=== PATIENT | male | born 1940 ===

== ENCOUNTER 2018-03-02 13:01 | Inpatient (IN) | payer OTHER ==
[2018-03-02] MEDS ORDERED: BISACODYL 10 MG SUPP PR PRN (16:27)
[2018-03-02] MEDS ORDERED: oxyCODONE IR 5 MG TAB PO PRN (16:32)
[2018-03-02] MEDS ORDERED: METHOCARBAMOL 750 MG TAB PO PRN (16:32)
[2018-03-02] MEDS ORDERED: DEXAMETHASONE 4 MG TAB PO SCH (16:45)
--- NOTE | 2018-03-02 18:26 | GHP ---
[f rep st] HISTORY AND PHYSICAL POST ADMISSION PHYSICIAN EVALUATION AND REHABILITATION TREATMENT PLAN DATE OF ADMISSION: 03/02/2018 DATE OF EVALUATION: 03/02/2018 TIME OF EVALUATION: 1635 REFERRING FACILITY: [facility] REFERRING PHYSICIAN: Dr. Hunt IMPAIRMENT GROUP: [id number] DATE OF ONSET: 02/23/2018 REHABILITATION DIAGNOSIS: Debility with bilateral upper extremity weakness due to spinal stenosis, status post C3-C6 anterior cervical diskectomy and fusion. ETIOLOGIC DIAGNOSIS: Other nontraumatic spinal cord dysfunction. DATE OF SURGERY: 02/27/2018. HISTORY OF PRESENT ILLNESS: This patient had progressive left arm and leg weakness since 02/07/2018. He also had some neck pain and right shoulder pain. He had decreased sensation in his hands. He saw his primary care provider on 02/07/2018, who arranged a cervical spine x-ray which showed multiple cervical spine stenoses. He also had a brain MRI recommended. He had significant worsening in the week prior to his hospitalization, so he came to the hospital. An MRI of the brain showed no evidence of a CVA. An MRI of the C-spine showed degenerative cervical and upper thoracic spondylosis, which had progressed since 2014. He had severe C3-C4 and C4-C5 spinal canal stenosis. He had focal myelopathic cord signal at C4-C5. He had moderate to severe C5-C6 and C6-C7 spinal canal stenosis. He had moderate C2-C3 spinal canal stenosis and mild to moderate T2-T3 spinal canal stenosis. He had a consult with Neurosurgery and was initially placed on dexamethasone 10 mg daily, and he had hospital admission. He underwent anterior cervical decompression and fusion from the C3 level to the C6 level on 02/27/2018. Postoperatively he continued to have upper extremity weakness consistent with a C5 palsy. He had dysphagia and eventually was on a dysphagia 1 pureed diet with nectar thick liquids. He had IV hydration. He had hyperglycemia on steroids due to his history of diabetes mellitus. He otherwise was medically stabilized and ready for inpatient rehabilitation. STUDIES AND LABS DURING HIS STAY: On the day of discharge he had a basic metabolic profile done which was overall within normal limits, but was consistent with dehydration with a BUN of 20 and a creatinine of 0.57. His glucose was elevated at 128. On the day of hospital admission, CBC was entirely within normal limits. Platelet count was at a low normal of 154. PRECAUTIONS: He is a fall risk. He has aspiration precautions. He additionally has orthopedic spine precautions in the cervical spine. ACTIVE COMORBIDITIES: He has the tier 2 comorbidity of dysphagia. He has diabetes mellitus type 2, but with no clear manifestations, so he does not have a tier 3 comorbidity. PAST MEDICAL HISTORY: 1. Diabetes mellitus type 2. 2. Hypertension. 3. Spinal stenosis. PAST SURGICAL HISTORY: Has not had any surgeries. PRE HOSPITAL MEDICATIONS: 1. Aspirin 81 mg p.o. daily. 2. Lisinopril 10 mg p.o. daily. 3. Metformin 500 mg p.o. twice daily. ADMISSION MEDICATIONS: 1. Acetaminophen 650 mg p.o. q.6 hours p.r.n. 2. Bisacodyl 10 mg CO daily p.r.n. 3. Dexamethasone taper over 1 week. 4. Lisinopril 10 mg p.o. at bedtime. 5. Metformin 500 mg p.o. twice daily. 6. Methocarbamol 750 mg p.o. three times daily p.r.n. 7. Oxycodone 5-10 mg p.o. q.12 hours p.r.n. 8. Senna 1 tablet p.o. twice daily. 9. Simvastatin 20 mg p.o. at bedtime. 10. Triamterene/hydrochlorothiazide 37.5/25 one p.o. daily. ALLERGIES: There are no known drug allergies. PSYCHOSOCIAL HISTORY: He is . He lives with his . He has a local son. There are several steps to enter, but once he is in his home there are no steps. He has a history of smoking, but is a nonsmoker. He does not have excessive alcohol use or use any substances of abuse. 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 FAMILY HISTORY: Noncontributory. REVIEW OF SYSTEMS: He is mildly thirsty. He is not in pain. He is on oxygen and is not sure why. He has not used oxygen in the past. He denies dyspnea or cough. He denies chest pain or palpitations. He denies nausea, vomiting, constipation, or diarrhea, and he has a good appetite. He denies dysuria or urinary frequency. He reports, due to arm weakness, he needed assistance to urinate. His legs are strong. His sensation is normal. He feels his swallowing has improved, especially since removal of the RAFAT drain. Otherwise, a 10-point review of systems is negative. PHYSICAL EXAMINATION: VITAL SIGNS: Vitals are not yet available in the chart. This morning in the hospital his blood pressure was 142/77, his heart rate was 66, his respiratory rate was 18, temperature was 96.9, oxygen saturation was 95%. Weight was 96 kg. GENERAL: This is a well-nourished, well-developed , overweight-appearing man lying in bed, wearing a cervical collar and street clothes, cooperative and in no acute distress. HEENT: Extraocular movements are intact. Pupils are equal, round, reactive to light. Mucous membranes are mildly dry. Dentition is in good condition. HEART: There is regular rate and rhythm with a 2/6 systolic ejection murmur at the left sternal border. LUNGS: Clear to auscultation bilaterally. ABDOMEN: Soft, nontender, nondistended with normoactive bowel sounds and no hepatosplenomegaly. EXTREMITIES: There is no cyanosis, clubbing, or edema. Radial and dorsalis pedis pulses are 2+ bilaterally. NEUROLOGIC: He is alert and oriented x3. Cranial nerves 2-12 are grossly intact including shoulder shrug bilaterally. Motor strength is 5/5 overall in the lower extremities. In the upper extremities bilaterally he has reduced shoulder extension and almost absent biceps flexion. It is 2+ on the right and absent on the left. Triceps are 3 to 4+ bilaterally. He has handgrip bilaterally, more so on the right than on the left. Deep tendon reflexes are absent bilaterally at the biceps. Sensation is intact to light touch. CURRENT LEVEL OF FUNCTION: Per the pre-admission screen regarding diet, feeding , and swallowing: He required maximal assist to eat with hand over hand assist with the right upper extremity. Grooming: Needed assistance. Bathing: Needed assistance. Dressing: Needed maximal assistance, especially for his shoes. Toileting: He needed assistance. Bed mobility required moderate assistance. Transfers required a 2 person max assist. He used a Betzy Stedy lift. He was noted to have balance deficits. His endurance was poor. Regarding gait, he was engaged in pre gait activities, standing with minimal assist in the Betzy Stedy. He could perform a lateral weight shift and marching in place. He used a tilt in space wheelchair for better trunk support and was up for 30 minutes at a time. Regarding cognition, he was noted to be alert and oriented x3. He was noted to have coordination deficits, impaired sensation, poor strength and poor trunk control. On today's exam, there are no significant changes from his preadmission screen. IMPRESSION: This is a 78-year-old man who had progressive weakness of the upper extremities, more so than the lower extremities as well as some sensory loss. He was diagnosed with stenosis of C-spine and the upper T-spine, which had progressed significantly over several years since prior radiologic exams. He was initially placed on high-dose dexamethasone. He underwent surgery after 4 days in the hospital on 02/27/2018 with a C3 through C6 anterior cervical decompression and fusion. Postoperatively he had pain control established. He had hyperglycemia due to dexamethasone. He had dysphagia which has been improving. He reports it has improved even more since the discontinuation of the RAFAT drain that was placed operatively. He is medically stable and appropriate for inpatient rehabilitation. His goal is to complete a rehabilitation stay and then return home with his family. For a safe discharge, it is expected that he will achieve contact guard to standby assist for mobility and ADLs. His swallowing will improve to the least restrictive diet. He will be medically stable regarding glycemic control and blood pressure control, and there will be no infection. There will be education for the patient and his family regarding spinal precautions and nutrition. He will have any durable medical equipment as needed. There will be family training for the patient to return home with home health services. He will have therapy with physical therapy, occupational therapy, and speech and language pathology for 60 minutes per day for each discipline on 5-7 days of the week. His expected duration of stay is 14-17 days. It is anticipated that upon discharge he will continue to benefit from home health services including speech and language pathology, occupational therapy and physical therapy. PLAN: 1. Upper extremity weakness with a C5 palsy, more so on the left than the right due to spinal stenosis and following C3-C6 ACDF on 02/27/2018. PT and OT to optimize mobility and activities of daily living to the standby assist to contact guard assist level of function. 2. Dysphagia due to neck surgery. Evaluation and treatment per Speech and Language Pathology. He will initially have modified diet textures with a pureed diet and nectar thick liquids. 3. Risk for dehydration. We will check a basic metabolic profile in the morning and observe for his ability to maintain hydration with the nectar thickened liquids. 4. Diabetes mellitus type 2. Continue metformin. Obtain basic metabolic profile in the morning, which will also give result for fasting glucose. Will consider supplemental insulin therapy while he is on dexamethasone. 5. Hypertension. Continue his current blood pressure medications and monitor his blood pressure. 6. Pain control. He does not appear to be in significant pain. Oxycodone was ordered on a q.12 basis. I have changed it to q.4 p.r.n. Continue acetaminophen as well as methocarbamol. 7. Hypoxia of unclear etiology. He has a heart murmur, but his presentation is not otherwise consistent with congestive heart failure. There was an EKG done prior to his surgery, which had some changes consistent with possible pulmonary disease, but otherwise showed normal sinus rhythm, also was consistent with possible left ventricular hypertrophy based on voltage criteria. Nurse reports that he had a chest x-ray in the hospital which showed only atelectasis. He will be monitored. He will have incentive spirometry. Will check a CBC in the morning. It is hoped that he can be liberated from oxygen during his stay. 8. Dyslipidemia. Continue atorvastatin. 9. Continue Decadron taper per Neurosurgery which should continue for 1 week, which would be through March 09, 2018. 10. Prophylaxis. He is at elevated risk for DVT and he was treated with enoxaparin in the hospital. We will continue enoxaparin until his mobility considerably improves. 11. Wound care. Discussed with Surgeon, Dr. Yeboah. Skin was closed with Dermabond. His incision should be open to air and he may shower daily. 12. Followup. Assuming that there are no complications with wound healing, he can follow up with Dr. Yeboah after his discharge from inpatient rehabilitation. /[id number]/MODL MTDD
[2018-03-02] MEDS: metFORMIN HCL 500 MG TAB PO SCH (18:30)
[2018-03-02] MEDS: DEXAMETHASONE 4 MG TAB PO SCH (19:54)
[2018-03-02] MEDS: SENNOSIDES/DOCUSATE SODIUM TAB PO SCH (19:55)
[2018-03-02] MEDS: ATORVASTATIN CALCIUM 10 MG TAB PO SCH (19:55)
[2018-03-02] MEDS: LISINOPRIL 10 MG TAB PO SCH (20:23)
[2018-03-03] MEDS: TRIAMTERENE/HCTZ 37.5/25 1 EACH TAB PO SCH (08:23)
[2018-03-03] MEDS: DEXAMETHASONE 4 MG TAB PO SCH ×2 (08:23→20:07)
[2018-03-03] MEDS: metFORMIN HCL 500 MG TAB PO SCH ×2 (08:23→18:48)
[2018-03-03] MEDS: SENNOSIDES/DOCUSATE SODIUM TAB PO SCH ×2 (08:24→23:42)
[2018-03-03] MEDS: ENOXAPARIN 40 MG/0.4 ML SYR SC SCH (08:24)
[2018-03-03 08:30] LABS: PLATELET COUNT 144 10^3/uL (150-400)
--- NOTE | 2018-03-03 10:52 | SOAPPROG ---
SOAP Progress Note Assessment/Plan: Assessment: Upper extremity weakness with a C5 palsy, more so on the left than the right due to spinal stenosis and following C3-C6 ACDF on 02/27/2018. * PT and OT to optimize mobility and activities of daily living to the standby assist to contact guard assist level of function. Dysphagia due to neck surgery. Evaluation and treatment per Speech and Language Pathology. He will initially have modified diet textures with a pureed diet and nectar thick liquids. Risk for dehydration. * BMP 03/03/2018 consistent with dehydration, with BUN of 25 and creatinine of 0.6. Continue to encourage oral hydration. Repeat BMP in a.m. Diabetes mellitus type 2. Continue metformin. * Fasting glucose mildly elevated at 104 on BMP 03/03/2018. * Dexamethasone taper from 4 mg twice daily to 2 mg twice daily starting tomorrow, 03/04/2018. Will not initiate insulin. Hypertension. Continue his current blood pressure medications and monitor his blood pressure. Pain control. He does not appear to be in significant pain. Oxycodone was ordered on a q.12 basis. I have changed it to q.4 p.r.n. Continue acetaminophen as well as methocarbamol. Hypoxia due to pneumonia. He has a heart murmur, but his presentation is not otherwise consistent with congestive heart failure and BNP 03/03/2018 ruled out congestive heart failure. * EKG prior to his surgery had changes consistent with possible pulmonary disease, but otherwise showed normal sinus rhythm, also was consistent with possible left ventricular hypertrophy based on voltage criteria. * Nurse reports that he had a chest x-ray in the hospital which showed only atelectasis. Continue incentive spirometry. * Chest CT 03/03/2018 ruled out pulmonary embolus but showed right lower lobe pneumonia. Initiating levofloxacin 750 mg q.day for 5 days starting 03/03/2018. Repeat CBC in the morning to evaluate response regarding leukocytosis. Dyslipidemia. Continue atorvastatin. Continue Decadron taper per Neurosurgery, through March 09, 2018. Prophylaxis. He is at elevated risk for DVT and he was treated with enoxaparin in the hospital. We will continue enoxaparin until his mobility considerably improves. Wound care. Discussed with Surgeon, Dr. Yeboah. Skin was closed with Dermabond. His incision should be open to air and he may shower daily. Followup. Assuming that there are no complications with wound healing, he can follow up with Dr. Yeboah after his discharge from inpatient rehabilitation. 03/03/18 18:12 Subjective: No complaints this morning. Reports he had difficulty falling asleep but eventually slept for few hours. Pain was not interfering with sleep and he is not in pain currently. No cough or dyspnea, no fevers or chills. Objective: Vital Signs Temp Pulse Resp BP Pulse Ox 36.6 C 60 17 143/88 H 95 03/03/18 07:29 03/03/18 07:29 03/03/18 07:29 03/03/18 08:23 03/03/18 07:29 Laboratory Results 03/03/18 06:00 03/03/18 06:00 03/02/18 03/03/18 03/04/18 05:59 05:59 05:59 Intake Total 300 175 Output Total 350 Balance -50 175 Physical Exam - Physical Exam General Appearance: WD/WN, alert, no apparent distress Respiratory: normal breath sounds, No crackles, No rhonchi, No wheezing Cardiac/Chest: regular rate, rhythm, tachycardia, systolic murmur, No edema Skin: normal color, warm/dry Extremities: No calf tenderness Neuro/Psych: alert, normal mood/affect, oriented x 3, motor weakness (Bilateral upper extremities) ICD10 Worksheet Patient Problems: Problems Problem Status Onset S/P cervical spinal fusion Acute Cervical spinal stenosis Acute
--- NOTE | 2018-03-03 11:27 | PDOREHIP ---
Admission [facility] - Admission - 3 Day Assessment Period Admission Date/Day 1: 03/02/18 Day 2: 03/03/18 Day 3: 03/04/18 - Active Diagnoses Comorbidities and Co-existing Conditions at Admission: 33274. None of the Above - Skin Conditions Unhealed Pressure Ulcer (1 or more/Stage 1 or >)-Admission: 0. No
[2018-03-03] MEDS: ATORVASTATIN CALCIUM 10 MG TAB PO SCH (20:07)
[2018-03-03] MEDS: LISINOPRIL 10 MG TAB PO SCH (20:07)
[2018-03-04] MEDS ORDERED: DEXAMETHASONE 4 MG/ML VIAL PO SCH (08:00)
[2018-03-04] MEDS: metFORMIN HCL 500 MG TAB PO SCH ×2 (08:15→18:01)
[2018-03-04] MEDS: ENOXAPARIN 40 MG/0.4 ML SYR SC SCH (08:15)
[2018-03-04] MEDS: TRIAMTERENE/HCTZ 37.5/25 1 EACH TAB PO SCH (08:15)
[2018-03-04] MEDS: DEXAMETHASONE 2 MG TAB PO SCH ×2 (08:16→20:06)
[2018-03-04] MEDS: SENNOSIDES/DOCUSATE SODIUM TAB PO SCH ×2 (08:17→20:06)
--- NOTE | 2018-03-04 11:35 | SOAPPROG ---
SOAP Progress Note Assessment/Plan: Assessment: Upper extremity weakness with a C5 palsy, more so on the left than the right due to spinal stenosis and following C3-C6 ACDF on 02/27/2018. * PT and OT to optimize mobility and activities of daily living to the standby assist to contact guard assist level of function. Dysphagia due to neck surgery. Evaluation and treatment per Speech and Language Pathology. He will initially have modified diet textures with a pureed diet and nectar thick liquids. Risk for dehydration. * BMP 03/03/2018 consistent with dehydration, with BUN of 25 and creatinine of 0.6. Continue to encourage oral hydration. Repeat BMP in a.m. AGAIN ENCOURAGED FLUID INTAKE COMPLIANT WITH NECTAR THICK LIQUIDS. WILL ASK SPEECH THERAPY WHEN SHE ANTICIPATES HIS RETURN TO REGULAR LIQUIDS WHICH WILL HELP IMPROVE HYDRATION STATUS. Diabetes mellitus type 2. Continue metformin. * Fasting glucose mildly elevated at 104 on BMP 03/03/2018. * Dexamethasone taper from 4 mg twice daily to 2 mg twice daily starting tomorrow, 03/04/2018. Will not initiate insulin. Hypertension. Continue his current blood pressure medications and monitor his blood pressure. BLOOD PRESSURE THIS MORNING 110/71 Pain control. He does not appear to be in significant pain. Oxycodone was ordered on a q.12 basis. I have changed it to q.4 p.r.n. Continue acetaminophen as well as methocarbamol. Hypoxia due to pneumonia. He has a heart murmur, but his presentation is not otherwise consistent with congestive heart failure and BNP 03/03/2018 ruled out congestive heart failure. * EKG prior to his surgery had changes consistent with possible pulmonary disease, but otherwise showed normal sinus rhythm, also was consistent with possible left ventricular hypertrophy based on voltage criteria. * Nurse reports that he had a chest x-ray in the hospital which showed only atelectasis. Continue incentive spirometry. * Chest CT 03/03/2018 ruled out pulmonary embolus but showed right lower lobe pneumonia. Initiating levofloxacin 750 mg q.day for 5 days starting 03/03/2018. Repeat CBC in the morning to evaluate response regarding leukocytosis. HE REPORTS HE IS COMFORTABLE ON 4 L O2 PER NASAL CANNULA. Dyslipidemia. Continue atorvastatin. Continue Decadron taper per Neurosurgery, through March 09, 2018. Prophylaxis. He is at elevated risk for DVT and he was treated with enoxaparin in the hospital. We will continue enoxaparin until his mobility considerably improves. Wound care. Discussed with Surgeon, Dr. Yeboah. Skin was closed with Dermabond. His incision should be open to air and he may shower daily. Followup. Assuming that there are no complications with wound healing, he can follow up with Dr. Yeboah after his discharge from inpatient rehabilitation. Plan: 03/04/18 11:35 Subjective: HE DOES NOT COMPLAIN OF SHORTNESS OF BREATH THIS MORNING. HE HE REPORTS HE FEELS COMFORTABLE ON 4 L O2 PER NASAL CANNULA. HE REPORTS HE IS TOLERATING THE NECTAR THICK LIQUIDS WITHOUT MUCH DIFFICULTY. HE HAS NOT EXPERIENCED SIGNIFICANT MOTOR RETURN IN EITHER UPPER EXTREMITY. HE REPORTS HE HAS TINGLING IN HIS HANDS. Objective: Vital Signs Temp Pulse Resp BP Pulse Ox 36.6 C 78 17 110/71 95 03/04/18 07:58 03/04/18 07:58 03/04/18 07:58 03/04/18 08:15 03/04/18 07:58 Laboratory Results 03/03/18 06:00 03/03/18 06:00 03/03/18 03/04/18 03/05/18 05:59 05:59 05:59 Intake Total 300 1075 380 Output Total 350 1900 500 Balance -50 -825 -120 Physical Exam - Physical Exam General Appearance: WD/WN, alert, no apparent distress EENT: other (ORAL MUCOSA DRY) Neck: non-tender, full range of motion, supple Respiratory: lungs clear, No normal breath sounds (SLIGHTLY DECREASED BREATH SOUNDS. HE IS MOVING AIR FAIRLY WELL. NO CRACKLES RHONCHI OR WHEEZING.) Cardiac/Chest: No edema Abdomen: normal bowel sounds, non-tender Skin: normal color, warm/dry, other (POSITIVE TENTING) Neuro/Psych: motor weakness (WEAKNESS ON MOTOR EXAM RESEMBLES CENTRAL CORD SYNDROME 3+ 4-/5 RIGHT AND LEFT HIP FLEXORS, QUADRICEPS, HAMSTRINGS) ICD10 Worksheet Patient Problems: Problems Problem Status Onset Cervical spinal stenosis Acute S/P cervical spinal fusion Acute
[2018-03-04] MEDS: ATORVASTATIN CALCIUM 10 MG TAB PO SCH (20:06)
[2018-03-04] MEDS: LISINOPRIL 10 MG TAB PO SCH (20:06)
[2018-03-04] MEDS: ACETAMINOPHEN 325 MG TAB PO PRN (20:07)
[2018-03-04] MEDS: MELATONIN 3 MG TAB PO PRN (20:25)
[2018-03-05] MEDS: metFORMIN HCL 500 MG TAB PO SCH ×2 (08:48→17:46)
[2018-03-05] MEDS: TRIAMTERENE/HCTZ 37.5/25 1 EACH TAB PO SCH (08:49)
[2018-03-05] MEDS: SENNOSIDES/DOCUSATE SODIUM TAB PO SCH ×2 (08:49→20:23)
[2018-03-05] MEDS: DEXAMETHASONE 2 MG TAB PO SCH ×2 (08:49→20:22)
[2018-03-05 08:51] LABS: PLATELET COUNT 133 10^3/uL (150-400)
[2018-03-05] MEDS: ENOXAPARIN 40 MG/0.4 ML SYR SC SCH (08:53)
--- NOTE | 2018-03-05 12:01 | SOAPPROG ---
SOAP Progress Note Assessment/Plan: Assessment: Upper extremity weakness PREDOMINANTLY IN C5 AND C6 MYOTOMES., more so on the left than the right due to spinal stenosis and following C3-C6 ACDF on 2017. WE WILL DISCUSS WITH DR. SUÁREZ IN A.M. TO WHETHER PATIENT NEEDS FOLLOW -UP CERVICAL SPINE IMAGING GIVEN LACK OF IMPROVEMENT OF C5 AND C6 MOTOR RETURN. * PT and OT to optimize mobility and activities of daily living to the standby assist to contact guard assist level of function. PHYSICAL OCCUPATIONAL THERAPY ARE ADDRESSING POSTURE TO MINIMIZE DORSAL KYPHOSIS WHICH IN TURN WILL HELP MINIMIZE SCAPULAR DYSFUNCTION. PATIENT IS BEING TAUGHT PROPER UPPER EXTREMITY POSITIONING TO OPTIMIZE STRENGTH FOR SIT TO STAND TRANSFERS. Dysphagia due to neck surgery. Evaluation and treatment per Speech and Language Pathology. He will initially have modified diet textures with a pureed diet and nectar thick liquids. Risk for dehydration. * BMP 03/04/1827 WITH CREATININE 0.7. BMP 03/03/2018 consistent with dehydration , with BUN of 25 and creatinine of 0.6. Continue to encourage oral hydration. Repeat BMP in a.m. AGAIN ENCOURAGED FLUID INTAKE COMPLIANT WITH NECTAR THICK LIQUIDS. WILL ASK SPEECH THERAPY WHEN SHE ANTICIPATES HIS RETURN TO REGULAR LIQUIDS TO IMPROVE HYDRATION STATUS. Diabetes mellitus type 2. Continue metformin. * Fasting glucose mildly elevated at 104 on BMP 03/03/2018. * Dexamethasone taper from 4 mg twice daily to 2 mg twice daily starting tomorrow, 03/04/2018. Will not initiate insulin. Hypertension. Continue his current blood pressure medications and monitor his blood pressure. BLOOD PRESSURE THIS MORNING 111/68 Pain control. He does not appear to be in significant pain. Oxycodone was ordered on a q.12 basis. I have changed it to q.4 p.r.n. Continue acetaminophen as well as methocarbamol. Hypoxia due to pneumonia. CURRENTLY ON 3 L O2 PER NASAL CANNULA. He has a heart murmur, but his presentation is not otherwise consistent with congestive heart failure and BNP 03/03/2018 ruled out congestive heart failure. * EKG prior to his surgery had changes consistent with possible pulmonary disease, but otherwise showed normal sinus rhythm, also was consistent with possible left ventricular hypertrophy based on voltage criteria. * Nurse reports that he had a chest x-ray in the hospital which showed only atelectasis. Continue incentive spirometry. * Chest CT 03/03/2018 ruled out pulmonary embolus but showed right lower lobe pneumonia. Initiating levofloxacin 750 mg q.day for 5 days starting 03/03/2018. Repeat CBC in the morning to evaluate response regarding leukocytosis. H Dyslipidemia. Continue atorvastatin. LEUKOCYTOSIS: WBC THIS A.M. 11.95, YESTERDAY WAS 12.01 AND PROBABLY SECONDARY TO PATIENT BEING ON DECADRON. WILL CONTINUE TO MONITOR. Continue Decadron taper per Neurosurgery, through March 09, 2018. Prophylaxis. He is at elevated risk for DVT and he was treated with enoxaparin in the hospital. We will continue enoxaparin until his mobility considerably improves. Wound care. Discussed with Surgeon, Dr. Yeboah. Skin was closed with Dermabond. His incision should be open to air and he may shower daily. Followup. Assuming that there are no complications with wound healing, he can follow up with Dr. Yeboah after his discharge from inpatient rehabilitation. Plan: 03/04/18 11:35 03/05/18 11:55 Subjective: HE DENIES SHORTNESS OF BREATH. HE DOES NOT VERBALIZE ANY OTHER COMPLAINTS. Objective: Vital Signs Temp Pulse Resp BP Pulse Ox 36.4 C 63 16 111/68 95 03/05/18 05:44 03/05/18 05:44 03/05/18 05:44 03/05/18 08:49 03/05/18 08:00 Laboratory Results 03/05/18 06:00 03/05/18 06:00 03/04/18 03/05/18 03/06/18 05:59 05:59 05:59 Intake Total 1075 1006 Output Total 1900 1300 500 Balance -825 -294 -500 Physical Exam - Physical Exam General Appearance: WD/WN, alert, no apparent distress EENT: other (O2 PER NASAL CANNULA) Respiratory: lungs clear, normal breath sounds Abdomen: normal bowel sounds, non-tender Skin: warm/dry Extremities: No swelling, No Emma's sign Neuro/Psych: motor weakness (PREDOMINANTLY UPPER EXTREMITY WEAKNESS AND C5 AND C6 DERMATOMES. 4+/5 TRICEPS 4/5 HAND INTRINSICS NO ANKLE CLONUS.) ICD10 Worksheet Patient Problems: Problems Problem Status Onset Cervical spinal stenosis Acute S/P cervical spinal fusion Acute
[2018-03-05] MEDS ORDERED: ONDANSETRON DISINTEGRATING 4 MG TAB PO PRN (12:37)
[2018-03-05] MEDS ORDERED: MAG HYDROX/AL HYDROX/SIMETH 30 ML UDCUP PO ONE (12:45)
[2018-03-05] MEDS ORDERED: MAG HYDROX/AL HYDROX/SIMETH 30 ML UDCUP ONE (13:00)
[2018-03-05] MEDS: ATORVASTATIN CALCIUM 10 MG TAB PO SCH (20:22)
[2018-03-05] MEDS: LISINOPRIL 10 MG TAB PO SCH (20:23)
[2018-03-06] MEDS: DEXAMETHASONE 2 MG TAB PO SCH (08:47)
[2018-03-06] MEDS: ENOXAPARIN 40 MG/0.4 ML SYR SC SCH (08:47)
[2018-03-06] MEDS: SENNOSIDES/DOCUSATE SODIUM TAB PO SCH ×2 (08:48→20:16)
[2018-03-06] MEDS: metFORMIN HCL 500 MG TAB PO SCH ×2 (08:48→18:38)
[2018-03-06] MEDS: TRIAMTERENE/HCTZ 37.5/25 1 EACH TAB PO SCH (08:51)
--- NOTE | 2018-03-06 12:28 | SOAPPROG ---
SOAP Progress Note Assessment/Plan: Assessment: Upper extremity weakness PREDOMINANTLY IN C5 AND C6 MYOTOMES., more so on the left than the right due to spinal stenosis and following C3-C6 ACDF on 2017. Discussed case with Dr. Brandon who does not feel that patient needs to be reimaged at this time. Dr. Monique stated that patient has classic C5 nerve palsy. * PT and OT to optimize mobility and activities of daily living to the standby assist to contact guard assist level of function. PHYSICAL OCCUPATIONAL THERAPY ARE ADDRESSING POSTURE TO MINIMIZE DORSAL KYPHOSIS WHICH IN TURN WILL HELP MINIMIZE SCAPULAR DYSFUNCTION. PATIENT IS BEING TAUGHT PROPER UPPER EXTREMITY POSITIONING TO OPTIMIZE STRENGTH FOR SIT TO STAND TRANSFERS. Dysphagia due to neck surgery. Speech therapy reports he will have water protocol trial today. Discussed with team importance of keeping patient hydrated. Risk for dehydration. Most recent BUN and creatinine was 27/0.7. Will consider starting IV fluids if patient cannot tolerate water protocol. * BMP ordered for 03/07 Diabetes mellitus type 2. Continue metformin. * Fasting glucose mildly elevated at 104 on BMP 03/03/2018. * Dexamethasone taper from 4 mg twice daily to 2 mg twice daily starting tomorrow, 03/04/2018. Will not initiate insulin. Hypertension. Continue his current blood pressure medications and monitor his blood pressure. BLOOD PRESSURE THIS MORNING 116/84 Pain control. He does not appear to be in significant pain. Oxycodone was ordered on a q.12 basis. I have changed it to q.4 p.r.n. Continue acetaminophen as well as methocarbamol. Hypoxia due to pneumonia. CURRENTLY ON 3 L O2 PER NASAL CANNULA. He has a heart murmur, but his presentation is not otherwise consistent with congestive heart failure and BNP 03/03/2018 ruled out congestive heart failure. * EKG prior to his surgery had changes consistent with possible pulmonary disease, but otherwise showed normal sinus rhythm, also was consistent with possible left ventricular hypertrophy based on voltage criteria. * Nurse reports that he had a chest x-ray in the hospital which showed only atelectasis. Continue incentive spirometry. * Chest CT 03/03/2018 ruled out pulmonary embolus but showed right lower lobe pneumonia. Initiating levofloxacin 750 mg q.day for 5 days starting 03/03/2018. Repeat CBC in the morning to evaluate response regarding leukocytosis. H Dyslipidemia. Continue atorvastatin. LEUKOCYTOSIS: WBC THIS A.M. 11.95, YESTERDAY WAS 12.01 AND PROBABLY SECONDARY TO PATIENT BEING ON DECADRON. WILL CONTINUE TO MONITOR. Continue Decadron taper per Neurosurgery, through March 09, 2018. Prophylaxis. He is at elevated risk for DVT and he was treated with enoxaparin in the hospital. We will continue enoxaparin until his mobility considerably improves. Wound care. Discussed wound drainage with Dr. Brandon. Relayed that patient has had copious serosanguineous drainage but could not identify whether this was coming from the incision or the previous drain site. Dr. Bradnon informed that they do not come over here and suggested placing a stitch to close the drain site if this is the point of leakage. Discussed with him if wound care nurse could do this and he said he would be okay with this. He indicated that no on from his office would be coming over here. Followup. Assuming that there are no complications with wound healing, he can follow up with Dr. Yeboah after his discharge from inpatient rehabilitation. Plan: 03/04/18 11:35 03/05/18 11:55 03/06/18 12:30 Subjective: He does not report any complaints or concerns this morning. Per nursing the cervical incision tends to drain copious amounts of serosanguineous fluid. He reports no improvement in upper extremity strength. Objective: Vital Signs Temp Pulse Resp BP Pulse Ox 36.6 C 72 18 116/54 L 93 03/06/18 05:15 03/06/18 05:15 03/06/18 05:15 03/06/18 08:51 03/06/18 11:05 Laboratory Results 03/05/18 06:00 03/05/18 06:00 03/05/18 03/06/18 03/07/18 05:59 05:59 05:59 Intake Total 1006 510 480 Output Total 1300 1925 450 Balance -294 -1415 30 Physical Exam - Physical Exam General Appearance: WD/WN, alert, no apparent distress Neck: other (Hard cervical collar in place) Respiratory: lungs clear, normal breath sounds Cardiac/Chest: No edema Abdomen: non-tender, soft Skin: other (Inspected cervical incision which is slightly erythematous 4 x 4 gauze dressing with small amount of serosanguineous drainage. Not foul- smelling. Unable to visualize drainage site) Neuro/Psych: motor weakness (C5 and possibly C6 nerve palsy) ICD10 Worksheet Patient Problems: Problems Problem Status Onset Cervical spinal stenosis Acute S/P cervical spinal fusion Acute
[2018-03-06] MEDS: ACETAMINOPHEN 325 MG TAB PO PRN (18:35)
[2018-03-06] MEDS: ATORVASTATIN CALCIUM 10 MG TAB PO SCH (20:16)
[2018-03-06] MEDS: MELATONIN 3 MG TAB PO PRN (20:16)
[2018-03-06] MEDS: LISINOPRIL 10 MG TAB PO SCH (20:16)
[2018-03-06] MEDS: NYSTATIN POWDER 15 GM BTL TP SCH (22:35)
[2018-03-07] MEDS: ACETAMINOPHEN 325 MG TAB PO PRN ×2 (07:24→18:00)
[2018-03-07] MEDS: DEXAMETHASONE 2 MG TAB PO SCH (07:25)
[2018-03-07] MEDS: metFORMIN HCL 500 MG TAB PO SCH ×2 (07:25→17:51)
[2018-03-07] MEDS: NYSTATIN POWDER 15 GM BTL TP SCH ×3 (07:25→23:25)
[2018-03-07] MEDS: SENNOSIDES/DOCUSATE SODIUM TAB PO SCH ×2 (07:33→20:22)
[2018-03-07] MEDS: TRIAMTERENE/HCTZ 37.5/25 1 EACH TAB PO SCH (07:33)
[2018-03-07] MEDS: CEPHALEXIN 500 MG CAP PO SCH ×3 (13:32→23:20)
[2018-03-07] MEDS: ENOXAPARIN 40 MG/0.4 ML SYR SC SCH (13:32)
[2018-03-07] MEDS ORDERED: NS W/ 20 KCl/L 1,000 ML IV SCH ×2 (16:45→18:30)
--- NOTE | 2018-03-07 16:49 | SOAPPROG ---
SOAP Progress Note Assessment/Plan: Assessment: Upper extremity weakness with a C5 palsy, more so on the left than the right due to spinal stenosis and following C3-C6 ACDF on 02/27/2018. * Initial functional independence measure is 48. He requires assist of 2 people for transfers. Moderate assist for bed mobility. Minimal assist for ambulating up to 60 ft with front wheeled walker and 2nd person following with wheelchair. Maximal assist for dressing. He continues to be limited by bilateral upper extremity weakness but can move if not antigravity. * Continue PT and OT to optimize mobility and activities of daily living to the standby assist to contact guard assist level of function. Dysphagia due to neck surgery. * Advanced to dysphagia 2 textures, continues nectar thick liquids. * Continue treatment per Speech and Language Pathology. Hyponatremia, with sodium 132 on 03/05/2018 and 129 on 03/07/2018. May be related to dehydration and reduced volume status, along with diuretic treatment. * Evaluate for SIADH with serum and urine osmolality, serum uric acid and urine random sodium. * More likely hypovolemic. Will hold triamterene/hydrochlorothiazide tomorrow morning. Will treat with normal saline +20 of K 1000 cc at 75 cc/hour. * Repeat BMP in the morning 03/08/2018. Possible CSF leak. * Seen in neurosurgery clinic today, 03/07/2018, and drain site in neck was stapled closed. * No drainage when evaluated this afternoon, 03/07/2018. * Continue cephalexin ordered by Neurosurgery. * Head of bed at 30 degrees and maintained upright as much as possible. Diabetes mellitus type 2. Continue metformin. * Fasting glucose mildly elevated at 104 on BMP 03/03/2018. * Dexamethasone taper from 4 mg twice daily to 2 mg twice daily starting tomorrow, 03/04/2018. Will not initiate insulin. Hypertension. Continue his current blood pressure medications and monitor his blood pressure. * Hold doing triamterene/hydrochlorothiazide starting 03/08/2018 due to dehydration and hyponatremia. Insomnia. Trial of trazodone 50 mg at HS, starting 03/07/2018. Pain control. He does not appear to be in significant pain. Oxycodone was ordered on a q.12 basis. I have changed it to q.4 p.r.n. Continue acetaminophen as well as methocarbamol. Hypoxia due to pneumonia. He has a heart murmur, but his presentation is not otherwise consistent with congestive heart failure and BNP 03/03/2018 ruled out congestive heart failure. * EKG prior to his surgery had changes consistent with possible pulmonary disease, but otherwise showed normal sinus rhythm, also was consistent with possible left ventricular hypertrophy based on voltage criteria. * Nurse reports that he had a chest x-ray in the hospital which showed only atelectasis. Continue incentive spirometry. * Chest CT 03/03/2018 ruled out pulmonary embolus but showed right lower lobe pneumonia. Initiating levofloxacin 750 mg q.day for 5 days starting 03/03/2018. Repeat CBC in the morning to evaluate response regarding leukocytosis. * Hypoxia is resolved. White count was improving on 03/05/2018. Will recheck on 03/08/2018. Thrombocytopenia. Recheck CBC 12/2017. Dyslipidemia. Continue atorvastatin. Continue Decadron taper per Neurosurgery, through March 09, 2018. Prophylaxis. He is at elevated risk for DVT and he was treated with enoxaparin in the hospital. Continue enoxaparin until his mobility considerably improves. Wound care. Discussed with Surgeon, Dr. Yeboah. Skin was closed with Dermabond. His incision should be open to air and he may shower daily. Followup. Assuming that there are no complications with wound healing, he can follow up with Dr. Yeboah after his discharge from inpatient rehabilitation. 03/07/18 16:39 Subjective: No pain but complains of generalized discomfort. He has had trouble sleeping and melatonin did not help last night. No cough or dyspnea, no fevers or chills. Concerned that he may be unable to find his nurse call because of difficulty moving his arms. Objective: Vital Signs Temp Pulse Resp BP Pulse Ox 37.0 C 86 18 112/73 92 03/07/18 11:00 03/07/18 11:00 03/07/18 11:00 03/07/18 11:00 03/07/18 11:00 Laboratory Results 03/05/18 06:00 03/07/18 11:20 03/06/18 03/07/18 03/08/18 05:59 05:59 05:59 Intake Total 510 1480 600 Output Total 1925 1375 400 Balance -1415 105 200 Physical Exam - Physical Exam General Appearance: WD/WN, alert, no apparent distress Neck: other (No drainage. New wound staple over drain site.) Respiratory: normal breath sounds, No crackles, No rhonchi, No wheezing Cardiac/Chest: regular rate, rhythm, No edema, No diastolic murmur, No systolic murmur Skin: normal color, warm/dry Neuro/Psych: alert, normal mood/affect, oriented x 3, abnormal gait (Pes planus on right, Trendelenburg gait on left), motor weakness (Bilateral upper extremities at biceps primarily) ICD10 Worksheet Patient Problems: Problems Problem Status Onset Cervical spinal stenosis Acute S/P cervical spinal fusion Acute
[2018-03-07] MEDS: LISINOPRIL 10 MG TAB PO SCH (19:39)
[2018-03-07] MEDS: ATORVASTATIN CALCIUM 10 MG TAB PO SCH (20:22)
[2018-03-07] MEDS ORDERED: traZODone 50 MG TAB PO SCH (21:00)
[2018-03-08] MEDS: CEPHALEXIN 500 MG CAP PO SCH ×4 (05:27→23:30)
[2018-03-08] MEDS: ENOXAPARIN 40 MG/0.4 ML SYR SC SCH (08:45)
[2018-03-08] MEDS: metFORMIN HCL 500 MG TAB PO SCH ×2 (08:45→17:48)
[2018-03-08] MEDS: DEXAMETHASONE 2 MG TAB PO SCH (08:45)
[2018-03-08] MEDS: SENNOSIDES/DOCUSATE SODIUM TAB PO SCH ×2 (08:46→20:27)
[2018-03-08] MEDS: NYSTATIN POWDER 15 GM BTL TP SCH ×3 (08:46→20:28)
[2018-03-08] MEDS ORDERED: METHYL SALICYLATE/MENTHOL OINTMENT TP PRN (09:52)
[2018-03-08 10:07] LABS: PLATELET COUNT 154 10^3/uL (150-400)
[2018-03-08] MEDS ORDERED: ZOLPIDEM TARTRATE 5 MG TAB PO PRN (10:42)
--- NOTE | 2018-03-08 10:48 | SOAPPROG ---
SOAP Progress Note Assessment/Plan: Assessment: Upper extremity weakness with a C5 palsy, more so on the left than the right due to spinal stenosis and following C3-C6 ACDF on 02/27/2018. * Initial functional independence measure is 48. He requires assist of 2 people for transfers. Moderate assist for bed mobility. Minimal assist for ambulating up to 60 ft with front wheeled walker and 2nd person following with wheelchair. Maximal assist for dressing. He continues to be limited by bilateral upper extremity weakness but can move if not antigravity. * Continue PT and OT to optimize mobility and activities of daily living to the standby assist to contact guard assist level of function. Dysphagia due to neck surgery. * Advanced to dysphagia 2 textures, continues nectar thick liquids. * Continue treatment per Speech and Language Pathology. Hyponatremia, with sodium 132 on 03/05/2018 and 129 on 03/07/2018. May be related to dehydration and reduced volume status, along with diuretic treatment. * Improved after IV hydration and with discontinuation of triamterene/ hydrochlorothiazide. Sodium 134 on 03/08/2018. * Evaluate for SIADH with serum and urine osmolality, serum uric acid and urine random sodium. * Discontinue diuretic Hypertension. Continue his current blood pressure medications and monitor his blood pressure. * Will likely initiate amlodipine if his blood pressure becomes high again Possible CSF leak. * Seen in neurosurgery clinic, 03/07/2018, and drain site in neck was stapled closed. * Drainage appears to have resolved. * Continue cephalexin ordered by Neurosurgery. * Head of bed at 30 degrees and maintained upright as much as possible. Leukocytosis, with higher white blood cell count on 03/08/2018. Still on Decadron and may have to do with resolving pneumonia, versus process in neck related to CSF drainage and phlegm production. Continue to monitor symptomatically. No signs or symptoms of infection at present. * Procalcitonin is low, 03/08/2018, so likelihood of a bacterial infection is very low. Diabetes mellitus type 2. Continue metformin. * Fasting glucose mildly elevated at 104 on [facility] 03/03/2018. * Dexamethasone taper from 4 mg twice daily to 2 mg twice daily starting tomorrow, 03/04/2018. Will not initiate insulin. Insomnia. * Trazodone was not effective, at on 03/07/2018. * Trial of zolpidem 10 mg at 03/08/2018. * Expect improvement when dexamethasone is completed, after 03/09/2018. Pain control. He does not appear to be in significant pain. Oxycodone was ordered on a q.12 basis. I have changed it to q.4 p.r.n. Continue acetaminophen as well as methocarbamol. Hypoxia due to pneumonia. He has a heart murmur, but his presentation is not otherwise consistent with congestive heart failure and BNP 03/03/2018 ruled out congestive heart failure. * EKG prior to his surgery had changes consistent with possible pulmonary disease, but otherwise showed normal sinus rhythm, also was consistent with possible left ventricular hypertrophy based on voltage criteria. * Nurse reports that he had a chest x-ray in the hospital which showed only atelectasis. Continue incentive spirometry. * Chest CT 03/03/2018 ruled out pulmonary embolus but showed right lower lobe pneumonia. Initiating levofloxacin 750 mg q.day for 5 days starting 03/03/2018. Repeat CBC in the morning to evaluate response regarding leukocytosis. * Hypoxia is resolved. Thrombocytopenia. Resolved on CBC 12/2017. Dyslipidemia. Continue atorvastatin. Continue Decadron taper per Neurosurgery, through March 09, 2018. Prophylaxis. He is at elevated risk for DVT and he was treated with enoxaparin in the hospital. Continue enoxaparin until his mobility considerably improves. Wound care. Discussed with Surgeon, Dr. Yeboah. Skin was closed with Dermabond. His incision should be open to air and he may shower daily. Followup. Assuming that there are no complications with wound healing, he can follow up with Dr. Yeboah after his discharge from inpatient rehabilitation. 03/08/18 10:49 03/08/18 12:37 Subjective: Slept intermittently last night. No cough or dyspnea but he is bringing up phlegm and has to clear his throat and expectorated phlegm periodically. He says this happens nurse twice through the night. He has generalized discomfort related to being unable to reposition himself at night. He denies symptoms of URI or sinusitis. He has left shoulder plain with history of arthritis on requests something topical. Objective: Vital Signs Temp Pulse Resp BP Pulse Ox 36.3 C 79 18 125/76 H 94 03/08/18 05:48 03/08/18 05:48 03/08/18 05:48 03/08/18 05:48 03/08/18 05:48 Laboratory Results 03/08/18 06:00 03/08/18 06:00 03/07/18 03/08/18 03/09/18 05:59 05:59 05:59 Intake Total 1480 2121 180 Output Total 1375 1325 400 Balance 105 796 -220 Physical Exam - Physical Exam General Appearance: WD/WN, alert, no apparent distress EENT: other (Scant posterior oropharyngeal mucus visible), No purulent nasal drainage, No rhinorrhea, No pharyngeal erythema Respiratory: normal breath sounds, No crackles, No rhonchi, No wheezing Cardiac/Chest: regular rate, rhythm, No edema, No diastolic murmur, No systolic murmur Skin: normal color, warm/dry Neuro/Psych: alert, normal mood/affect, oriented x 3, abnormal gait (Ambulates with front wheeled walker, contact guard assist by PT with a 2nd PT follow with wheelchair. Pes planus on right, Trendelenburg on left.), motor weakness ( Bilateral biceps) ICD10 Worksheet Patient Problems: Problems Problem Status Onset Cervical spinal stenosis Acute S/P cervical spinal fusion Acute
[2018-03-08] MEDS: LISINOPRIL 10 MG TAB PO SCH (20:27)
[2018-03-08] MEDS: ATORVASTATIN CALCIUM 10 MG TAB PO SCH (20:27)
[2018-03-08] MEDS ORDERED: NS W/ 20 KCl/L 1,000 ML IV SCH (21:00)
[2018-03-09] MEDS: CEPHALEXIN 500 MG CAP PO SCH ×2 (05:02→16:58)
[2018-03-09] MEDS: DEXAMETHASONE 2 MG TAB PO SCH (08:33)
[2018-03-09] MEDS: ENOXAPARIN 40 MG/0.4 ML SYR SC SCH (08:34)
[2018-03-09] MEDS: metFORMIN HCL 500 MG TAB PO SCH (08:34)
[2018-03-09] MEDS: NYSTATIN POWDER 15 GM BTL TP SCH ×2 (08:34→18:58)
[2018-03-09] MEDS: SENNOSIDES/DOCUSATE SODIUM TAB PO SCH (08:35)
[2018-03-09 09:07] VITALS: BP 96/59
[2018-03-09 10:08] LABS: PLATELET COUNT 150 10^3/uL (150-400)
--- NOTE | 2018-03-09 12:16 | SOAPPROG ---
SOAP Progress Note Assessment/Plan: Assessment: ALTERED PHONATION AND DECLINE IN SWALLOWING FUNCTION, MADE NPO BY SPEECH THERAPY , 03/09/2018. SENDING TO EMERGENCY DEPARTMENT AT [facility] FOR IMAGING AND FURTHER TREATMENT. MEDICATIONS HAVE BEEN CHANGED TO IV FROM P.O. MUCH POSSIBLE. WILL NEED CLOSE MONITORING OF BLOOD PRESSURE HE CANNOT TAKE LISINOPRIL. WILL LIKELY NEED INSULIN METFORMIN IS DISCONTINUED. WILL NEED ATTENTION TO PAIN AND SLEEP WELL. Upper extremity weakness with a C5 palsy, more so on the left than the right due to spinal stenosis and following C3-C6 ACDF on 02/27/2018. * Initial functional independence measure is 48. He requires assist of 2 people for transfers. Moderate assist for bed mobility. Minimal assist for ambulating up to 60 ft with front wheeled walker and 2nd person following with wheelchair. Maximal assist for dressing. He continues to be limited by bilateral upper extremity weakness but has elbow flexion if not antigravity. * Continue PT and OT to optimize mobility and activities of daily living to the standby assist to contact guard assist level of function. Dysphagia due to neck surgery. * Advanced to dysphagia 2 textures, continues nectar thick liquids. * Worsening of swallow, made NPO per BENEFITS TECHNICIAN 03/09/2018. Complicated by increased phlegm production? * Arranging video fluoroscopic swallow study. * Continue treatment per Speech and Language Pathology. Hyponatremia, with sodium 132 on 03/05/2018 and 129 on 03/07/2018. May be related to dehydration and reduced volume status, along with diuretic treatment. * Improved after IV hydration and with discontinuation of triamterene/ hydrochlorothiazide. Sodium 134 on 03/08/2018, 132 on 03/09/2018. * Evaluate for SIADH with serum and urine osmolality, serum uric acid and urine random sodium. * Discontinued diuretic 03/08/2018 Hypertension. Triamterene/hydrochlorothiazide discontinued due to hyponatremia. * Continue lisinopril. Will increase dose if blood pressure becomes high. Possible CSF leak. * Seen in neurosurgery clinic, 03/07/2018, and drain site in neck was stapled closed. * Drainage appears to have resolved. * Continue cephalexin ordered by Neurosurgery. * Head of bed at 30 degrees and maintained upright as much as possible. Leukocytosis, with higher white blood cell count on 03/08/2018. Still on Decadron and may have to do with resolving pneumonia, versus process in neck related to CSF drainage and phlegm production. Continue to monitor symptomatically. No signs or symptoms of infection at present. * Procalcitonin 0.04, 03/08/2018, consistent with localized bacterial infection. Diabetes mellitus type 2. Continue metformin HELD DUE TO NPO STATUS. * Fasting glucose mildly elevated at 104 on BMP 03/03/2018. * Dexamethasone taper from 4 mg twice daily to 2 mg twice daily starting tomorrow, 03/04/2018. Will not initiate insulin. Insomnia. * Trazodone was not effective, at HS on 03/07/2018. * Trial of zolpidem 10 mg at HS 03/08/2018. * Expect improvement when dexamethasone is completed, after 03/09/2018. * He prefers to make another attempt with zolpidem tonight, 03/09/2018. He was part of the difficulty was that it tended to sleep in recliner. He will try to sleep in the bed tonight. * If zolpidem is not effective, consider addition of or replacement with quetiapine. Pain control. He does not appear to be in significant pain. Oxycodone was ordered on a q.12 basis. I have changed it to q.4 p.r.n. Continue acetaminophen as well as methocarbamol. Hypoxia due to pneumonia. He has a heart murmur, but his presentation is not otherwise consistent with congestive heart failure and BNP 03/03/2018 ruled out congestive heart failure. * EKG prior to his surgery had changes consistent with possible pulmonary disease, but otherwise showed normal sinus rhythm, also was consistent with possible left ventricular hypertrophy based on voltage criteria. * Nurse reports that he had a chest x-ray in the hospital which showed only atelectasis. Continue incentive spirometry. * Chest CT 03/03/2018 ruled out pulmonary embolus but showed right lower lobe pneumonia. Initiating levofloxacin 750 mg q.day for 5 days starting 03/03/2018. Repeat CBC in the morning to evaluate response regarding leukocytosis. * Hypoxia is resolved. Thrombocytopenia. Resolved on CBC 12/2017. Dyslipidemia. Continue atorvastatin; HELD FOR NPO STATUS. Completed Decadron taper per Neurosurgery, March 09, 2018. Prophylaxis. He is at elevated risk for DVT and he was treated with enoxaparin in the hospital. Continue enoxaparin until his mobility considerably improves. Wound care. Discussed with Surgeon, Dr. Yeboah. Skin was closed with Dermabond. His incision should be open to air and he may shower daily. Followup. Assuming that there are no complications with wound healing, he can follow up with Dr. Yeboah after his discharge from inpatient rehabilitation. 03/09/18 13:38 Subjective: Reports poor sleep last night despite taking zolpidem. 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 Nurse reports that he was very anxious and was on the call button every 10-15 minutes staff also notes that he was unable to eat dinner last night due to increased phlegm and difficulty swallowing he coughed on all bites and sips. Objective: Vital Signs Temp Pulse Resp BP Pulse Ox 36.7 C 105 H 17 96/59 L 93 03/09/18 08:00 03/09/18 08:00 03/09/18 08:00 03/09/18 08:00 03/09/18 08:00 Laboratory Results 03/09/18 06:00 03/09/18 06:00 03/08/18 03/09/18 03/10/18 05:59 05:59 05:59 Intake Total 2121 1012 120 Output Total 1325 900 Balance 796 112 120 Physical Exam - Physical Exam General Appearance: WD/WN, alert, no apparent distress Neck: non-tender, other (Horizontal incision approximately 4-5 cm with swelling underneath incision and generalized swelling on right side of neck.) Respiratory: normal breath sounds, decreased breath sounds (Right lower and middle lobes), No respiratory distress, No accessory muscle use, No crackles, No rhonchi, No wheezing Cardiac/Chest: regular rate, rhythm, systolic murmur, No edema Skin: normal color, warm/dry, other (Incision clean dry and intact, no erythema) Neuro/Psych: alert, normal mood/affect, oriented x 3, motor weakness (Bilateral upper extremities, primarily biceps) ICD10 Worksheet Patient Problems: Problems Problem Status Onset Cervical spinal stenosis Acute S/P cervical spinal fusion Acute
--- NOTE | 2018-03-09 13:47 | PDOREHIP ---
Admission [facility] - Admission - 3 Day Assessment Period Admission Date/Day 1: 03/02/18 Day 2: 03/03/18 Day 3: 03/04/18 Discharge [facility] - Discharge - 3 Day Assessment Period 2 Days Prior to Anticipated Discharge Date: 03/25/18 1 Day Prior to Anticipated Discharge Date: 03/26/18 Anticipated Discharge Date: 03/27/18 - Discharge Skin Conditions Unhealed Pressure Ulcer (1 or more/Stage 1 or >)-Discharge: 0. No
--- NOTE | 2018-03-10 15:27 | GDS ---
[f rep st] DISCHARGE SUMMARY ADMITTING DIAGNOSIS: Cervical cord compression with myelopathy. DISCHARGE DIAGNOSIS: Cervical cord compression with myelopathy. OTHER DISCHARGE DIAGNOSES: 1. Upper extremity weakness with C5 palsy. 2. Dysphagia. 3. Hyponatremia. 4. Possible cerebrospinal fluid leak. 5. Leukocytosis. 6. Pneumonia. COMPLICATIONS: He had worsening of his phonation and swallowing functions. CONSULTATIONS: He was seen by the Neurosurgery Service, physician litigation legal assistant, Jose Juan Presley, regarding a likely CSF leak from a drain site in his neck. PROCEDURES: The drain site was stapled. HISTORY AND HOSPITAL COURSE: This patient was admitted from [facility] where he had presented on 02/23/2018, with left arm and leg weakness, as well as neck pain and right shoulder pain. These had worsened over several days to the point which he came to the hospital. MRI was obtained of his cervical spine, which showed degenerative cervical and upper thoracic spondylosis, which had progressed since 2014. There was severe C3-C4 and C4-5 spinal canal stenosis. He had focal myelopathic cord signal at C4-C5. He had moderate to severe C5-C6 and C6-C7 spinal canal stenosis and moderate C2-C3 and T2-T3 spinal canal stenosis. He was initially treated with dexamethasone 10 mg daily. He had surgery on 02/27/2018 with anterior cervical decompression and fusion from C3 to C6. He continued to have bilateral upper extremity weakness after surgery, consistent with a C5 palsy. Additionally, there was dysphagia. He was otherwise medically stable and transferred to inpatient rehabilitation. He initially made progress in rehabilitation, improving regarding mobility but continued to have significant upper extremity weakness. He was improving regarding swallowing and was on a dysphagia 2 diet with nectar thick liquids; however, on 03/08 and 03/09, he was noted to have a change in his voice, and on 03/09, he had a significant downgrade in his swallowing function. He had been treated with Levaquin for a pneumonia, which was diagnosed by CT scan the day after his admission. In terms of monitoring treatment response, he had repeat CBCs done, and white count initially declined and then increased. Several days prior to his discharge, he was seen in the Neurosurgery Clinic by LINDEN Presley for persistent fluid leak from his drain site. This was thought likely to be CSF. The drain site was stapled closed, and he was ordered to maintain head of bed at 30 degrees and be upright as much as possible in the hope that the likely CSF leak would resolve spontaneously. He was placed on cephalexin prophylactically to prevent infection. On 03/09/2018, due to his decline in swallowing function and increasingly altered phonation, he was sent to the emergency department at [facility] for CT scan of the neck and further evaluation and treatment from there. Report obtained from [facility] is that he was diagnosed with an abscess in the neck and begun on IV antibiotics. DISCHARGE PLAN: Condition is guarded. Diet is n.p.o. Activity: He requires assistance for mobility and activities of daily living. MEDICATIONS ON DISCHARGE: Medications on discharge were being transitioned to IV, including cefazolin, subcutaneous enoxaparin, sublingual ondansetron, and IV fluids. Further medication orders will be per the accepting physician at [facility]. ISSUES TO BE ADDRESSED AT FOLLOWUP: 1. Neck abscess per the hospitalist team and Neurosurgery at [facility]. 2. Dysphagia, n.p.o. when he left inpatient rehabilitation. He will have continued evaluation by Speech and Language Pathology at [facility]. 3. Dyslipidemia, hypertension, and diabetes. It is hoped that he can resume oral medications, including atorvastatin 10 mg q.h.s., lisinopril 10 mg q.h.s., and metformin 500 mg b.i.d. 4. Insomnia was a consistent problem during his rehabilitation stay. It was refractory to melatonin, trazodone, and zolpidem. Consideration was given to a trial of quetiapine. It is hoped that as his medical condition is stabilized, he will be able to sleep better. Copy requested to: Dr. Yeboah Neurosurgery /[id number]/MODL MTDD
== END 2018-03-09 15:00 | disposition short-term general hospital (02) | DRG 949 ==
LOC: BREH 15:58
PROVIDERS: ADMIT Internal Medicine; ATTEND Internal Medicine
DX: Z48.811 Encounter for surgical aftercare following surgery on the nervous system (principal); M47.12 Other spondylosis with myelopathy, cervical region; Z98.1 Arthrodesis status; R13.19 Other dysphagia; R09.02 Hypoxemia; E11.9 Type 2 diabetes mellitus without complications; Z79.84 Long term (current) use of oral hypoglycemic drugs; I10 Essential (primary) hypertension; M47.814 Spondylosis without myelopathy or radiculopathy, thoracic region; E78.5 Hyperlipidemia, unspecified; E87.1 Hypo-osmolality and hyponatremia; J18.9 Pneumonia, unspecified organism; G47.00 Insomnia, unspecified; G96.0 Cerebrospinal fluid leak
CPT/HCPCS: 92526-GN; 92610-GN; 97110-GO; 97110-GP; 97112-GO; 97112-GP; 97116-GP; 97162-GP; 97167-GO; 97530-GO; 97530-GP; 97535-GO; 97542-GP; J0690; J1650

== ENCOUNTER 2018-03-21 11:58 | Inpatient (IN) | payer OTHER ==
[2018-03-21] MEDS ORDERED: LORazepam 1 MG/0.5 ML UDSYR PO PRN (15:20)
[2018-03-21] MEDS ORDERED: CETIRIZINE 5 MG/5 ML UDL PO PRN (15:26)
[2018-03-21] MEDS ORDERED: ACETAMINOPHEN 650 MG/20.3 ML UDCUP TUBE PRN (15:27)
--- NOTE | 2018-03-21 16:22 | PDOREHIP ---
Admission [facility] - Admission - 3 Day Assessment Period Admission Date/Day 1: 03/21/18 Day 2: 03/22/18 Day 3: 03/23/18 - Active Diagnoses Comorbidities and Co-existing Conditions at Admission: 08295. None of the Above - Skin Conditions Unhealed Pressure Ulcer (1 or more/Stage 1 or >)-Admission: 0. No
--- NOTE | 2018-03-21 17:34 | GHP ---
[f rep st] HISTORY AND PHYSICAL POST ADMISSION PHYSICIAN EVALUATION AND REHABILITATION TREATMENT PLAN DATE OF ADMISSION: 03/21/2018 REFERRING FACILITY: [facility] REFERRING PHYSICIAN: Dexter Yeboah MD IMPAIRMENT GROUP: [id number]. DATE OF ONSET: 03/17/2018. CONSULTING PHYSICIANS: He was managed by the hospitalist service. REHABLITATION DIAGNOSIS: Cervical spinal stenosis, status post anterior cervical discectomy and fusion C3-C6 with a C5 bilateral palsy. ETIOLOGIC DIAGNOSIS: Other, traumatic spinal cord dysfunction. DATE OF SURGERY: 02/27/2018. HISTORY OF PRESENT ILLNESS: This patient was initially admitted on 03/02/2018 from [facility]. He had presented there with progressive left arm and leg weakness which had been ongoing since 02/07/2018. Primary care provider arranged a cervical spine x-ray which showed multiple level cervical spine stenoses. He had significant worsening and came to the hospital where an MRI of the brain showed no CVA, an MRI of the C-spine showed degenerative cervical and upper thoracic spondylosis which had progressed since 2014. There was severe C3-C4 and C4-5 spinal canal stenosis. There was focal myelopathic cord signal at C4-C5. He had moderate to severe C5-C6 and C6-C7 spinal canal stenosis, moderate C2-C3 spinal canal stenosis, and mild to moderate T2-T3 spinal canal stenosis. He was initially treated with dexamethasone, and then he had anterior cervical decompression and fusion from the C3 level to the C6 level on 02/27/2018. He continued to have bilateral upper extremity weakness consistent with a C5 palsy. He had dysphagia, but when he was discharged to rehabilitation at that time, he was on a dysphagia 1 pureed diet with nectar thick liquids. During his rehabilitation stay, he initially progressed, but then developed altered vocal tone and a decrease in his swallowing function. He had been advanced to dysphagia 2, but was made n.p.o. Due to these changes, he was sent back to [facility] where he had a CT of his neck which showed a large fluid collection. He had previously, while on rehabilitation, had copious discharge from the site of a surgical drain in his neck. He had an evaluation at the Neurosurgery Clinic were it was considered likely to be a CSF leak, and it was stapled. In the hospital, during his second hospitalization, the fluid was drained. Additionally, a lumbar drain was placed as this was thought to be CSF. Ultimately, the drain in his neck was clamped, and over 4 days, there was no re- accumulation of fluid. He had 2 esophagrams, one of which was a video fluoroscopic swallow study on 03/19/2018, and he was aspirating on all textures , so he was made n.p.o. On 03/14/2018, a Dobbhoff tube was placed, and he has been receiving nutrition and hydration via the Dobbhoff tube tube since then. He currently is without any acute complaints. He does not feel that he has had any significant improvement in his upper extremity strength. There was a rash noted today and he has been treated with hydrocortisone cream and IV Benadryl. Additionally, he received IV Valium, which had been prescribed for muscle spasms , so he is somewhat sleepy on exam today. With his n.p.o. status, a number of medications were discontinued including triamterene, hydrochlorothiazide, oxycodone, senna, methocarbamol, metformin, lisinopril, atorvastatin, and acetaminophen. LABORATORY DATA: Other studies and labs most recently during his hospitalization: CBC was overall within normal limits, but for a slightly low platelet count at 126, and a basic metabolic profile was again overall within normal limits consistent possibly with mild dehydration with an elevated BUN to creatinine ratio. The BUN was 22, and creatinine was 0.56. This morning serum sodium was 132 at 5:55 a.m., and he had a slightly low calcium at 8.3. PRECAUTIONS: He is a fall risk and an aspiration precaution. He has orthopedic spinal precautions for his neck. Active Comorbidities: He has the tier 2 comorbidity of dysphagia, otherwise there are no active tier 1, tier 2, or tier 3 comorbidities. PAST MEDICAL HISTORY: 1. Diabetes mellitus type 2. 2. Hypertension. 3. Spinal stenosis. PAST SURGICAL HISTORY: He had the C3-6 ACDF. ADMISSION MEDICATIONS: 1. Bisacodyl suppository 10 mg MD q24 h p.r.n. 2. Enoxaparin 40 mg subcutaneous daily. 3. [place] ointment p.r.n. 4. Citalopram 20 mg p.o. daily. 5. Diazepam 5 mg q.8 hours p.r.n. muscle spasm. 6. Diphenhydramine 25 mg q.6 hours p.r.n. itching. 7. Famotidine 20 mg by tube, twice daily. 8. Hydrocortisone 2.5% cream to rash on chest, four times daily. ALLERGIES: There are no known drug allergies. PSYCHOSOCIAL HISTORY: He is . He lives with his . He has a local son. There are several steps to enter the house, but once he is in his home, there are no steps. He has a history of smoking, but is currently a nonsmoker. He does not have excessive alcohol use, or use any substances of abuse. 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 REVIEW OF SYSTEMS: He is sleepy. He is aware of his difficulty swallowing. He does not think he has gained strength in the biceps or hands. He is not in pain. He is not currently itching. He does not have a cough or dyspnea. He denies nausea, vomiting, constipation, or diarrhea. He has no difficulty urinating. Otherwise, a 10-point review of systems is negative. PHYSICAL EXAM: VITAL SIGNS: Blood pressure is 106/76, heart rate is 100, respiratory rate is 16. Oxygen saturation is 94% on room air. Temperature is 36.2 degrees Celsius. His weight is 93.8 kg for a body mass index of 29.7. GENERAL: This is a well-nourished, well-developed man, lying in a hospital bed wearing a hospital smock, somewhat sleepy, but alert, cooperative, and in no acute distress. HEENT: Extraocular movements are intact. Pupils are equal, round, reactive to light. Mucous membranes are moist. Dentition is in good condition. There is an NG tube in his right naris. NECK: In a brace. There is no obvious swelling. Incision is well healed on the left anterior neck. HEART: Overall regular with occasional irregularity. There are no murmurs, rubs, or gallops. LUNGS: Clear to auscultation bilaterally. ABDOMEN: Soft, nontender, nondistended with normoactive bowel sounds. No hepatosplenomegaly. EXTREMITIES: There is no cyanosis or clubbing. Radial pulses are 2+ bilaterally. Pedal pulses are trace bilaterally. NEUROLOGIC: He is alert and oriented x3. Cranial nerves 2-12 are grossly intact, though the details of his dysphagia were not examined directly. In terms of motor strength, his hand caser shoe parts are 4/5. His shoulder shrugs are 5/5. He has no antigravity biceps strength, and minimal antigravity deltoid strength. His triceps are 4/5 bilaterally. There is no motor weakness to the lower extremities. Sensation is intact to light touch. Deep tendon reflexes are absent bilaterally at the biceps, and are 2+ bilaterally at the patellar tendons. SKIN: There is a red, macular rash, slightly raised over his chest. There is a single patch approximately 2 x 3 cm below the sternum on the right, over the thorax. CURRENT LEVEL OF FUNCTION: Per the pre-admission screen, regarding diet, feeding, and swallowing, he is n.p.o. and fed by a Dobbhoff tube. He has dysphagia with silent aspiration. He needed assistance for grooming, bathing, and toileting. He was dependent for dressing. He needed assistance for bed mobility. He could transfer with moderate assist of 2 with tactile and verbal cues, and use of a Steady Lift. Balance required minimal to moderate assist. Endurance was fair. He was not ambulated. He could self-propel a wheelchair with bilateral lower extremities with minimal assist at times approximately 80 feet. Regarding communication, he had decreased phonation. Cognition was considered to be within normal limits. There are no significant changes from the preadmission screening on today's exam. IMPRESSION: This is a 78-year-old man who had progressive upper extremity and lower extremity weakness which eventually required hospitalization. He was found to have cord myelopathy at the C5 level as well as multilevel spinal stenosis. He underwent a C3-C6 anterior cervical discectomy and fusion surgery , and postsurgically, he was left with a C5 palsy with bilateral upper extremity weakness, primarily at the biceps. He was stable postsurgically, and transferred to inpatient rehabilitation. However, after several days, he developed neck swelling and decreased phonation, and was re-hospitalized where he was found to have a large fluid collection. Initially this was thought to be an abscess, but subsequently it was considered to be due to a cerebrospinal fluid leak. He had a lumbar drain, and eventually the fluid collection resolved in his neck and did not re-accumulate. He failed a video fluoroscopic swallow study, and has been fed by Dobbhoff tube. Multiple medications were discontinued. He was otherwise medically stabilized, and appropriate for inpatient rehabilitation. His goal is to complete a rehabilitation stay, and then return home with his family and supportive services. For a safe discharge, he will need to have his diet advanced to the least restrictive diet. He will need to achieve modified independence for bed mobility, transfers, and to mobilize the wheelchair for household distances. He will likely require setup for dressing. He may require continued assistance for dressing and bathing, and he will be medically stable regarding blood pressure management and diabetes mellitus. He will have therapy with PT, OT, and DOOR OPERATOR for 60 minutes per day per discipline on 5-7 days of the week. His expected duration of stay is 14-21 days. It is anticipated that upon discharge, he will benefit from home health services including nursing, DOOR OPERATOR, nurse's aide, social work, OT and PT. PLAN: 1. Dysphagia. Continue n.p.o. and feeding per Dobbhoff tube. Assessment and treatment per DOOR OPERATOR. 2. 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 He reports that he was told by Neurosurgery that it could be months to years for this to fully resolve. He appears to be approximately the same regarding motor strength as when he was discharged 2 weeks ago. He will have PT and OT with the goal of modified independence for bed mobility, transfers, and wheelchair mobility, and a setup and possible assistance for dressing and bathing. 3. Diabetes mellitus type 2. Unclear how to ideally manage fasting glucose. It was 132 on basic metabolic profile today. We will discuss further with dietitian as there is no liquid formulation for metformin that could be administered per tube. 4. History of hypertension, currently on no hypertensives. He was previously on lisinopril 10 mg daily. Blood pressure will be monitored and medications will be added per Dobbhoff tube if indicated. He was on this lisinopril and triamterene/hydrochlorothiazide. 5. Dyslipidemia. Resume statin when he is able to swallow. 6. Symptom management. Will not continue the diphenhydramine or the diazepam as they are both sedating and long-acting. I have ordered cetirizine liquid per tube p.r.n. itching, and have ordered lorazepam 0.5 mg per tube q.4 hours p.r.n. muscle spasm or insomnia. I have ordered acetaminophen oral liquid 650 mg per tube q.4 hours p.r.n. for pain. 7. Adjustment disorder with depressed mood. He was begun on citalopram 20 mg daily at the hospital. I have changed this to fluoxetine 20 mg per tube daily as fluoxetine is available as an oral liquid. 8. Prophylaxis. Continue enoxaparin 40 mg subcutaneous daily until his mobility considerably increases. He was on famotidine 20 mg tablet twice daily at the hospital. Will change this to lansoprazole 30 mg oral liquid per tube daily. 9. Thrombocytopenia in the hospital and possible dehydration. We will repeat a CBC and a basic metabolic profile in the morning. 10. Followup: He is to follow up with Dr. Yeboah of Neurosurgery in approximately 4 weeks. /[id number]/MODL MTDD
[2018-03-21] MEDS: HYDROCORTISONE 2.5% 30 GM CRTUBE TP SCH ×2 (18:20→22:09)
[2018-03-21] MEDS: METHYL SALICYLATE/MENTHOL OINTMENT TP PRN (18:24)
[2018-03-21] MEDS: LORazepam 1 MG/0.5 ML UDSYR TUBE PRN (22:28)
[2018-03-22] MEDS: HYDROCORTISONE 2.5% 30 GM CRTUBE TP SCH ×4 (05:17→21:58)
[2018-03-22 08:11] LABS: PLATELET COUNT 151 10^3/uL (150-400)
[2018-03-22] MEDS: FLUOXETINE 4 MG/ML 30 ML BOTTLE TUBE SCH (08:35)
[2018-03-22] MEDS: LANSOPRAZOLE SUSP 30MG/10ML UDSYR (Adult) TUBE SCH (08:37)
--- NOTE | 2018-03-22 09:19 | SOAPPROG ---
SOAP Progress Note Assessment/Plan: Assessment: Dysphagia. Continue n.p.o. and feeding per Dobbhoff tube. Assessment and treatment per PRINTED CIRCUIT BOARDS BEVELER. 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 He reports that he was told by Neurosurgery that it could be months to years for this to fully resolve. He appears to be approximately the same regarding motor strength as when he was discharged 2 weeks ago. * PT and OT with the goal of modified independence for bed mobility, transfers, and wheelchair mobility, and a setup and possible assistance for dressing and bathing. Diabetes mellitus type 2. * Unclear how to ideally manage fasting glucose while on continuous tube feeds. Check blood sugars four times daily and consider long-acting daily insulin. * Hope for transition to oral feeding soon. * Discussed with dietitian 03/22/2018. Reduced breath sounds, right lung neely. Obtained chest x-ray, read by radiologist as atelectasis versus patchy infiltrate. 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 He is not hypoxic, coughing or febrile. There is no specific treatment indicated. Continue incentive spirometry. History of hypertension, currently on no hypertensives. Blood pressure will be monitored and medications will be added per Dobbhoff tube if indicated. He was previously on lisinopril and triamterene/hydrochlorothiazide. Dyslipidemia. Resume statin when he is able to swallow. Symptom management. Cetirizine liquid per tube p.r.n. itching, and lorazepam 0.5 mg per tube q.4 hours p.r.n. muscle spasm or insomnia. Acetaminophen oral liquid 650 mg per tube q.4 hours p.r.n. for pain. Adjustment disorder with depressed mood. He was begun on citalopram 20 mg daily at the hospital. I have changed this to fluoxetine 20 mg per tube daily as fluoxetine is available as an oral liquid. Thrombocytopenia in the hospital resolved on CBC 718 2018. Prophylaxis. Continue enoxaparin 40 mg subcutaneous daily until his mobility considerably increases. He was on famotidine 20 mg tablet twice daily at the hospital. Will change this to lansoprazole 30 mg oral liquid per tube daily. Followup: He is to follow up with Dr. Yeboah of Neurosurgery in approximately 4 weeks. 03/22/18 15:40 Subjective: No complaints. Slept well. Not in pain. No cough, dyspnea, fevers, chills. Does not feel thirsty. Objective: Vital Signs Temp Pulse Resp BP Pulse Ox 36.9 C 95 16 91/58 L 91 L 03/22/18 05:22 03/22/18 05:22 03/22/18 05:22 03/22/18 05:22 03/22/18 05:22 Laboratory Results 03/22/18 06:00 03/22/18 06:00 03/21/18 03/22/18 03/23/18 05:59 05:59 05:59 Intake Total 1620 Output Total 950 Balance 670 Physical Exam - Physical Exam General Appearance: WD/WN, alert, no apparent distress Respiratory: normal breath sounds, decreased breath sounds (right thorax), No crackles, No rhonchi, No wheezing Cardiac/Chest: regular rate, rhythm, systolic murmur (LSB), No diastolic murmur Skin: normal color, warm/dry Neuro/Psych: alert, normal mood/affect, oriented x 3, motor weakness (B UE) ICD10 Worksheet Patient Problems: Problems Problem Status Onset Cervical spinal stenosis Acute S/P cervical spinal fusion Acute
[2018-03-22] MEDS: ENOXAPARIN 40 MG/0.4 ML SYR SC SCH (13:56)
[2018-03-22] MEDS: LORazepam 1 MG/0.5 ML UDSYR TUBE PRN (21:56)
[2018-03-23] MEDS: HYDROCORTISONE 2.5% 30 GM CRTUBE TP SCH ×3 (06:48→15:53)
[2018-03-23] MEDS: LANSOPRAZOLE SUSP 30MG/10ML UDSYR (Adult) TUBE SCH (08:42)
[2018-03-23] MEDS: FLUOXETINE 4 MG/ML 30 ML BOTTLE TUBE SCH (08:52)
[2018-03-23] MEDS ORDERED: D50W 25 GM/50 ML SYR IVP PRN (11:40)
[2018-03-23] MEDS: ENOXAPARIN 40 MG/0.4 ML SYR SC SCH (12:10)
[2018-03-23] MEDS: INSULIN LISPRO 100 UNIT/ML SC SCH ×2 (12:17→18:57)
--- NOTE | 2018-03-23 12:55 | SOAPPROG ---
SOAP Progress Note Assessment/Plan: Assessment: Dysphagia. Continue n.p.o. and feeding per Dobbhoff tube. Assessment and treatment per BRUSH MAKER. 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 He reports that he was told by Neurosurgery that it could be months to years for this to fully resolve. He appears to be approximately the same regarding motor strength as when he was discharged 2 weeks ago. * Beginning to show some improvement in biceps activation. * Continue PT and OT with the goal of modified independence for bed mobility, transfers, and wheelchair mobility, and a setup and possible assistance for dressing and bathing. Diabetes mellitus type 2. * Blood sugars in the 140-180 range. Will initiate insulin glargine 5 units at bedtime 03/23/2018 and continue four times daily blood sugar checks with insulin sliding scale. * Hope for transition to oral feeding soon. * Discussed with dietitian 03/22/2018. Rash, likely drug reaction. Causative drug is unclear. * Reactions to SSRIs are very rare so it seems unlikely that citalopram or fluoxetine is etiologic. * May still be a reaction to Unasyn received 03/09/2018 in the emergency department at [facility]. * Will treat symptomatically. Schedule cetirizine. Change from hydrocortisone cream to triamcinolone cream. * Mildly elevated white blood cell count on CBC 718 2017, but no eosinophilia; differential shows increased neutrophils and monocytes. Reduced breath sounds, right lung neely. Obtained chest x-ray 03/22/2018, read by radiologist as atelectasis versus patchy infiltrate. 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 He is not hypoxic, coughing or febrile. There is no specific treatment indicated. Continue incentive spirometry. History of hypertension, currently on no hypertensives. Blood pressure will be monitored and medications will be added per Dobbhoff tube if indicated. He was previously on lisinopril and triamterene/hydrochlorothiazide. Dyslipidemia. Resume statin when he is able to swallow. Symptom management. Cetirizine liquid per tube p.r.n. itching, and lorazepam 0.5 mg per tube q.4 hours p.r.n. muscle spasm or insomnia. Acetaminophen oral liquid 650 mg per tube q.4 hours p.r.n. for pain. Adjustment disorder with depressed mood. He was begun on citalopram 20 mg daily at the hospital. I have changed this to fluoxetine 20 mg per tube daily as fluoxetine is available as an oral liquid. Thrombocytopenia in the hospital resolved on CBC 03/22/2018. Prophylaxis. Continue enoxaparin 40 mg subcutaneous daily until his mobility considerably increases. He was on famotidine 20 mg tablet twice daily at the hospital. Will change this to lansoprazole 30 mg oral liquid per tube daily. Followup: He is to follow up with Dr. Yeboah of Neurosurgery in approximately 4 weeks. 03/23/18 16:03 Subjective: No complaints. Sleeping well. No cough or dyspnea. No fevers or chills. Not in pain. OT reports increasing return of biceps bilaterally. Objective: Vital Signs Temp Pulse Resp BP Pulse Ox 36.4 C 88 18 107/73 92 03/23/18 08:00 03/23/18 08:00 03/23/18 08:00 03/23/18 08:00 03/23/18 08:00 Laboratory Results 03/22/18 06:00 03/22/18 06:00 03/22/18 03/23/18 03/24/18 05:59 05:59 05:59 Intake Total 1620 1350 250 Output Total 950 900 Balance 670 450 250 Physical Exam - Physical Exam General Appearance: WD/WN, alert, no apparent distress Respiratory: normal breath sounds, decreased breath sounds (Right lower lobe), No crackles, No rhonchi, No wheezing Cardiac/Chest: regular rate, rhythm, systolic murmur, No edema, No diastolic murmur Skin: normal color, warm/dry, rash (Morbilliform macular rash covering most of chest and back. A 1/2 by 3 cm plaque on the right anterior chest has 0.5 cm area of shallow ulceration with no purulence.) Neuro/Psych: alert, normal mood/affect, oriented x 3, motor weakness (Bilateral biceps. Not yet antigravity strength but has increased biceps activation.) ICD10 Worksheet Patient Problems: Problems Problem Status Onset Cervical spinal stenosis Acute S/P cervical spinal fusion Acute
[2018-03-23] MEDS: METHYL SALICYLATE/MENTHOL OINTMENT TP PRN (19:45)
[2018-03-23] MEDS ORDERED: INSULIN GLARGINE 100 UNITS/ML UNIT SC SCH (21:00)
[2018-03-23] MEDS: TRIAMCINOLONE 0.1% 15 GM CRTUBE TP SCH (22:02)
[2018-03-23] MEDS: CETIRIZINE 5 MG/5 ML UDL TUBE SCH (22:03)
[2018-03-23] MEDS: LORazepam 1 MG/0.5 ML UDSYR TUBE PRN (22:14)
[2018-03-24] MEDS: INSULIN LISPRO 100 UNIT/ML SC SCH ×3 (07:48→17:14)
[2018-03-24] MEDS: FLUOXETINE 4 MG/ML 30 ML BOTTLE TUBE SCH (07:49)
[2018-03-24] MEDS: LANSOPRAZOLE SUSP 30MG/10ML UDSYR (Adult) TUBE SCH (08:46)
[2018-03-24] MEDS: TRIAMCINOLONE 0.1% 15 GM CRTUBE TP SCH ×3 (08:48→21:46)
[2018-03-24] MEDS: ENOXAPARIN 40 MG/0.4 ML SYR SC SCH (12:01)
--- NOTE | 2018-03-24 12:38 | SOAPPROG ---
SOAP Progress Note Assessment/Plan: Assessment: Dysphagia. Continue n.p.o. and feeding per Dobbhoff tube. * STOCKROOM ASSOCIATE has introduced ice chips. Notes motor planning deficit with swallow exercises. * Plan for repeat VFSS mid week next week. If poor prognosis for recovering of swallowing, consider placement of PEG tube. * Continue treatment per STOCKROOM ASSOCIATE. 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 He reports that he was told by Neurosurgery that it could be months to years for this to fully resolve. He appears to be approximately the same regarding motor strength as when he was discharged 2 weeks ago. * Initial functional independence measure of 30. Functional independence measure was 47 on his prior rehabilitation stay. Requires assistance of 2 for bed mobility walked 30 ft with front wheeled walker. Requires assistance to place hands on the walker and moderate assist of 2 for balance. Unable to self propel wheelchair. Total assistance for activities of daily living. Motor planning deficits noted. Beginning to show some improvement in biceps activation. * Continue PT and OT with the goal of modified independence for bed mobility, transfers, and wheelchair mobility, and a setup and possible assistance for dressing and bathing. Diabetes mellitus type 2. * Blood sugars in the 140-180 range. Initiated insulin glargine 5 units at bedtime 03/23/2018. Increase to 8 U starting 03/24/2018. Continue four times daily blood sugar checks with insulin sliding scale. * Hope for transition to oral feeding soon. Rash, likely drug reaction. Causative drug is unclear. Rash in fading on assessment 03/24/2018. * Reactions to SSRIs are very rare so it seems unlikely that citalopram or fluoxetine is etiologic. * May still be a reaction to Unasyn received 03/09/2018 in the emergency department at [facility]. * Will treat symptomatically. Schedule cetirizine. Change from hydrocortisone cream to triamcinolone cream. * Mildly elevated white blood cell count on CBC 712017, but no eosinophilia; differential shows increased neutrophils and monocytes. Reduced breath sounds, right lung neely. Obtained chest x-ray 03/22/2018, read by radiologist as atelectasis versus patchy infiltrate. 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 He is not hypoxic, coughing or febrile. There is no specific treatment indicated. Continue incentive spirometry. History of hypertension, currently on no hypertensives. Blood pressure will be monitored and medications will be added per Dobbhoff tube if indicated. He was previously on lisinopril and triamterene/hydrochlorothiazide. Dyslipidemia. Resume statin when he is able to swallow. Symptom management. Lorazepam 0.5 mg per tube q.4 hours p.r.n. muscle spasm or insomnia; using only for sleep. Acetaminophen oral liquid 650 mg per tube q.4 hours p.r.n. for pain. Adjustment disorder with depressed mood. He was begun on citalopram 20 mg daily at the hospital. I have changed this to fluoxetine 20 mg per tube daily as fluoxetine is available as an oral liquid. Thrombocytopenia in the hospital resolved on CBC 03/22/2018. Prophylaxis. Continue enoxaparin 40 mg subcutaneous daily until his mobility considerably increases. He was on famotidine 20 mg tablet twice daily at the hospital. Will change this to lansoprazole 30 mg oral liquid per tube daily. DISPOSITION: Attended staffing, 15 min. Discussed with case management, dietitian, nursing, PT, OT, STOCKROOM ASSOCIATE. Very low functioning but also certainly deconditioned after his 2 week hospitalization. Good family support. Hopes to return home to single-level mobile home with his with several stairs to enter. No discharge date set at present. Followup: He is to follow up with Dr. Yeboah of Neurosurgery in approximately 4 weeks. 03/24/18 12:23 Subjective: No complaints. Not in pain. No cough or dyspnea. Reports he sleeps about 5 hr at a time, awakens and then get back to sleep. Has frustration regarding his dysphagia and upper extremity weakness but he continues to be motivated in therapies. Objective: Vital Signs Temp Pulse Resp BP Pulse Ox 36.6 C 92 17 101/66 92 03/24/18 08:00 03/24/18 08:00 03/24/18 08:00 03/24/18 08:00 03/24/18 08:00 Laboratory Results 03/22/18 06:00 03/22/18 06:00 03/23/18 03/24/18 03/25/18 05:59 05:59 05:59 Intake Total 1350 2597 1078 Output Total 900 1050 250 Balance 450 1687 828 - Time Spent With Patient Time Spent With Patient: Greater than 35 min floor time today, including more than 50% of time in coordination of care during staffing meeting, and counseling patient. Physical Exam - Physical Exam General Appearance: WD/WN, alert, no apparent distress Respiratory: normal breath sounds, decreased breath sounds (Right lung field), No crackles, No rhonchi, No wheezing Cardiac/Chest: regular rate, rhythm, systolic murmur (Left sternal border), No edema Skin: normal color, warm/dry, rash (Morbilliform rash over trunk, fading.) Neuro/Psych: alert, normal mood/affect, oriented x 3, motor weakness (Bilateral upper extremities) ICD10 Worksheet Patient Problems: Problems Problem Status Onset Cervical spinal stenosis Acute S/P cervical spinal fusion Acute
[2018-03-24] MEDS: METHYL SALICYLATE/MENTHOL OINTMENT TP PRN (21:32)
[2018-03-24] MEDS: LORazepam 1 MG/0.5 ML UDSYR TUBE PRN (21:32)
[2018-03-24] MEDS: INSULIN GLARGINE 100 UNITS/ML UNIT SC SCH (21:33)
[2018-03-25] MEDS: LORazepam 1 MG/0.5 ML UDSYR TUBE PRN ×2 (02:41→22:04)
[2018-03-25] MEDS: INSULIN LISPRO 100 UNIT/ML SC SCH ×3 (10:11→17:25)
[2018-03-25] MEDS: FLUOXETINE 4 MG/ML 30 ML BOTTLE TUBE SCH (10:12)
[2018-03-25] MEDS: CETIRIZINE 5 MG/5 ML UDL TUBE SCH (10:13)
[2018-03-25] MEDS: LANSOPRAZOLE SUSP 30MG/10ML UDSYR (Adult) TUBE SCH (10:15)
[2018-03-25] MEDS: TRIAMCINOLONE 0.1% 15 GM CRTUBE TP SCH ×3 (10:16→22:15)
[2018-03-25] MEDS: BISACODYL 10 MG SUPP PR PRN ×2 (10:18→17:25)
[2018-03-25] MEDS ORDERED: MAGNESIUM HYDROXIDE 30 ML UDCUP PO PRN (11:23)
[2018-03-25] MEDS ORDERED: MINERAL OIL 10 ML VIAL TP ONE (11:24)
[2018-03-25] MEDS ORDERED: DOCUSATE SODIUM 100 MG CAP PO SCH (11:30)
[2018-03-25] MEDS: ENOXAPARIN 40 MG/0.4 ML SYR SC SCH (12:47)
[2018-03-25] MEDS: LACTULOSE 20 GM/30 ML UDCUP TUBE SCH (12:48)
--- NOTE | 2018-03-25 18:47 | SOAPPROG ---
SOAP Progress Note Assessment/Plan: Assessment: Dysphagia. Continue n.p.o. and feeding per Dobbhoff tube. * HOSTESS PARTY SALES REPRESENTATIVE has introduced ice chips. Notes motor planning deficit with swallow exercises. * Plan for repeat VFSS mid week next week. If poor prognosis for recovering of swallowing, consider placement of PEG tube. * Continue treatment per HOSTESS PARTY SALES REPRESENTATIVE. 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 He reports that he was told by Neurosurgery that it could be months to years for this to fully resolve. He appears to be approximately the same regarding motor strength as when he was discharged 2 weeks ago. * Initial functional independence measure of 30. Functional independence measure was 47 on his prior rehabilitation stay. Requires assistance of 2 for bed mobility walked 30 ft with front wheeled walker. Requires assistance to place hands on the walker and moderate assist of 2 for balance. Unable to self propel wheelchair. Total assistance for activities of daily living. Motor planning deficits noted. Beginning to show some improvement in biceps activation. * Continue PT and OT with the goal of modified independence for bed mobility, transfers, and wheelchair mobility, and a setup and possible assistance for dressing and bathing. Diabetes mellitus type 2. * Blood sugars in the 140-180 range. Initiated insulin glargine 5 units at bedtime 03/23/2018. Increase to 8 U starting 03/24/2018. Continue four times daily blood sugar checks with insulin sliding scale. * Hope for transition to oral feeding soon. Constipation * working of having a BM Rash, likely drug reaction. Causative drug is unclear. Rash in fading on assessment 03/24/2018. * Reactions to SSRIs are very rare so it seems unlikely that citalopram or fluoxetine is etiologic. * May still be a reaction to Unasyn received 03/09/2018 in the emergency department at [facility]. * Will treat symptomatically. Schedule cetirizine. Change from hydrocortisone cream to triamcinolone cream. * Mildly elevated white blood cell count on CBC 712017, but no eosinophilia; differential shows increased neutrophils and monocytes. Reduced breath sounds, right lung neely. Obtained chest x-ray 03/22/2018, read by radiologist as atelectasis versus patchy infiltrate. 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 He is not hypoxic, coughing or febrile. There is no specific treatment indicated. Continue incentive spirometry. History of hypertension, currently on no hypertensives. Blood pressure will be monitored and medications will be added per Dobbhoff tube if indicated. He was previously on lisinopril and triamterene/hydrochlorothiazide. Dyslipidemia. Resume statin when he is able to swallow. Symptom management. Lorazepam 0.5 mg per tube q.4 hours p.r.n. muscle spasm or insomnia; using only for sleep. Acetaminophen oral liquid 650 mg per tube q.4 hours p.r.n. for pain. Adjustment disorder with depressed mood. He was begun on citalopram 20 mg daily at the hospital. I have changed this to fluoxetine 20 mg per tube daily as fluoxetine is available as an oral liquid. Thrombocytopenia in the hospital resolved on CBC 03/22/2018. Prophylaxis. Continue enoxaparin 40 mg subcutaneous daily until his mobility considerably increases. He was on famotidine 20 mg tablet twice daily at the hospital. Will change this to lansoprazole 30 mg oral liquid per tube daily. Followup: He is to follow up with Dr. Yeboah of Neurosurgery in approximately 4 weeks. Plan: 03/25/18 18:46 Objective: Vital Signs Temp Pulse Resp BP Pulse Ox 36.7 C 117 H 17 125/93 H 93 03/25/18 08:00 03/25/18 08:00 03/25/18 08:00 03/25/18 08:00 03/25/18 08:00 Laboratory Results 03/22/18 06:00 03/22/18 06:00 03/24/18 03/25/18 03/26/18 05:59 05:59 05:59 Intake Total 2597 1890 1573 Output Total 1050 825 275 Balance 1547 1065 1298 Physical Exam - Physical Exam General Appearance: WD/WN, alert, no apparent distress Neck: supple Respiratory: lungs clear, normal breath sounds Cardiac/Chest: regular rate, rhythm Abdomen: non-tender, soft Extremities: non-tender Neuro/Psych: alert, normal mood/affect, oriented x 3 ICD10 Worksheet Patient Problems: Problems Problem Status Onset Cervical spinal stenosis Acute S/P cervical spinal fusion Acute
[2018-03-25] MEDS: METHYL SALICYLATE/MENTHOL OINTMENT TP PRN (22:04)
[2018-03-25] MEDS: INSULIN GLARGINE 100 UNITS/ML UNIT SC SCH (22:04)
[2018-03-26] MEDS: LANSOPRAZOLE SUSP 30MG/10ML UDSYR (Adult) TUBE SCH (08:15)
[2018-03-26] MEDS: CETIRIZINE 5 MG/5 ML UDL TUBE SCH (08:15)
[2018-03-26] MEDS: INSULIN LISPRO 100 UNIT/ML SC SCH ×3 (08:16→17:30)
[2018-03-26] MEDS: FLUOXETINE 4 MG/ML 30 ML BOTTLE TUBE SCH (08:16)
[2018-03-26] MEDS: LACTULOSE 20 GM/30 ML UDCUP TUBE SCH (08:17)
[2018-03-26] MEDS: TRIAMCINOLONE 0.1% 15 GM CRTUBE TP SCH ×3 (08:17→21:00)
[2018-03-26] MEDS: ENOXAPARIN 40 MG/0.4 ML SYR SC SCH (12:27)
--- NOTE | 2018-03-26 13:22 | SOAPPROG ---
SOAP Progress Note Assessment/Plan: Assessment: Dysphagia. Continue n.p.o. and feeding per Dobbhoff tube. * APPLE CHECKER has introduced ice chips. Notes motor planning deficit with swallow exercises. * Plan for repeat VFSS mid week next week. If poor prognosis for recovering of swallowing, consider placement of PEG tube. * Continue treatment per APPLE CHECKER. 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 He reports that he was told by Neurosurgery that it could be months to years for this to fully resolve. He appears to be approximately the same regarding motor strength as when he was discharged 2 weeks ago. * Initial functional independence measure of 30. Functional independence measure was 47 on his prior rehabilitation stay. Requires assistance of 2 for bed mobility walked 30 ft with front wheeled walker. Requires assistance to place hands on the walker and moderate assist of 2 for balance. Unable to self propel wheelchair. Total assistance for activities of daily living. Motor planning deficits noted. Beginning to show some improvement in biceps activation. * Continue PT and OT with the goal of modified independence for bed mobility, transfers, and wheelchair mobility, and a setup and possible assistance for dressing and bathing. Diabetes mellitus type 2. * Blood sugars in the 140-180 range. Initiated insulin glargine 5 units at bedtime 03/23/2018. Increase to 8 U starting 03/24/2018. Continue four times daily blood sugar checks with insulin sliding scale. * Hope for transition to oral feeding soon. Constipation * Seems to have had a decent BM today. Suspect some impaction with watery stool leaking around. will hold off on any more laxatives today * check a kub tomorrow if still having problems - not having pain or nausea Rash, likely drug reaction. Causative drug is unclear. Rash in fading on assessment 03/24/2018. * Reactions to SSRIs are very rare so it seems unlikely that citalopram or fluoxetine is etiologic. * May still be a reaction to Unasyn received 03/09/2018 in the emergency department at [facility]. * Will treat symptomatically. Schedule cetirizine. Change from hydrocortisone cream to triamcinolone cream. * Mildly elevated white blood cell count on CBC 712017, but no eosinophilia; differential shows increased neutrophils and monocytes. Reduced breath sounds, right lung neely. Obtained chest x-ray 03/22/2018, read by radiologist as atelectasis versus patchy infiltrate. 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 He is not hypoxic, coughing or febrile. There is no specific treatment indicated. Continue incentive spirometry. History of hypertension, currently on no hypertensives. Blood pressure will be monitored and medications will be added per Dobbhoff tube if indicated. He was previously on lisinopril and triamterene/hydrochlorothiazide. Dyslipidemia. Resume statin when he is able to swallow. Symptom management. Lorazepam 0.5 mg per tube q.4 hours p.r.n. muscle spasm or insomnia; using only for sleep. Acetaminophen oral liquid 650 mg per tube q.4 hours p.r.n. for pain. Adjustment disorder with depressed mood. He was begun on citalopram 20 mg daily at the hospital. I have changed this to fluoxetine 20 mg per tube daily as fluoxetine is available as an oral liquid. Thrombocytopenia in the hospital resolved on CBC 03/22/2018. Prophylaxis. Continue enoxaparin 40 mg subcutaneous daily until his mobility considerably increases. He was on famotidine 20 mg tablet twice daily at the hospital. Will change this to lansoprazole 30 mg oral liquid per tube daily. Followup: He is to follow up with Dr. Yeboah of Neurosurgery in approximately 4 weeks. Plan: 03/25/18 18:46 03/26/18 13:21 Subjective: had a rough night with stool leaking but no firm BM. Had a more solid BM this am and feels better. no abd pain Objective: Vital Signs Temp Pulse Resp BP Pulse Ox 36.8 C 97 15 102/69 92 03/26/18 07:28 03/26/18 07:28 03/26/18 07:28 03/26/18 07:28 03/26/18 07:28 Laboratory Results 03/22/18 06:00 03/22/18 06:00 03/25/18 03/26/18 03/27/18 05:59 05:59 05:59 Intake Total 1890 1573 Output Total 825 925 Balance 1065 648 Physical Exam - Physical Exam General Appearance: WD/WN, alert, no apparent distress Respiratory: lungs clear, normal breath sounds Cardiac/Chest: regular rate, rhythm, No edema Abdomen: non-tender, soft Neuro/Psych: alert, normal mood/affect, oriented x 3 ICD10 Worksheet Patient Problems: Problems Problem Status Onset Cervical spinal stenosis Acute S/P cervical spinal fusion Acute
[2018-03-26] MEDS: INSULIN GLARGINE 100 UNITS/ML UNIT SC SCH (20:59)
[2018-03-26] MEDS: METHYL SALICYLATE/MENTHOL OINTMENT TP PRN (21:00)
[2018-03-26] MEDS: LORazepam 1 MG/0.5 ML UDSYR TUBE PRN (21:32)
[2018-03-27] MEDS: LORazepam 1 MG/0.5 ML UDSYR TUBE PRN ×2 (01:52→23:11)
[2018-03-27] MEDS ORDERED: SENNOSIDES/DOCUSATE SODIUM TAB PO SCH (09:00)
[2018-03-27] MEDS: INSULIN LISPRO 100 UNIT/ML SC SCH ×3 (09:13→17:24)
[2018-03-27] MEDS: CETIRIZINE 5 MG/5 ML UDL TUBE SCH (09:16)
[2018-03-27] MEDS: FLUOXETINE 4 MG/ML 30 ML BOTTLE TUBE SCH (09:17)
[2018-03-27] MEDS: LANSOPRAZOLE SUSP 30MG/10ML UDSYR (Adult) TUBE SCH (09:27)
[2018-03-27] MEDS: ENOXAPARIN 40 MG/0.4 ML SYR SC SCH (12:23)
[2018-03-27] MEDS: TRIAMCINOLONE 0.1% 15 GM CRTUBE TP SCH ×3 (12:38→21:07)
--- NOTE | 2018-03-27 13:45 | SOAPPROG ---
SOAP Progress Note Assessment/Plan: 78-year-old male with cervical stenosis and C5 myelopathy status post C3 through C6 ACDF with dysphagia and bilateral C5 palsy involving the upper arm weakness. Now status post surgical complication with a fluid collection and swelling of the left side of the neck with worsen swallow function and change in voice. Today's update: Consult dietary to evaluate for bolus feedings. He has not had regular bowel movements, likely a component of neurogenic bowel. Ordering bowel program. Also ordering postvoid residuals to check for neurogenic bladder. A total of 35 min was spent on the floor in the care of the patient, the majority of which was spent counseling coordination of care regarding detection and treatment of neurogenic bowel and bladder as well as team communication. 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 Reportedly at the same regarding motor strength as when he was discharged 2 weeks prior. Initial functional independence measure of 30. Functional independence measure was 47 on his prior rehabilitation stay. Beginning to show some improvement in biceps activation. * Continue PT and OT with the goal of modified independence for bed mobility, transfers, and wheelchair mobility, and a setup and possible assistance for dressing and bathing. Dysphagia. Continue n.p.o. and feeding per Dobbhoff tube. * CAN LINE EXAMINER has introduced ice chips. Notes motor planning deficit with swallow exercises. * Plan for repeat VFSS this week. If poor prognosis for recovering of swallowing, consider placement of PEG tube. * Continue treatment per CAN LINE EXAMINER. Diabetes mellitus type 2. Initiated insulin glargine 5 units at bedtime 2017. Increase to 8 U starting 03/24/2018. * Insulin glargine at 8 units daily * Continue four times daily blood sugar checks with insulin sliding scale. * Hope for transition to oral feeding soon, plan to change to bolus tube feeding as soon as possible. Neurogenic bowel: Likely given his cervical spinal cord injury. Aggressively treated over the weekend. * Scheduled suppository daily * Bowel meds for consistency * Education * Only consider removing the scheduled bowel medications once he is having regular bowel movements and is completely cleared * Consider KUB if having difficulty controlling. Risk for neurogenic bladder: As above, he has likely neurogenic bowel. He is at high risk for neurogenic bladder. He is not having any incontinence at this time, but does not appear that postvoid residuals have been checked. * Ordering postvoid residuals, follow-up Rash, likely drug reaction. Causative drug reportedly was unclear. Rash in fading on assessment 03/24/2018. Reactions to SSRIs are very rare so it seems unlikely that citalopram or fluoxetine is etiologic. May still be a reaction to Unasyn received 03/09/2018 in the emergency department at [facility].Will treat symptomatically. Mildly elevated white blood cell count on CBC 718 2017, but no eosinophilia; differential shows increased neutrophils and monocytes. * Scheduled cetirizine. * triamcinolone cream. Elevated right hemidiaphragm: Reduced breath sounds, right lung neely. Obtained chest x-ray 03/22/2018, read by radiologist as atelectasis versus patchy infiltrate. 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 He is not hypoxic, coughing or febrile. There is no specific treatment indicated. * Continue incentive spirometry. History of hypertension, currently on no hypertensives. Blood pressure will be monitored and medications will be added per Dobbhoff tube if indicated. He was previously on lisinopril and triamterene/hydrochlorothiazide. * Monitor clinically Dyslipidemia. * Resume statin when he is able to swallow. Symptom management. * Lorazepam 0.5 mg per tube q.4 hours p.r.n. muscle spasm or insomnia; using only for sleep. * Acetaminophen oral liquid 650 mg per tube q.4 hours p.r.n. for pain. Adjustment disorder with depressed mood. No history of depression per his report. He was begun on citalopram 20 mg daily at the hospital. I have changed this to fluoxetine 20 mg per tube daily as fluoxetine is available as an oral liquid. * Continue fluoxetine 20 mg per tube daily oral liquid * Appreciate social work involvement Thrombocytopenia in the hospital resolved on CBC 03/22/2018. * Monitor clinically Prophylaxis. Continue enoxaparin 40 mg subcutaneous daily until his mobility considerably increases. He was on famotidine 20 mg tablet twice daily at the hospital. Changed to lansoprazole 30 mg oral liquid per tube daily. * Continue lansoprazole 30 mg orally liquid per tube daily Followup: He is to follow up with Dr. Yeboah of Neurosurgery in approximately 4 weeks after admission Very low functioning but also certainly deconditioned after his 2 week hospitalization. Good family support. Hopes to return home to single-level mobile home with his with several stairs to enter. His insurance is [employer] , he would need to go outside the system for most imaging. 03/27/18 13:45 03/27/18 13:46 Subjective: Chief complaint: Low mood No acute events overnight. Patient denies any new shortness of breath or chest pain, no new numbness, tingling, or weakness. The patient today notes that his mood is rather low, he feels like a lot has happened to him and he is having a hard time comprehending it. He has not yet talk with social work. I notified social work of this today. He endorses that he has not had very frequent bowel movements. He has also not had any incontinence of bladder. He feels that he is likely emptying completely. He is currently on continuous tube feedings. Notified by staff that he is not initiating care very well today. Objective: Vital Signs Temp Pulse Resp BP Pulse Ox 37.2 C 97 18 100/61 92 03/27/18 06:16 03/27/18 06:16 03/27/18 06:16 03/27/18 06:16 03/27/18 06:16 Laboratory Results 03/22/18 06:00 03/22/18 06:00 03/26/18 03/27/18 03/28/18 05:59 05:59 05:59 Intake Total 1573 3104 1361 Output Total 925 1150 150 Balance 648 1954 1211 Physical Exam - Physical Exam General Appearance: WD/WN, alert, no apparent distress EENT: No scleral icterus (R), No scleral icterus (L) Neck: other (In a [place] collar) Respiratory: lungs clear, normal breath sounds, No respiratory distress, No accessory muscle use, No rales, No rhonchi, No wheezing, No prolonged expiration , No prolonged inspiration, No retractions Cardiac/Chest: normal peripheral pulses, regular rate, rhythm, No edema Abdomen: non-tender, soft, No distended, No guarding Extremities: non-tender, No pedal edema, No calf tenderness, No swelling, No Emma's sign Neuro/Psych: alert, motor weakness (He has trace strength in his bilateral biceps and triceps, 4/5 in his finger flexors. Ankle dorsiflexion is 4/5), No normal mood/affect (Low mood and congruent affect) ICD10 Worksheet Patient Problems: Problems Problem Status Onset Cervical spinal stenosis Acute S/P cervical spinal fusion Acute
[2018-03-27] MEDS: BISACODYL 10 MG SUPP PR SCH (17:44)
[2018-03-27] MEDS: SENNOSIDES 17.6 MG/10 ML UDL TUBE SCH (21:07)
[2018-03-27] MEDS ORDERED: PANCREASE FOR DOBHOFF 50 ML BTL TUBE ONE (22:30)
[2018-03-27] MEDS: INSULIN GLARGINE 100 UNITS/ML UNIT SC SCH (23:11)
[2018-03-28] MEDS: LORazepam 1 MG/0.5 ML UDSYR TUBE PRN ×2 (03:08→20:06)
[2018-03-28] MEDS ORDERED: PANCREASE FOR DOBHOFF 50 ML BTL TUBE PRN (08:05)
[2018-03-28] MEDS: INSULIN LISPRO 100 UNIT/ML SC SCH ×3 (08:26→18:02)
[2018-03-28] MEDS: FLUOXETINE 4 MG/ML 30 ML BOTTLE TUBE SCH (08:28)
[2018-03-28] MEDS: LANSOPRAZOLE SUSP 30MG/10ML UDSYR (Adult) TUBE SCH (08:29)
[2018-03-28] MEDS: SENNOSIDES 17.6 MG/10 ML UDL TUBE SCH ×2 (08:29→20:05)
[2018-03-28] MEDS: CETIRIZINE 5 MG/5 ML UDL TUBE SCH (08:29)
[2018-03-28] MEDS: TRIAMCINOLONE 0.1% 15 GM CRTUBE TP SCH ×3 (08:30→20:07)
--- NOTE | 2018-03-28 10:18 | SOAPPROG ---
SOAP Progress Note Assessment/Plan: 78-year-old male with cervical stenosis and C5 myelopathy status post C3 through C6 ACDF with dysphagia and bilateral C5 palsy involving the upper arm weakness. Now status post surgical complication with a fluid collection and swelling of the left side of the neck with worsen swallow function and change in voice. Today's update: Refused some bowel medications including the regular suppository, counseled him on the importance of regular bowel movements in the ring of possible neurogenic bowel. Continue plan to monitor for neurogenic bowel and bladder, follow-up on postvoid residuals. Glucose control has been fairly good, still hoping to transfer over to bolus feeds. Plan to discuss with team today. Test for varicella zoster still pending. Overnight, he did have a clogged Dobhoff, plan to address the need for VFSS with speech therapy and plan to order this week. A total of 35 min was spent on the floor in the care of the patient, the majority of which was spent in counseling coordination of care regarding neurogenic bowel and bladder as well as discussion with family. 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 Reportedly at the same regarding motor strength as when he was discharged 2 weeks prior. Initial functional independence measure of 30. Functional independence measure was 47 on his prior rehabilitation stay. Beginning to show some improvement in biceps activation. * Continue PT and OT with the goal of modified independence for bed mobility, transfers, and wheelchair mobility, and a setup and possible assistance for dressing and bathing. Dysphagia. Continue n.p.o. and feeding per Dobbhoff tube. * MULTIPLE SLIDE OPERATOR has introduced ice chips. Notes motor planning deficit with swallow exercises. * Plan for repeat VFSS this week. Consider placement of PEG tube given outcome * Continue treatment per MULTIPLE SLIDE OPERATOR. Diabetes mellitus type 2. Initiated insulin glargine 5 units at bedtime 2017. Increase to 8 U starting 03/24/2018. * Insulin glargine at 8 units daily * Continue four times daily blood sugar checks with insulin sliding scale. * Hope for transition to oral feeding soon, plan to change to bolus tube feeding as soon as possible. Neurogenic bowel: Likely given his cervical spinal cord injury. Aggressively treated over the weekend. * Scheduled suppository daily * Bowel meds for consistency * Education * Only consider removing the scheduled bowel medications once he is having regular bowel movements and is completely cleared * Consider KUB if having difficulty controlling. Risk for neurogenic bladder: As above, he has likely neurogenic bowel. He is at high risk for neurogenic bladder. He is not having any incontinence at this time, but does not appear that postvoid residuals have been checked. * Follow-up on postvoid residuals Rash, likely drug reaction. Causative drug reportedly was unclear. Rash in fading on assessment 03/24/2018. Reactions to SSRIs are very rare so it seems unlikely that citalopram or fluoxetine is etiologic. May still be a reaction to Unasyn received 03/09/2018 in the emergency department at [facility].Will treat symptomatically. Mildly elevated white blood cell count on CBC 712017, but no eosinophilia; differential shows increased neutrophils and monocytes. * Scheduled cetirizine. * triamcinolone cream. Elevated right hemidiaphragm: Reduced breath sounds, right lung neely. Obtained chest x-ray 03/22/2018, read by radiologist as atelectasis versus patchy infiltrate. 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 He is not hypoxic, coughing or febrile. There is no specific treatment indicated. * Continue incentive spirometry. History of hypertension, currently on no hypertensives. Blood pressure will be monitored and medications will be added per Dobbhoff tube if indicated. He was previously on lisinopril and triamterene/hydrochlorothiazide. * Monitor clinically Dyslipidemia. * Resume statin when he is able to swallow. Symptom management. * Lorazepam 0.5 mg per tube q.4 hours p.r.n. muscle spasm or insomnia; using only for sleep. * Acetaminophen oral liquid 650 mg per tube q.4 hours p.r.n. for pain. Adjustment disorder with depressed mood. No history of depression per his report. He was begun on citalopram 20 mg daily at the hospital. I have changed this to fluoxetine 20 mg per tube daily as fluoxetine is available as an oral liquid. * Continue fluoxetine 20 mg per tube daily oral liquid * Appreciate social work involvement Thrombocytopenia in the hospital resolved on CBC 03/22/2018. * Monitor clinically Prophylaxis. Continue enoxaparin 40 mg subcutaneous daily until his mobility considerably increases. He was on famotidine 20 mg tablet twice daily at the hospital. Changed to lansoprazole 30 mg oral liquid per tube daily. * Continue lansoprazole 30 mg orally liquid per tube daily Followup: He is to follow up with Dr. Yeboah of Neurosurgery in approximately 4 weeks after admission Very low functioning but also certainly deconditioned after his 2 week hospitalization. Good family support. Hopes to return home to single-level mobile home with his with several stairs to enter. His insurance is [employer] , he would need to go outside the system for most imaging. 03/27/18 13:45 03/27/18 13:46 03/28/18 10:13 Subjective: Chief complaint: Neurogenic bowel and bladder No acute events overnight. Patient denies any new shortness of breath or chest pain, no new numbness, tingling, or weakness. Patient endorses prior bowel movement but has been refusing bowel meds. Counseled him on the importance of participation in this aspect of his care given possibility of neurogenic bowel. He requested that I also talked with his family today. Denies any nausea, tolerating insulin injections well. Objective: Vital Signs Temp Pulse Resp BP Pulse Ox 36.7 C 84 15 94/61 L 92 03/28/18 06:49 03/28/18 06:49 03/28/18 06:49 03/28/18 06:49 03/28/18 06:49 Laboratory Results 03/22/18 06:00 03/22/18 06:00 03/27/18 03/28/18 03/29/18 05:59 05:59 05:59 Intake Total 3104 2779 Output Total 1150 1550 150 Balance 1954 1229 -150 Physical Exam - Physical Exam General Appearance: WD/WN, alert, no apparent distress EENT: other (Dobhoff tube in the right nostril no surrounding erythema), No scleral icterus (R), No scleral icterus (L) Neck: other (C-collar in place) Respiratory: No respiratory distress, No accessory muscle use Cardiac/Chest: normal peripheral pulses, regular rate, rhythm, No edema Skin: Zoster-like rash (Anterior aspect of the thorax on the right, inferior aspect of the chest), other Extremities: non-tender, No pedal edema, No calf tenderness, No swelling Neuro/Psych: alert, normal mood/affect, motor weakness (Proximal greater than distal upper limb weakness) ICD10 Worksheet Patient Problems: Problems Problem Status Onset Cervical spinal stenosis Acute S/P cervical spinal fusion Acute
[2018-03-28] MEDS: ENOXAPARIN 40 MG/0.4 ML SYR SC SCH (13:05)
[2018-03-28] MEDS: ACYCLOVIR 200 MG/5 ML 60 ML BTL PO SCH ×2 (15:14→20:06)
[2018-03-28] MEDS: BISACODYL 10 MG SUPP PR SCH (18:02)
[2018-03-28] MEDS: INSULIN GLARGINE 100 UNITS/ML UNIT SC SCH (20:59)
[2018-03-28] MEDS ORDERED: traZODone 50 MG TAB PO SCH ×2 (21:00→22:18)
[2018-03-29] MEDS: INSULIN LISPRO 100 UNIT/ML SC SCH ×3 (09:28→17:36)
[2018-03-29] MEDS: TRIAMCINOLONE 0.1% 15 GM CRTUBE TP SCH ×2 (09:30→17:35)
[2018-03-29] MEDS: ENOXAPARIN 40 MG/0.4 ML SYR SC SCH (12:08)
[2018-03-29] MEDS ORDERED: traZODone 50 MG TAB TUBE SCH (12:12)
--- NOTE | 2018-03-29 13:37 | SOAPPROG ---
SOAP Progress Note Assessment/Plan: 78-year-old male with cervical stenosis and C5 myelopathy status post C3 through C6 ACDF with dysphagia and bilateral C5 palsy involving the upper arm weakness. Now status post surgical complication with a fluid collection and swelling of the left side of the neck with worsen swallow function and change in voice. Today's update: Incontinent bowel movements over the past 24 hr, was not given a suppository last night. Counseled staff and patient and family on importance of a regular bowel program to establish continence. Additionally, video fluoroscopic swallow study is not scheduled until next Tuesday through . Patient currently has a Dobhoff that periodically is clogging (and is currently clogged), concern about keeping it in for another week given his progress swallowing. Glucose has been in the range of 131-159. Also stopping Ativan as it may potentially promote delirium, or cause paradoxical agitation. Goal to on clock feeding tube today, switch medications and hydration to IV if unable to. 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 Reportedly at the same regarding motor strength as when he was discharged 2 weeks prior. Initial functional independence measure of 30. Functional independence measure was 47 on his prior rehabilitation stay. Beginning to show some improvement in biceps activation. * Continue PT and OT with the goal of modified independence for bed mobility, transfers, and wheelchair mobility, and a setup and possible assistance for dressing and bathing. Dysphagia. Continue n.p.o. and feeding per Dobbhoff tube. Dobhoff tube is complicated by frequent clogging. * FACTORY CLERK has introduced ice chips. Notes motor planning deficit with swallow exercises. * Plan for repeat VFSS this week. Consider placement of PEG tube given outcome * Continue treatment per FACTORY CLERK. * Advocating for earlier video fluoroscopic swallow study. Not available until next Tuesday. * Replacement Dobhoff would need to be done at [facility] Diabetes mellitus type 2. Initiated insulin glargine 5 units at bedtime 2017. Increase to 8 U starting 03/24/2018. * Insulin glargine at 8 units daily * Continue four times daily blood sugar checks with insulin sliding scale. * Hope for transition to oral feeding soon, plan to change to bolus tube feeding as soon as possible. * Switch to bolus feeding when feeding tube is in stomach, not able to at this point because it is in the small bowel Neurogenic bowel: Likely given his cervical spinal cord injury. Reinforcing education about neurogenic bowel and need for regular scheduled bowel movements. * Scheduled suppository daily * Bowel meds for consistency * Education * Only consider removing the scheduled bowel medications once he is having regular bowel movements and is completely cleared * Consider KUB if having difficulty controlling. Risk for neurogenic bladder: As above, he has likely neurogenic bowel. He is at high risk for neurogenic bladder. He is not having any incontinence at this time, but does not appear that postvoid residuals have been checked. * Follow-up on postvoid residuals Rash, likely drug reaction. Causative drug reportedly was unclear. Rash in fading on assessment 03/24/2018. Reactions to SSRIs are very rare so it seems unlikely that citalopram or fluoxetine is etiologic. May still be a reaction to Unasyn received 03/09/2018 in the emergency department at [facility].Will treat symptomatically. Mildly elevated white blood cell count on CBC 718 2017, but no eosinophilia; differential shows increased neutrophils and monocytes. * Scheduled cetirizine. * triamcinolone cream. 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 Erythematous base with overlying vesicles. HSV 1 PCR positive, negative for VZV or HSV type 1. No history of HSV as far as he knows. * Acyclovir 7-10 days, monitor Elevated right hemidiaphragm: Reduced breath sounds, right lung neely. Obtained chest x-ray 03/22/2018, read by radiologist as atelectasis versus patchy infiltrate. 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 He is not hypoxic, coughing or febrile. There is no specific treatment indicated. * Continue incentive spirometry. History of hypertension, currently on no hypertensives. Blood pressure will be monitored and medications will be added per Dobbhoff tube if indicated. He was previously on lisinopril and triamterene/hydrochlorothiazide. * Monitor clinically Dyslipidemia. * Resume statin when he is able to swallow. Insomnia: Can be quite severe. * Ativan as it may contribute to agitation or delirium * Trazodone low-dose for sleep initiation Pain * Acetaminophen oral liquid 650 mg per tube q.4 hours p.r.n. for pain. Adjustment disorder with depressed mood. No history of depression per his report. He was begun on citalopram 20 mg daily at the hospital. I have changed this to fluoxetine 20 mg per tube daily as fluoxetine is available as an oral liquid. * Continue fluoxetine 20 mg per tube daily oral liquid * Appreciate social work involvement Thrombocytopenia in the hospital resolved on CBC 03/22/2018. * Monitor clinically Prophylaxis. Continue enoxaparin 40 mg subcutaneous daily until his mobility considerably increases. He was on famotidine 20 mg tablet twice daily at the hospital. Changed to lansoprazole 30 mg oral liquid per tube daily. * Continue lansoprazole 30 mg orally liquid per tube daily Followup: He is to follow up with Dr. Yeboah of Neurosurgery in approximately 4 weeks after admission Very low functioning but also certainly deconditioned after his 2 week hospitalization. Good family support. Hopes to return home to single-level mobile home with his with several stairs to enter. His insurance is [employer] , he would need to go outside the system for most imaging. 03/27/18 13:45 03/27/18 13:46 03/28/18 10:13 03/29/18 13:32 03/29/18 13:53 03/29/18 14:16 Subjective: Chief complaint: Poor sleep and bowel incontinence No acute events overnight. Patient denies any new shortness of breath or chest pain, no new numbness, tingling, or weakness. Patient endorses continued poor sleep, was quite awake last night. Received extra dose of trazodone. Also had some bowel incontinence. Did not receive suppository last night, had spontaneous bowel movements. Did not appear that they were well controlled. Video fluoroscopic swallow study scheduled for next Tuesday with speech therapy , at [facility]. Objective: Vital Signs Temp Pulse Resp BP Pulse Ox 36.5 C 95 18 112/58 L 95 03/29/18 08:00 03/29/18 08:00 03/29/18 08:00 03/29/18 08:00 03/29/18 08:00 Microbiology 03/27/18 15:50 Herpes Simplex Virus I (PCR) - Final Dermal - Chest Hsv-1 Dna Detected Herpes Simplex Virus II (PCR) - Final Hsv-2 Dna Not Detected Varicella-Zoster Group DNA (PCR) - Final Vzv Dna Not Detected - Final Laboratory Results 03/22/18 06:00 03/22/18 06:00 03/28/18 03/29/18 03/30/18 05:59 05:59 05:59 Intake Total 2779 Output Total 1033 9956 Balance 1229 -1575 Physical Exam - Physical Exam General Appearance: WD/WN, alert, no apparent distress EENT: other (Dobhoff feeding to in right nostril, not attached to feeding at this time), No scleral icterus (R), No scleral icterus (L) Respiratory: lungs clear, normal breath sounds, No respiratory distress, No accessory muscle use, No decreased breath sounds Cardiac/Chest: normal peripheral pulses, regular rate, rhythm, No edema Abdomen: non-tender, soft, No distended Skin: normal color, warm/dry, No cyanosis, No diaphoresis Extremities: non-tender, No pedal edema, No calf tenderness, No swelling Neuro/Psych: alert, other (Significant proximal greater than distal upper arm weakness.), No normal mood/affect (Low mood and depressed affect) ICD10 Worksheet Patient Problems: Problems Problem Status Onset Cervical spinal stenosis Acute S/P cervical spinal fusion Acute
[2018-03-29 16:52] VITALS: BP 98/65
--- NOTE | 2018-03-29 17:00 | PDDCSUM ---
Discharge Summary Discharge Summary: Name: Rashel Barnes Admission date: 03/21/2018 Discharge date: 03/29/2018 Discharging physician: Cruz Powell MD Admitting diagnosis: 4.130, cervical spinal stenosis post decompression Discharge diagnosis: Same Comorbid diagnoses: Impairments in mobility and self-care, dysphagia, diabetes mellitus type 2, neurogenic bowel, neurogenic bladder, rash, HSV 1 skin lesion, elevated right hemidiaphragm, hypertension, dyslipidemia, insomnia, adjustment disorder with depressed mood, thrombocytopenia Consultations: physical therapy, occupational therapy, speech language pathology , social work, dietary Procedures: Chest x-ray 03/22/2018 with patchy right lower lobe atelectasis/ infiltrate, small-bowel feeding tube Reason for admission: Please see the full history and physical by Dr. Issa Cisse dated 03/21/2018 for full details. Briefly, the patient was admitted to [facility] on 03/02/2018 with progressive left arm and leg weakness since 2017. He had severe C3-C4 and C4-C5 spinal canal stenosis with focal cord changes at C4-5, treated with dexamethasone, then decompressed and fused from the C3 to the C6 level on 02/27/2018 with bilateral upper extremity weakness in a central cord distribution. He had some dysphagia and was admitted to inpatient rehabilitation. He developed change in his voice and worsening swallow function on inpatient rehabilitation and was found to have a surgical complication including a large fluid collection and was readmitted to [facility] for further care. This was surgically managed. He had worsened dysphagia and a Dobhoff was placed on 03/14/2018 for nutrition and hydration during his rehabilitation course. He has had that tube since that time. Rehabilitation course: On inpatient rehabilitation, he has had improving dysphagia, also some improvements in his motor function. He is awaiting swallow study to determine whether not he has progressed to the point of removing the Dobhoff, continuing Dobhoff for temporary. Time, or necessitating a placement of PEG tube. Diabetes mellitus has mostly been managed with insulin glargine at 80 units daily and sliding scale insulin, goal to wean off once he goes to bolus feedings. He has had continuous tube feedings to this point. He likely has neurogenic bowel and is requiring a daily suppository and schedule medicate. He is at risk for neurogenic bladder but so far had low postvoid residuals. He also had a rash that was felt to be a drug reaction and was scheduled on cetirizine and triamcinolone cream. Thought that it may be related to Unasyn received at [facility] but unclear. He had an HSV 1 a skin lesion diagnosed on inpatient rehabilitation and was started on acyclovir three times daily for total of 7-10 days, started 03/28. He missed a couple of doses on the day of discharge. He was started on fluoxetine for adjustment disorder. Continued on enoxaparin for prophylaxis. Discharge plan: To [facility] for replacement of Dobhoff and possible video fluoroscopic swallow study to determine next steps Condition: Requiring assistance in mobility and self-care Medications at discharge: Acetaminophen 650 mg by tube every 4 hr as needed Acyclovir 400 mg orally 3 times daily Dextrose 50% syringe as needed Fluoxetine 20 mg by tube daily Triamcinolone cream topical 3 times daily Insulin glargine 8 units subcutaneous at bedtime Insulin lispro sliding scale Lansoprazole 30 mg by tube daily Lipase/protease/amylase 50 mL tube as needed for tube obstruction Cetirizine 10 mg orally daily Trazodone 25-50 mg by tube at bedtime as needed for insomnia Enoxaparin 40 mg subcutaneous daily Sidney-Pisano topical as needed for pain Bisacodyl suppository 10 mg rectal daily He is taking promote high-fiber tube feedings continuously, 85 mL/hour with 100 mL flushes every 2 hr Pending studies: None Issues to be addressed at follow-up: Dobhoff replacement and swallow study as determined above Follow up: Plan to transfer back to inpatient rehabilitation. Ultimately, he will need follow up with Dr. Yeboah of neurosurgery in mid April Please see Daily note on the same date of service by this author for further details and physical examination
[2018-03-29] MEDS: ACYCLOVIR 200 MG/5 ML 60 ML BTL PO SCH ×2 (17:34→17:35)
[2018-03-29] MEDS: FLUOXETINE 4 MG/ML 30 ML BOTTLE TUBE SCH (17:34)
[2018-03-29] MEDS: LANSOPRAZOLE SUSP 30MG/10ML UDSYR (Adult) TUBE SCH (17:35)
[2018-03-29] MEDS: SENNOSIDES 17.6 MG/10 ML UDL TUBE SCH (17:35)
[2018-03-29] MEDS: CETIRIZINE 5 MG/5 ML UDL TUBE SCH (17:35)
--- NOTE | 2018-03-29 17:59 | PDOREHIP ---
Admission [facility] - Admission - 3 Day Assessment Period Admission Date/Day 1: 03/21/18 Day 2: 03/22/18 Day 3: 03/23/18 Discharge [facility] - Discharge - 3 Day Assessment Period 2 Days Prior to Anticipated Discharge Date: 04/25/18 1 Day Prior to Anticipated Discharge Date: 04/26/18 Anticipated Discharge Date: 04/27/18 - Discharge Skin Conditions Unhealed Pressure Ulcer (1 or more/Stage 1 or >)-Discharge: 0. No
[2018-03-29] MEDS ORDERED: traZODone 50 MG TAB PO ONE (22:14)
== END 2018-03-29 18:06 | disposition short-term general hospital (02) | DRG 552 ==
LOC: BREH 13:59
PROVIDERS: ADMIT Internal Medicine; ATTEND Internal Medicine
PROC: F0636ZZ Communicative/Cognitive Integration Skills Treatment of Neurological System - Whole Body (ICD-10-PCS; principal; 2018-03-21)
PROC: F07M3ZZ Motor Function Treatment of Musculoskeletal System - Whole Body (ICD-10-PCS; principal; 2018-03-21)
PROC: F08Z7ZZ Vocational Activities and Functional Community or Work Reintegration Skills Treatment (ICD-10-PCS; principal; 2018-03-21)
DX: M47.12 Other spondylosis with myelopathy, cervical region (principal); R13.19 Other dysphagia; Z98.1 Arthrodesis status; Z48.811 Encounter for surgical aftercare following surgery on the nervous system; M47.814 Spondylosis without myelopathy or radiculopathy, thoracic region; E11.9 Type 2 diabetes mellitus without complications; I10 Essential (primary) hypertension; E78.5 Hyperlipidemia, unspecified; R21 Rash and other nonspecific skin eruption; M62.830 Muscle spasm of back; G47.00 Insomnia, unspecified; F43.21 Adjustment disorder with depressed mood; Z79.84 Long term (current) use of oral hypoglycemic drugs; K59.2 Neurogenic bowel, not elsewhere classified; N31.9 Neuromuscular dysfunction of bladder, unspecified; B00.9 Herpesviral infection, unspecified
CPT/HCPCS: 87529-90; 87798-90; 92526-GN; 92610-GN; 97110-GO; 97112-GP; 97116-GP; 97162-GP; 97167-GO; 97530-GO; 97530-GP; 97535-GO; J1650; J1815

== ENCOUNTER 2018-04-02 12:38 | Inpatient (IN) | payer OTHER ==
[2018-04-02] MEDS ORDERED: HYDROMORPHONE HCL 2 MG PO PRN (14:06)
[2018-04-02] MEDS ORDERED: MAGNESIUM HYDROXIDE 30 ML UDCUP PO PRN (14:06)
[2018-04-02] MEDS ORDERED: TRIAMCINOLONE 0.1% 15 GM CRTUBE TP PRN (14:06)
[2018-04-02] MEDS ORDERED: PANCREASE FOR DOBHOFF 50 ML BTL TUBE PRN (14:06)
[2018-04-02] MEDS ORDERED: LORazepam 1 MG/0.5 ML UDSYR PO PRN (14:06)
[2018-04-02] MEDS ORDERED: BISACODYL 10 MG SUPP PR PRN (14:06)
[2018-04-02] MEDS ORDERED: D50W 25 GM/50 ML SYR IVP PRN (14:34)
[2018-04-02] MEDS: ACETAMINOPHEN 650 MG/20.3 ML UDCUP TUBE PRN (14:47)
[2018-04-02] MEDS ORDERED: morphINE 10 MG/0.5 ML UDSYR TUBE PRN ×2 (15:05→15:45)
--- NOTE | 2018-04-02 15:39 | GHP ---
[f rep st] HISTORY AND PHYSICAL DATE OF ADMISSION: 04/02/2018 TIME OF EVALUATION: 2:18 p.m. REFERRING FACILITY: [facility]. REFERRING PHYSICIAN: IMPAIRMENT GROUP: 4.130, other nontraumatic spinal cord dysfunction. DATE OF ONSET: 02/23/2018. REHABILITATION DIAGNOSES: Debility with bilateral upper extremity weakness due to spinal stenosis, s tatus post C3 to C6 anterior cervical diskectomy and fusion; dysphagia, status post percutaneous endo scopic gastrostomy tube placement 03/31. ETIOLOGIC DIAGNOSES: Other nontraumatic spinal cord dysfunction; dysphagia. DATE OF SURGERY: 02/27/2018. HISTORY OF PRESENT ILLNESS: A 78-year-old male, who is now transferred back to [facility] inpatient rehabilitation services upon transfer from [facility] earlier today. He is a 78-year-old male, who was initially admitted from [facility] on 03/09/2018 , following C3 to C6 anterior cervical decompression and fusion on 02/27/2018. He initially presente d on 02/23/2018, to [facility] with left arm and leg weakness, as well as neck pain and right shoulder pain, which had worsened over the past several days. A cervical spine MRI showed prog ressive cervical and upper thoracic spondylosis including severe C3-4 and C4-5 spinal canal stenosis with myelopathic cord changes at C4-5, and moderate to severe C5-6 and C6-7 spinal canal stenosis. H e was initially treated with dexamethasone 10 mg daily. He underwent a C3 to C6 decompression on . His postoperative course was initially complicated by bilateral C5 nerve root palsy and dysphagi a. He was initially admitted to [facility] inpatient rehab on 03/02 with leaking of fl uid following drain removal and worsening dysphagia, and was subsequently transferred to [facility] on 03/09/2018, for further workup. The patient was noted to have sepsis, and neck CT was positive for large prevertebral fluid collection C3-4 through C6-7 with esophageal compression. Mike t hospital course included lumbar drain placement on 03/11 secondary to CSF leak, Dobbhoff placed sec ondary to aspiration. On 03/19, VFSS was positive for silent aspiration requiring continuation of Do bbhoff feeding. He was subsequently [facility] 03/30. By review of the electronic medical records, I did not see a discharge summary pertaining to that visit. He was readmitted to [facility] on 03/29 for furth er intervention. The Dobbhoff tube was removed. VFSS swallow assessment was repeated, with the jenae ent showing continued dysphagia requiring PEG tube placement, which was performed on 03/31/2018. The patient initially was scheduled for admission to this facility on 04/01, but this was delayed becaus e they wanted to make sure that the PEG tube was functioning correctly. He is now admitted for addit ional rehabilitation. In the interim, the patient states he did not do any walking during his most recent stay at [facility]. He reports very little if any return of upper extremity motor function. He does not report a ny new onset of lower extremity weakness or sensory disturbance. He denies bowel/bladder incontinenc e. He does not report that he has trouble clearing his own secretions. STUDIES AND LABS DURING HOSPITAL STAY: Currently unavailable. PRECAUTIONS: He is a fall risk. Cervical spine precautions. He is to wear a hard collar 24 hours p er day unless Dr. Brandon clears him to remove collar for showers. Orthopedic spine precautions for ce rvical spine. ACTIVE COMORBIDITIES: Tier 2 comorbidities include dysphagia. He has diabetes mellitus type 2 witho ut clear manifestations. He does not have a tier 3 comorbidity. PAST MEDICAL HISTORY: Type 2 diabetes. Hypertension. Cervical spinal stenosis. PAST SURGICAL HISTORY: As per HPI, otherwise noncontributory. PRE HOSPITAL MEDICATIONS: ASA 81 mg daily. Lisinopril 10 mg daily. Metformin 500 mg p.o. twice charly ly. ADMISSION MEDICATIONS: Lipase/amylase/pancrelipase protease 500 mL tube p.r.n. Lorazepam 0.5 mg p.o . q.6 h. p.r.n. anxiety. Magnesium hydroxide 4 mL p.o. q.4 h. p.r.n. constipation. Senexon oral liq uid 8.8 mg p.o. b.i.d. Acetaminophen 500 mg tube q.6 h. p.r.n. pain. Bisacodyl 10 mg p.r. daily p.r .n. Methyl Salicylate-Menthol, apply to painful areas p.r.n. Triamcinolone 0.1%, 1 application TP d aily p.r.n. acyclovir 400 mg p.o. t.i.d. scheduled. Insulin glargine 8 units subcu h.s. scheduled. Sennosides 8.8 mg p.o. b.i.d. scheduled. Fluoxetine 20 mg, 2 daily at 0800 hours. Cetirizine 10 mg p.o. daily. Enoxaparin 40 mg subcu daily. Lansoprazole 30 mg tube daily scheduled. ALLERGIES: NKDA. SOCIAL HISTORY: and lives with . Son lives locally. Several steps into house, but once in home has no steps. History of smoking, but currently a nonsmoker. Denies excessive alcohol use. Currently retired. FAMILY HISTORY: Noncontributory. REVIEW OF SYSTEMS: HEENT: Denies cough or difficulty swallowing. CARDIAC: Denies chest pain or pa lpitations. Denies nausea or constipation. Denies bowel incontinence. : Denies dysuria. Denies bladder incontinence. MUSCULOSKELETAL: Reports pain in the left thumb, which has started recently. NEUROLOGICAL: Denies new onset of lower extremity sensory disturbance or weakness. Reports no alicia nge in previously documented right upper extremity weakness secondary to bilateral C5 palsy. PHYSICAL EXAM: VITALS: Vital signs are pending. CONSTITUTIONAL: A WD, WN, pleasant, slightly over weight male in NAD, who appears comfortable lying in bed. Wearing a hard cervical collar. HEENT: E YASMEEN intact. PERRLA. Mucous membranes are dry. Dentition is good. CARDIOVASCULAR: Regular rate an d rhythm. Cannot appreciate previous documented systolic ejection murmur. No lower extremity edema. Negative right and left Homans test. LUNGS: Clear to auscultation bilaterally. ABDOMEN: Soft an d nontender. Hypoactive bowel sounds in all 4 quadrants. No masses. PEG tube in place. No erythem a or drainage around PEG tube site. EXTREMITIES: No cyanosis, clubbing, or edema noted. NEUROLOGIC AL: Alert and oriented x3. Cranial nerves 2 through 12 grossly intact. Grossly normal lower extrem ity motor exam. No right or left footdrop. Upper extremity motor exam: 0/5 right and left biceps, anterior and middle deltoids, internal and external shoulder rotators. 3+/5 to 4-/5 left wrist exten sors and 4/5 right wrist extensors. Hand intrinsics are somewhat weak bilaterally, more pronounced o n the left, 4/5 right and left triceps. CURRENT LEVEL OF FUNCTION: Per the preadmission screen: Bowel and bladder function to be determined . Bed mobility assistance required. Toilet transfer assistance required. Tub transfer, wheelchair, shower transfer: Mid to moderate assist. Distance walk: Fair, assistance required to be reassesse d. Wheelchair: Patient able to self-propel with minimal assist for short distances. Stairs N/A at this time. Communication: Decreased phonation. Cognition: WFL. Safety precautions: Swallow/aspi ration precautions. The patient is currently n.p.o. Fall risk. On today's exam, there are no significant changes from his preadmission screen, according to review o f the preadmission screen. IMPRESSION: A 78-year-old male status post C3 to C6 anterior cervical decompression and fusion with postsurgical complication of bilateral C5 nerve root palsy, as well as dysphagia which initially requ ired Dobbhoff feeding tube, which clotted, and is now status post percutaneous endoscopic gastrostomy tube placement. Postoperatively, he had pain control that was well established. He was noted to pr eviously have hyperglycemia due to dexamethasone. Therefore, we will continue to monitor blood sugar s and continue current insulin regimen. Percutaneous endoscopic gastrostomy tube is in site, and René somers will continue to monitor percutaneous endoscopic gastrostomy tube site for signs of infection in cluding increased drainage, erythema, and induration. He is now admitted for inpatient rehabilitation, which will include comprehensive and integrative phy sical and occupational therapy, as well as speech and language therapy to improve mobility and activi ties of daily living. Speech Therapy will continue to monitor swallowing status and will make recomm endations accordingly. There will be patient education, as well as family education regarding spinal precautions and nutrition. Family training so the patient can return home with Home Health Services . The patient will have physical, occupational, and speech and language therapy 60 minutes per day p er each discipline 5 to 7 days per week. Expected duration of stay is 14 to 17 days. It is anticipa khushi that following discharge, he will require home health services including speech and language teacher ology, occupational therapy, and physical therapy. PLAN: 1. Bilateral C5 nerve root palsy resulting in bilateral upper extremity weakness, more pronounced on the left, status post C6 ACDF on 02/27/2018. Physical and Occupational Therapy to optimize mobility in activities of daily living. 2. Dysphagia secondary to the above-described cervical spine surgery. The patient is currently n.p. o. The patient will receive all medications and nutrition through PEG tube. The patient will have e valuation and treatment per Speech and Language Pathology. He most likely require repeat VFSS during this hospitalization. 3. Risk for dehydration: We will monitor for signs of dehydration including monitoring blood chemis tries, BUN, and creatinine. First blood draw will be 04/03 in the a.m. 4. Diabetes mellitus type 2. Review of medical records and transfer medications indicates insulin g largine 8 units subcu h.s. We will confirm with nursing that this is the correct dosage. Continue t o monitor blood sugars per shift. 5. Hypertension. Continue to monitor blood pressures. Continue current blood pressure medications. 6. Pain control. Currently, does not report significant cervical spine pain. Most of his pain seem s to be coming from the PEG tube site. He was previously getting hydromorphone 2 to 4 mg over at [facility]. Continue acetaminophen per PEG tube. 7. Dyslipidemia. Continue current medications. 8. DVT prophylaxis. He has elevated risk for DVT. He is currently receiving enoxaparin 40 mg subcu daily. 9. Wound Care will continue to monitor cervical spine surgical site, as well as PEG tube insertion s ite for signs of infection including increased drainage, erythema, and induration. 10. Followup. He will have followup with Dr. Brandon following his discharge from inpatient rehab ser nishant. /[id number]/MODL
[2018-04-02] MEDS ORDERED: INSULIN LISPRO 100 UNIT/ML SC SCH (18:00)
[2018-04-02] MEDS: INSULIN LISPRO 100 UNIT/1 ML VIAL LOW SC SCH (18:08)
[2018-04-02] MEDS: ACYCLOVIR 200 MG/5 ML 60 ML BTL PO SCH ×2 (19:14→21:19)
[2018-04-02] MEDS ORDERED: INSULIN GLARGINE 100 UNITS/ML UNIT SC SCH (21:00)
[2018-04-02] MEDS: SENNOSIDES 17.6 MG/10 ML UDL PO SCH (21:17)
[2018-04-02] MEDS: INSULIN GLARGINE 100 UNITS/ML UNIT SC SCH (21:17)
[2018-04-03] MEDS: ACETAMINOPHEN 650 MG/20.3 ML UDCUP TUBE PRN ×3 (02:58→17:16)
[2018-04-03 08:01] LABS: INR 1.06 (0.83-1.16)
[2018-04-03] MEDS: LANSOPRAZOLE SUSP 30MG/10ML UDSYR (Adult) TUBE SCH (08:25)
[2018-04-03] MEDS: SENNOSIDES 17.6 MG/10 ML UDL PO SCH (08:25)
[2018-04-03] MEDS: INSULIN LISPRO 100 UNIT/1 ML VIAL LOW SC SCH ×3 (08:37→17:25)
[2018-04-03] MEDS: ACYCLOVIR 200 MG/5 ML 60 ML BTL PO SCH (08:50)
[2018-04-03] MEDS: FLUOXETINE 4 MG/ML 30 ML BOTTLE TUBE SCH (08:53)
[2018-04-03] MEDS: ENOXAPARIN 40 MG/0.4 ML SYR SC SCH (08:55)
[2018-04-03] MEDS ORDERED: CETIRIZINE 5 MG/5 ML UDL PO SCH (09:00)
--- NOTE | 2018-04-03 09:15 | SOAPPROG ---
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 Rehabilitation stay was interrupted 03/09/2018 for fluid collection in neck. Returned to rehabilitation 03/21/2018 with Dobhoff tube for feeding after failing VF SS; returned to hospital 03/29/2018 with Dobhoff tube clogged. Failed VF SS again and had PEG tube placement. Return to rehabilitation 04/02/2018. Dysphagia. Continue n.p.o. and feeding per PEG. * Continue treatment per BIOPROCESS ENGINEER. 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 He reports that he was told by Neurosurgery that it could be months to years for this to fully resolve. * Functional independence measure of 30 on 03/24/2018. Functional independence measure was 47 on his prior rehabilitation stay. Requires assistance of 2 for bed mobility; walked 30 ft with front wheeled walker. Requires assistance to place hands on the walker and moderate assist of 2 for balance. Unable to self propel wheelchair. Total assistance for activities of daily living. Motor planning deficits noted. Beginning to show some improvement in biceps activation. * Continue PT and OT with the goal of modified independence for bed mobility, transfers, and wheelchair mobility, and a setup and possible assistance for dressing and bathing. Diabetes mellitus type 2. * Blood sugars in the 140-180 range. Initiated insulin glargine 5 units at bedtime 03/23/2018. Increase to 8 U starting 03/24/2018. Continue four times daily blood sugar checks with insulin sliding scale. * Plan to transition to bolus feeding. Reduced breath sounds, right lung neely. Obtained chest x-ray 03/22/2018, read by radiologist as atelectasis versus patchy infiltrate. 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 He is not hypoxic, coughing or febrile. There is no specific treatment indicated. Continue incentive spirometry. History of hypertension, currently on no hypertensives. Blood pressure will be monitored and medications will be added per Dobbhoff tube if indicated. He was previously on lisinopril and triamterene/hydrochlorothiazide. Dyslipidemia. Resume statin when he is able to swallow. Symptom management. * Morphine per G-tube for pain and G tube site; increased from 5 mg q.4 hours to 5 mg q.3 hours p.r.n. Continue acetaminophen oral liquid 650 mg per tube q.6 hours p.r.n. * Lorazepam 0.5 mg per tube q.4 hours p.r.n. muscle spasm or insomnia; using only for sleep. * Senna oral liquid per G-tube for opiate induced constipation; increased from 8.8 mg twice daily to 17.6 mg twice daily on 04/03/2018. Adjustment disorder with depressed mood. Continue fluoxetine 20 mg per tube. History of hypertension. Currently normotensive on no medications. History of dyslipidemia. Plan to check lipid panel and consider resuming statin once swallowing resumes. Prophylaxis. Continue enoxaparin 40 mg subcutaneous daily until his mobility considerably increases. Continue lansoprazole 30 mg oral liquid per tube daily. DISPOSITION: Very low functioning but also certainly deconditioned after his hospitalizations. Good family support. Hopes to return home to single-level mobile home with his with several stairs to enter. No discharge date set at present. Followup: He is to follow up with Dr. Yeboah of Neurosurgery approximately the week of 04/17/2018.. Plan: 04/03/18 09:14 04/03/18 11:36 Subjective: Complains of pain at PEG tube insertion site. Can be worse if he stands up straight when he feels like things are being stretched. Otherwise without complaints. No cough or dyspnea, no fevers or chills. Nurse notes constipation and he required digital disimpaction today Objective: Vital Signs Temp Pulse Resp BP Pulse Ox 36.8 C 96 16 96/64 L 90 L 04/02/18 19:28 04/02/18 19:28 04/02/18 19:28 04/02/18 19:28 04/02/18 19:28 Laboratory Results 04/03/18 06:00 04/03/18 06:00 04/02/18 04/03/18 04/04/18 05:59 05:59 05:59 Intake Total 1720 Output Total 1150 Balance 570 PT 14.0 SEC (12.0-15.0) 04/03/18 06:00 INR 1.06 (0.83-1.16) 04/03/18 06:00 Physical Exam - Physical Exam General Appearance: WD/WN, alert, no apparent distress Respiratory: normal breath sounds, decreased breath sounds (Right lower lung field), No crackles, No rhonchi, No wheezing Cardiac/Chest: regular rate, rhythm, No edema, No diastolic murmur, No systolic murmur Abdomen: other (PEG site clean dry and intact) Neuro/Psych: alert, normal mood/affect, oriented x 3, motor weakness (Bilateral upper extremities) ICD10 Worksheet Patient Problems: Problems Problem Status Onset Cervical spinal stenosis Acute S/P cervical spinal fusion Acute
--- NOTE | 2018-04-03 11:33 | PDOREHIP ---
Admission [facility] - Admission - 3 Day Assessment Period Admission Date/Day 1: 04/02/18 Day 2: 04/03/18 Day 3: 04/04/18 - Active Diagnoses Comorbidities and Co-existing Conditions at Admission: 37152. DM (e.g. diabetic retinopathy, nephropathy, and neuropathy) - Skin Conditions Unhealed Pressure Ulcer (1 or more/Stage 1 or >)-Admission: 0. No
[2018-04-03] MEDS: morphINE 10 MG/0.5 ML UDSYR TUBE PRN ×3 (12:17→21:25)
[2018-04-03] MEDS: METHYL SALICYLATE/MENTHOL OINTMENT TP PRN ×3 (12:53→21:37)
[2018-04-03] MEDS ORDERED: MAGNESIUM HYDROXIDE 30 ML UDCUP TUBE PRN (16:00)
[2018-04-03] MEDS: ACYCLOVIR 200 MG/5 ML 60 ML BTL TUBE SCH ×2 (16:50→21:24)
[2018-04-03] MEDS: INSULIN GLARGINE 100 UNITS/ML UNIT SC SCH (21:07)
[2018-04-03] MEDS: LORazepam 1 MG/0.5 ML UDSYR TUBE PRN (21:07)
[2018-04-03] MEDS: SENNOSIDES 17.6 MG/10 ML UDL TUBE SCH (21:07)
[2018-04-04] MEDS: morphINE 10 MG/0.5 ML UDSYR TUBE PRN ×5 (01:23→21:28)
[2018-04-04] MEDS ORDERED: BISACODYL 10 MG SUPP PR PRN (06:00)
[2018-04-04] MEDS: ACETAMINOPHEN 650 MG/20.3 ML UDCUP TUBE PRN ×2 (07:57→17:15)
[2018-04-04] MEDS: ACYCLOVIR 200 MG/5 ML 60 ML BTL TUBE SCH ×3 (07:58→21:27)
[2018-04-04] MEDS: ENOXAPARIN 40 MG/0.4 ML SYR SC SCH (07:59)
[2018-04-04] MEDS: FLUOXETINE 4 MG/ML 30 ML BOTTLE TUBE SCH (08:01)
[2018-04-04] MEDS: LANSOPRAZOLE SUSP 30MG/10ML UDSYR (Adult) TUBE SCH (08:01)
[2018-04-04] MEDS: SENNOSIDES 17.6 MG/10 ML UDL TUBE SCH (08:02)
[2018-04-04] MEDS: INSULIN LISPRO 100 UNIT/1 ML VIAL LOW SC SCH ×3 (08:21→17:18)
[2018-04-04] MEDS ORDERED: INSULIN GLARGINE 100 UNITS/ML UNIT SC SCH (10:59)
--- NOTE | 2018-04-04 10:59 | SOAPPROG ---
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 Rehabilitation stay was interrupted 03/09/2018 for fluid collection in neck. Returned to rehabilitation 03/21/2018 with Dobhoff tube for feeding after failing VFSS; returned to hospital 03/29/2018 with Dobhoff tube clogged. Failed VFSS again and had PEG tube placement. Return to rehabilitation 04/02/2018. Dysphagia. Continue n.p.o. and feeding per PEG. * Continue treatment per SALES MGR. * Initiating e-stim. Cleared for ice chips. 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 He reports that he was told by Neurosurgery that it could be months to years for this to fully resolve. * Functional independence measure of 30 on 03/24/2018. Functional independence measure was 47 on his prior rehabilitation stay. Functional independence measure 31 on 04/04/2018. Moderate to maximal assist to get out of bed. Stated balance with standby assist. Sit to stand with moderate assist. Total assist for ADLs. OT planning assistive devices to facilitate grooming and hygiene by supporting arms to remove gravity effect on biceps. * Continue PT and OT with the goal of modified independence for bed mobility, transfers, and wheelchair mobility, and a setup and possible assistance for dressing and bathing. Diabetes mellitus type 2. * Blood sugars in the 115-162 range. Initiated insulin glargine 5 units at bedtime 03/23/2018. Increase to 8 U starting 03/24/2018. Continue four times daily blood sugar checks with insulin sliding scale. * Restart metformin 04/04/2018 at 500 mg twice daily. Was discontinued when dysphagia worsened and he had Dobhoff feeding. * Plan to transition to bolus feeding 5 times a day. Reduced breath sounds, right lung neely. Obtained chest x-ray 03/22/2018, read by radiologist as atelectasis versus patchy infiltrate. 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 He is not hypoxic, coughing or febrile. There is no specific treatment indicated. Continue incentive spirometry. History of hypertension, currently on no hypertensives. Blood pressure will be monitored and medications will be added if indicated. He was previously on lisinopril and triamterene/hydrochlorothiazide. Dyslipidemia. Add on lipid panel to blood tests from yesterday, 04/03/2018. Consider resuming statin. Symptom management. * Morphine per G-tube for pain and G tube site; increased from 5 mg q.4 hours to 5 mg q.3 hours p.r.n. Continue acetaminophen oral liquid 650 mg per tube q.6 hours p.r.n. * Lorazepam 0.5 mg per tube q.4 hours p.r.n. muscle spasm or insomnia; using only for sleep. * Senna oral liquid per G-tube for opiate induced constipation; increased from 8.8 mg twice daily to 17.6 mg twice daily on 04/03/2018. * Bisacodyl suppository scheduled q.a.m.. Adjustment disorder with depressed mood. Continue fluoxetine 20 mg per tube. Prophylaxis. Continue enoxaparin 40 mg subcutaneous daily until his mobility considerably increases. Continue lansoprazole 30 mg oral liquid per tube daily. DISPOSITION: Attended staffing, 15 min. Discussed with case management, nursing, dietitian, PT, OT, SALES MGR. Very low functioning and deconditioned after his hospitalizations. Good family support. Hopes to return home to single- level mobile home with his with several stairs to enter. Expect 4-6 week length of stay. FOLLOW-UP: With Neurosurgery, 04/12/2018. C-spine x-ray ordered for 04/11/2018 at [facility]. He should take the image on a disc with him to the appointment. Subjective: Abdominal pain at PEG site is improving though he is still using morphine as needed. No cough or dyspnea. No fevers or chills. Otherwise comfortable and without complaint. Objective: Vital Signs Temp Pulse Resp BP Pulse Ox 36.6 C 83 16 125/70 H 91 L 04/04/18 06:55 04/04/18 06:55 04/04/18 06:55 04/04/18 06:55 04/04/18 06:55 Laboratory Results 04/03/18 06:00 04/03/18 06:00 04/03/18 04/04/18 04/05/18 05:59 05:59 05:59 Intake Total 1720 1770 150 Output Total 1150 735 100 Balance 570 1035 50 PT 14.0 SEC (12.0-15.0) 04/03/18 06:00 INR 1.06 (0.83-1.16) 04/03/18 06:00 - Time Spent With Patient Time Spent With Patient: Greater than 35 min floor time today including more than 50% of time in coordination of care during staffing meeting and regarding neurosurgery follow- up, and counseling patient. Physical Exam - Physical Exam General Appearance: WD/WN, alert, no apparent distress Respiratory: normal breath sounds, No crackles, No rhonchi, No wheezing Cardiac/Chest: regular rate, rhythm, No edema Skin: normal color, warm/dry Neuro/Psych: alert, normal mood/affect, oriented x 3, motor weakness (Bilateral upper extremities.) ICD10 Worksheet Patient Problems: Problems Problem Status Onset Cervical spinal stenosis Acute S/P cervical spinal fusion Acute
[2018-04-04] MEDS ORDERED: SENNOSIDES 17.6 MG/10 ML UDL TUBE SCH (14:32)
[2018-04-04] MEDS ORDERED: SENNOSIDES 17.6 MG/10 ML UDL TUBE PRN (14:40)
[2018-04-04] MEDS: CETIRIZINE 5 MG/5 ML UDL TUBE SCH (15:44)
[2018-04-04] MEDS: METHYL SALICYLATE/MENTHOL OINTMENT TP PRN (15:48)
[2018-04-04] MEDS: metFORMIN HCL 500 MG TAB PO SCH (17:17)
[2018-04-04] MEDS: LORazepam 1 MG/0.5 ML UDSYR TUBE PRN (21:27)
[2018-04-04] MEDS: INSULIN GLARGINE 100 UNITS/ML UNIT SC SCH (22:14)
[2018-04-05] MEDS: morphINE 10 MG/0.5 ML UDSYR TUBE PRN ×5 (00:30→23:31)
[2018-04-05] MEDS: ACYCLOVIR 200 MG/5 ML 60 ML BTL TUBE SCH ×3 (09:44→20:23)
[2018-04-05] MEDS: FLUOXETINE 4 MG/ML 30 ML BOTTLE TUBE SCH (09:45)
[2018-04-05] MEDS: ENOXAPARIN 40 MG/0.4 ML SYR SC SCH (09:46)
[2018-04-05] MEDS: LANSOPRAZOLE SUSP 30MG/10ML UDSYR (Adult) TUBE SCH (09:46)
[2018-04-05] MEDS: INSULIN LISPRO 100 UNIT/1 ML VIAL LOW SC SCH ×3 (09:46→17:52)
[2018-04-05] MEDS: metFORMIN HCL 500 MG TAB PO SCH ×2 (09:46→17:52)
[2018-04-05] MEDS: traMADol 50 MG TAB TUBE PRN ×2 (11:11→18:30)
[2018-04-05] MEDS: CETIRIZINE 5 MG/5 ML UDL TUBE SCH (11:18)
--- NOTE | 2018-04-05 11:34 | SOAPPROG ---
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 Rehabilitation stay was interrupted 03/09/2018 for fluid collection in neck. Returned to rehabilitation 03/21/2018 with Dobhoff tube for feeding after failing VFSS; returned to hospital 03/29/2018 with Dobhoff tube clogged. Failed VFSS again and had PEG tube placement. Return to rehabilitation 04/02/2018. Dysphagia. Continue n.p.o. and feeding per PEG. * Continue treatment per AGRICULTURE DEPARTMENT CHAIR. * Initiating e-stim. Cleared for ice chips. 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 He reports that he was told by Neurosurgery that it could be months to years for this to fully resolve. * Functional independence measure of 30 on 03/24/2018. Functional independence measure was 47 on his prior rehabilitation stay. Functional independence measure 31 on 04/04/2018. Moderate to maximal assist to get out of bed. Stated balance with standby assist. Sit to stand with moderate assist. Total assist for ADLs. OT planning assistive devices to facilitate grooming and hygiene by supporting arms to remove gravity effect on biceps. * Continue PT and OT with the goal of modified independence for bed mobility, transfers, and wheelchair mobility, and a setup and possible assistance for dressing and bathing. Diabetes mellitus type 2. * Blood sugars in the 115-162 range. Initiated insulin glargine 5 units at bedtime 03/23/2018. Increase to 8 U starting 03/24/2018. Continue four times daily blood sugar checks with insulin sliding scale. * Restart metformin 04/04/2018 at 500 mg twice daily. Was discontinued when dysphagia worsened and he had Dobhoff feeding. * Gets bolus feeding 5 times a day. Muscle fasciculations, left medial thigh. Unclear etiology. Not bothersome to patient. Observe for resolution. No further evaluation or treatment at present. Reduced breath sounds, right lung neely. Obtained chest x-ray 03/22/2018, read by radiologist as atelectasis versus patchy infiltrate. 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 He is not hypoxic, coughing or febrile. There is no specific treatment indicated. Continue incentive spirometry. History of hypertension, currently on no hypertensives. Blood pressure will be monitored and medications will be added if indicated. He was previously on lisinopril and triamterene/hydrochlorothiazide. Dyslipidemia. Reviewed lipid panel, 04/04/2018. No indication for statin. Symptom management. * Morphine per G-tube for pain and G tube site; increased from 5 mg q.4 hours to 5 mg q.3 hours p.r.n. Continue acetaminophen oral liquid 650 mg per tube q.6 hours p.r.n. Add tramadol 50 mg q.6 hours p.r.n. May be useful as it has a longer duration of action than morphine. * Lorazepam 0.5 mg per tube q.4 hours p.r.n. muscle spasm or insomnia; using only for sleep. * Senna oral liquid per G-tube for opiate induced constipation; increased from 8.8 mg twice daily to 17.6 mg twice daily on 04/03/2018 change to 8.8 mg twice daily as needed on 04/04/2018 it due to diarrhea.. * Bisacodyl suppository scheduled q.a.m; will change to p.r.n. due to diarrhea. Adjustment disorder with depressed mood. Continue fluoxetine 20 mg per tube. Prophylaxis. Continue enoxaparin 40 mg subcutaneous daily until his mobility considerably increases. Continue lansoprazole 30 mg oral liquid per tube daily. DISPOSITION: Very low functioning and deconditioned after his hospitalizations. Good family support. Hopes to return home to single-level mobile home with his with several stairs to enter. Expect 4-6 week length of stay. FOLLOW-UP: With Neurosurgery, 04/12/2018. C-spine x-ray ordered for 04/11/2018 at [facility]. He should take the image on a disc with him to the appointment. 04/05/18 11:30 Subjective: Diarrhea is improving. Pain is better but still has pain at PEG site especially overnight. Has noticed muscle twitching in his right medial thigh. Objective: Vital Signs Temp Pulse Resp BP Pulse Ox 36.8 C 93 16 134/83 H 91 L 04/05/18 06:41 04/05/18 06:41 04/05/18 06:41 04/05/18 06:41 04/05/18 06:41 Laboratory Results 04/03/18 06:00 04/03/18 06:00 04/04/18 04/05/18 04/06/18 05:59 05:59 05:59 Intake Total 1770 2250 970 Output Total 735 775 100 Balance 1035 1475 870 PT 14.0 SEC (12.0-15.0) 04/03/18 06:00 INR 1.06 (0.83-1.16) 04/03/18 06:00 Physical Exam - Physical Exam General Appearance: WD/WN, alert, no apparent distress Respiratory: normal breath sounds, No crackles, No rhonchi, No wheezing Cardiac/Chest: regular rate, rhythm, No edema, No diastolic murmur, No systolic murmur Skin: normal color, warm/dry, other (Neck incision fully healed) Extremities: other (Fasciculations left medial upper thigh) Neuro/Psych: alert, normal mood/affect, abnormal cerebellar tests, motor weakness (Bilateral upper extremities at biceps) ICD10 Worksheet Patient Problems: Problems Problem Status Onset Cervical spinal stenosis Acute S/P cervical spinal fusion Acute
[2018-04-05] MEDS: ACETAMINOPHEN 650 MG/20.3 ML UDCUP TUBE PRN (15:08)
[2018-04-05] MEDS: INSULIN GLARGINE 100 UNITS/ML UNIT SC SCH (20:49)
[2018-04-05] MEDS: LORazepam 1 MG/0.5 ML UDSYR TUBE PRN (23:31)
[2018-04-06] MEDS: morphINE 10 MG/0.5 ML UDSYR TUBE PRN ×2 (04:57→20:54)
[2018-04-06] MEDS: BISACODYL 10 MG SUPP PR PRN (07:09)
[2018-04-06] MEDS: traMADol 50 MG TAB TUBE PRN (09:52)
[2018-04-06] MEDS: ENOXAPARIN 40 MG/0.4 ML SYR SC SCH (09:53)
[2018-04-06] MEDS: metFORMIN HCL 500 MG TAB PO SCH ×2 (09:53→18:05)
[2018-04-06] MEDS: CETIRIZINE 5 MG/5 ML UDL TUBE SCH (09:54)
[2018-04-06] MEDS: FLUOXETINE 4 MG/ML 30 ML BOTTLE TUBE SCH (09:54)
[2018-04-06] MEDS: INSULIN LISPRO 100 UNIT/1 ML VIAL LOW SC SCH ×3 (10:00→18:09)
[2018-04-06] MEDS: METHYL SALICYLATE/MENTHOL OINTMENT TP PRN ×2 (10:25→18:46)
--- NOTE | 2018-04-06 10:52 | SOAPPROG ---
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 Rehabilitation stay was interrupted 03/09/2018 for fluid collection in neck. Returned to rehabilitation 03/21/2018 with Dobhoff tube for feeding after failing VFSS; returned to hospital 03/29/2018 with Dobhoff tube clogged. Failed VFSS again and had PEG tube placement. Return to rehabilitation 04/02/2018. Dysphagia. Continue n.p.o. and feeding per PEG. * Continue treatment per COLOR SEPARATION PHOTOGRAPHER. * Initiating e-stim. Cleared for ice chips. 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 He reports that he was told by Neurosurgery that it could be months to years for this to fully resolve. * Functional independence measure of 30 on 03/24/2018. Functional independence measure was 47 on his prior rehabilitation stay. Functional independence measure 31 on 04/04/2018. Moderate to maximal assist to get out of bed. Stated balance with standby assist. Sit to stand with moderate assist. Total assist for ADLs. OT planning assistive devices to facilitate grooming and hygiene by supporting arms to remove gravity effect on biceps. * Continue PT and OT with the goal of modified independence for bed mobility, transfers, and wheelchair mobility, and a setup and possible assistance for dressing and bathing. Diabetes mellitus type 2. * Blood sugars in the 115-162 range. Initiated insulin glargine 5 units at bedtime 03/23/2018. Increase to 8 U starting 03/24/2018. Continue four times daily blood sugar checks with insulin sliding scale. * Restart metformin 04/04/2018 at 500 mg twice daily. Increased to 1000 mg twice daily starting 04/06/2018. Was discontinued when dysphagia worsened and he had Dobhoff feeding. * Gets bolus feeding 5 times a day. Question of cellulitis at PEG site. * Started cephalexin 500 mg four times daily on 04/06/2018. Continue to monitor. Dry mouth. * Opiates may contribute, as may cetirizine. * Discontinue cetirizine. Initiate Biotene mouth rinse. Symptom management. * Morphine per G-tube for pain and G tube site; increased from 5 mg q.4 hours to 5 mg q.3 hours p.r.n. Continue acetaminophen oral liquid 650 mg per tube q.6 hours p.r.n. Add tramadol 50 mg q.6 hours p.r.n. May be useful as it has a longer duration of action than morphine. * Lorazepam 0.5 mg per tube q.4 hours p.r.n. muscle spasm or insomnia; using only for sleep. * Senna oral liquid per G-tube for opiate induced constipation; increased from 8.8 mg twice daily to 17.6 mg twice daily on 04/03/2018 change to 8.8 mg twice daily as needed on 04/04/2018 it due to diarrhea.. * Bisacodyl suppository scheduled q.a.m; will change to p.r.n. due to diarrhea. Muscle fasciculations, left medial thigh. Unclear etiology. Not bothersome to patient. Observe for resolution. No further evaluation or treatment at present. 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 Symptoms are resolved. No indication to continue acyclovir; discontinued 04/06/2018. Reduced breath sounds, right lung neely. Obtained chest x-ray 03/22/2018, read by radiologist as atelectasis versus patchy infiltrate. 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 He is not hypoxic, coughing or febrile. There is no specific treatment indicated. Continue incentive spirometry. History of hypertension, currently on no hypertensives. Blood pressure will be monitored and medications will be added if indicated. He was previously on lisinopril and triamterene/hydrochlorothiazide. Dyslipidemia. Reviewed lipid panel, 04/04/2018. No indication for statin. Adjustment disorder with depressed mood. Continue fluoxetine 20 mg per tube. Prophylaxis. Continue enoxaparin 40 mg subcutaneous daily until his mobility considerably increases. Continue lansoprazole 30 mg oral liquid per tube daily. DISPOSITION: Very low functioning and deconditioned after his hospitalizations. Good family support. Hopes to return home to single-level mobile home with his with several stairs to enter. Expect 4-6 week length of stay. FOLLOW-UP: With Neurosurgery, 04/12/2018. C-spine x-ray ordered for 04/11/2018 at [facility]. He should take the image on a disc with him to the appointment. 04/05/18 11:30 04/06/18 10:52 Subjective: Complains of dry mouth. Still has pain at PEG tube site and received frequent dosing of morphine through the night. Not experiencing much return of motor function to the upper arms. Otherwise sleeping well and no complaints. Objective: Vital Signs Temp Pulse Resp BP Pulse Ox 36.8 C 98 18 132/78 H 90 L 04/06/18 07:25 04/06/18 07:25 04/06/18 07:25 04/06/18 07:25 04/06/18 07:25 Laboratory Results 04/03/18 06:00 04/03/18 06:00 04/05/18 04/06/18 04/07/18 05:59 05:59 05:59 Intake Total 2250 1910 Output Total 775 780 Balance 1475 1130 PT 14.0 SEC (12.0-15.0) 04/03/18 06:00 INR 1.06 (0.83-1.16) 04/03/18 06:00 Physical Exam - Physical Exam General Appearance: WD/WN, alert, no apparent distress Respiratory: No respiratory distress, No accessory muscle use Skin: normal color, warm/dry, other (Erythema and slight swelling around PEG site.) Extremities: other (Bilateral edema of the forearms and back of the hands.) Neuro/Psych: alert, normal mood/affect, oriented x 3, motor weakness (Bilateral biceps without antigravity strength) ICD10 Worksheet Patient Problems: Problems Problem Status Onset Cervical spinal stenosis Acute S/P cervical spinal fusion Acute
[2018-04-06] MEDS: ACYCLOVIR 200 MG/5 ML 60 ML BTL TUBE SCH (11:06)
[2018-04-06] MEDS: LANSOPRAZOLE SUSP 30MG/10ML UDSYR (Adult) TUBE SCH (11:32)
[2018-04-06] MEDS: CEPHALEXIN 250 MG/5 ML BULK BOTTLE TUBE SCH ×2 (11:32→18:05)
[2018-04-06] MEDS: BIOTENE DRY MOUTH ORAL RINSE 237 ML BTL MM PRN ×3 (11:41→21:18)
[2018-04-06] MEDS: ACETAMINOPHEN 650 MG/20.3 ML UDCUP TUBE PRN (14:32)
[2018-04-06] MEDS ORDERED: ONDANSETRON DISINTEGRATING 4 MG TAB PO PRN (14:45)
[2018-04-06] MEDS: INSULIN GLARGINE 100 UNITS/ML UNIT SC SCH (20:52)
[2018-04-06] MEDS: SENNOSIDES 17.6 MG/10 ML UDL TUBE SCH (20:53)
[2018-04-07] MEDS: CEPHALEXIN 250 MG/5 ML BULK BOTTLE TUBE SCH ×5 (00:14→23:54)
[2018-04-07] MEDS: traMADol 50 MG TAB TUBE PRN (00:23)
[2018-04-07] MEDS: morphINE 10 MG/0.5 ML UDSYR TUBE PRN ×2 (03:27→16:09)
[2018-04-07] MEDS: BIOTENE DRY MOUTH ORAL RINSE 237 ML BTL MM PRN ×3 (03:51→12:22)
[2018-04-07] MEDS: BISACODYL 10 MG SUPP PR PRN (06:40)
[2018-04-07] MEDS: ENOXAPARIN 40 MG/0.4 ML SYR SC SCH (09:00)
[2018-04-07] MEDS: FLUOXETINE 4 MG/ML 30 ML BOTTLE TUBE SCH (09:01)
[2018-04-07] MEDS: metFORMIN HCL 500 MG TAB PO SCH ×2 (09:17→18:39)
[2018-04-07] MEDS: LANSOPRAZOLE SUSP 30MG/10ML UDSYR (Adult) TUBE SCH (09:17)
[2018-04-07] MEDS: INSULIN LISPRO 100 UNIT/1 ML VIAL LOW SC SCH ×3 (09:40→18:39)
--- NOTE | 2018-04-07 09:56 | SOAPPROG ---
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 Rehabilitation stay was interrupted 03/09/2018 for fluid collection in neck. Returned to rehabilitation 03/21/2018 with Dobhoff tube for feeding after failing VFSS; returned to hospital 03/29/2018 with Dobhoff tube clogged. Failed VFSS again and had PEG tube placement. Return to rehabilitation 04/02/2018. Dysphagia. Continue n.p.o. and feeding per PEG. * Continue treatment per ASSISTIVE TECHNOLOGY SPECIALIST. * Initiating e-stim. Cleared for ice chips. 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 He reports that he was told by Neurosurgery that it could be months to years for this to fully resolve. * Functional independence measure 31 on 04/04/2018 (was 30 on 03/24/2018 before most recent hospitalization;. was 47 on first rehabilitation stay). Moderate to maximal assist to get out of bed. Stated balance with standby assist. Sit to stand with moderate assist. Total assist for ADLs. OT planning assistive devices to facilitate grooming and hygiene by supporting arms to remove gravity effect on biceps. * Continue PT and OT with the goal of modified independence for bed mobility, transfers, and wheelchair mobility, and a setup and possible assistance for dressing and bathing. Hypoxia. Labs and x-ray 04/07/2018 were unrevealing. * Sent to [facility] [place] Emergency Department 04/07/2018. Discussed with emergency department physician. Chest CT showed pulmonary emboli. Therapeutic anticoagulation initiated. Spent the night at [facility]. Diabetes mellitus type 2. * Blood sugars in the 115-162 range. Initiated insulin glargine 5 units at bedtime 03/23/2018. Increase to 8 U starting 03/24/2018. Continue four times daily blood sugar checks with insulin sliding scale. * Restart metformin 04/04/2018 at 500 mg twice daily. Increased to 1000 mg twice daily starting 04/06/2018. Was discontinued when dysphagia worsened and he had Dobhoff feeding. * Gets bolus feeding 5 times a day. Question of cellulitis at PEG site. * Started cephalexin 500 mg four times daily on 04/06/2018. * Pain is much improved 04/07/2018. * Plan to continue cephalexin total of 5 days, Dry mouth. * Opiates may contribute, as may cetirizine. * Discontinue cetirizine. Initiate Biotene mouth rinse. Symptom management. * Morphine per G-tube for pain and G tube site; increased from 5 mg q.4 hours to 5 mg q.3 hours p.r.n. Continue acetaminophen oral liquid 650 mg per tube q.6 hours p.r.n. Add tramadol 50 mg q.6 hours p.r.n. May be useful as it has a longer duration of action than morphine. * Lorazepam 0.5 mg per tube q.4 hours p.r.n. muscle spasm or insomnia; using only for sleep. * Senna oral liquid per G-tube for opiate induced constipation; increased from 8.8 mg twice daily to 17.6 mg twice daily on 04/03/2018 change to 8.8 mg twice daily as needed on 04/04/2018 it due to diarrhea.. * Bisacodyl suppository scheduled q.a.m; will change to p.r.n. due to diarrhea. Muscle fasciculations, left medial thigh. Unclear etiology. Not bothersome to patient. Observe for resolution. No further evaluation or treatment at present. 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 Symptoms are resolved. No indication to continue acyclovir; discontinued 04/06/2018. Reduced breath sounds, right lung neely. Obtained chest x-ray 03/22/2018, read by radiologist as atelectasis versus patchy infiltrate. 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 He is not hypoxic, coughing or febrile. There is no specific treatment indicated. Continue incentive spirometry. History of hypertension, currently on no hypertensives. Blood pressure will be monitored and medications will be added if indicated. He was previously on lisinopril and triamterene/hydrochlorothiazide. Dyslipidemia. Reviewed lipid panel, 04/04/2018. No indication for statin. Adjustment disorder with depressed mood. Continue fluoxetine 20 mg per tube. Prophylaxis. Continue enoxaparin 40 mg subcutaneous daily until his mobility considerably increases. Continue lansoprazole 30 mg oral liquid per tube daily. DISPOSITION: Very low functioning and deconditioned after his hospitalizations. Good family support. Hopes to return home to single-level mobile home with his with several stairs to enter. Expect 4-6 week length of stay. FOLLOW-UP: With Neurosurgery, 04/12/2018. C-spine x-ray ordered for 04/11/2018 at [facility]. He should take the image on a disc with him to the appointment. 04/07/18 09:47 04/10/18 11:17 Subjective: Had elevated gastric residuals yesterday and nausea, so tube feeding was held. Had a bowel movement yesterday and had a very small bowel movement today. Nurse noted hypoxia overnight and he has been placed on oxygen. He denies cough or dyspnea. He reports pain at PEG tube site is much improved. Objective: Vital Signs Temp Pulse Resp BP Pulse Ox 36.3 C 99 20 116/69 90 L 04/07/18 08:00 04/07/18 08:00 04/07/18 08:00 04/07/18 08:00 04/07/18 08:00 Laboratory Results 04/03/18 06:00 04/03/18 06:00 04/06/18 04/07/18 04/08/18 05:59 05:59 05:59 Intake Total 1910 1845 Output Total 780 550 Balance 1130 1295 PT 14.0 SEC (12.0-15.0) 04/03/18 06:00 INR 1.06 (0.83-1.16) 04/03/18 06:00 - Time Spent With Patient Time Spent With Patient: Greater than 35 min floor time today, including greater than 50% of time in coordination of care in discussions with [facility] emergency physician. Physical Exam - Physical Exam General Appearance: WD/WN, alert, no apparent distress Respiratory: normal breath sounds, decreased breath sounds (Right lower lobe), No crackles, No rhonchi, No wheezing Cardiac/Chest: regular rate, rhythm, No edema, No diastolic murmur, No systolic murmur Skin: normal color, warm/dry, other (Erythema and slight thick yellow drainage at PEG site.) Neuro/Psych: alert, normal mood/affect, oriented x 3 ICD10 Worksheet Patient Problems: Problems Problem Status Onset Cervical spinal stenosis Acute S/P cervical spinal fusion Acute
[2018-04-07 11:38] VITALS: BP 114/68
[2018-04-07 14:16] LABS: PLATELET COUNT 277 10^3/uL (150-400)
[2018-04-07] MEDS: INSULIN GLARGINE 100 UNITS/ML UNIT SC SCH (23:53)
[2018-04-07] MEDS: SENNOSIDES 17.6 MG/10 ML UDL TUBE SCH (23:53)
[2018-04-08] MEDS ORDERED: ENOXAPARIN 100 MG/ML SYR SC SCH (09:00)
[2018-04-08] MEDS ORDERED: ENOXAPARIN 80 MG/0.8 ML SYR SC SCH (09:00)
[2018-04-08] MEDS ORDERED: WARFARIN SODIUM 5 MG TAB TUBE SCH (16:00)
--- NOTE | 2018-04-08 16:58 | PDDCSUM ---
Discharge Summary Discharge Summary: The patient was discharged and transferred to [facility] emergency department on 0803 p.m. For acute chest pain and possible pulmonary embolism evaluation. Since a pulmonary embolism was identified and the patient's troponin level was elevated, he remained in the emergency department for observation overnight and was discharged from this unit. The plan is for readmission to the inpatient rehab unit tomorrow, 04/08, after additional emergency department workup.
--- NOTE | 2018-04-10 13:16 | PDOREHIP ---
Admission [facility] - Admission - 3 Day Assessment Period Admission Date/Day 1: 04/02/18 Day 2: 04/03/18 Day 3: 04/04/18 Discharge [facility] - Discharge - 3 Day Assessment Period 2 Days Prior to Anticipated Discharge Date: 05/03/18 1 Day Prior to Anticipated Discharge Date: 05/04/18 Anticipated Discharge Date: 05/05/18 - Discharge Skin Conditions Unhealed Pressure Ulcer (1 or more/Stage 1 or >)-Discharge: 0. No
== END 2018-04-07 17:00 | disposition short-term general hospital (02) | DRG 73 ==
LOC: BREH 12:38
PROVIDERS: ADMIT Internal Medicine; ATTEND Internal Medicine
DX: G54.2 Cervical root disorders, not elsewhere classified (principal); R13.19 Other dysphagia; E11.9 Type 2 diabetes mellitus without complications; I10 Essential (primary) hypertension; Z98.1 Arthrodesis status; Z93.1 Gastrostomy status; E78.5 Hyperlipidemia, unspecified; I26.99 Other pulmonary embolism without acute cor pulmonale
CPT/HCPCS: 92507-GN; 92523-GN; 92526-GN; 92610-GN; 97110-GO; 97112-GP; 97162-GP; 97166-GO; 97530-GO; 97530-GP; 97535-GO; J1650; J1815

== ENCOUNTER 2018-04-08 11:18 | Inpatient (IN) | payer OTHER ==
[2018-04-08] MEDS ORDERED: ACETAMINOPHEN 325 MG TAB PO PRN (13:00)
[2018-04-08] MEDS ORDERED: MAGNESIUM HYDROXIDE 30 ML UDCUP TUBE PRN (13:00)
[2018-04-08] MEDS ORDERED: POLYETHYLENE GLYCOL 3350 17 GM PKT TUBE PRN (13:00)
[2018-04-08] MEDS ORDERED: SENNOSIDES 17.6 MG/10 ML UDL TUBE PRN (13:00)
[2018-04-08] MEDS ORDERED: BISACODYL 10 MG SUPP PR PRN (13:00)
--- NOTE | 2018-04-08 14:33 | PDGENHP ---
History and Physical - Chief Complaint Acute chest pain - History of Present Illness PCP: Matias HPI: 78 yo M experiencing acute chest pain located in the left chest, characterized as sharp and originally somewhat difficult to distinguish from pain located in the upper abdomen, associated with his new PEG tube. Onset was 8 /3 AM, and duration was persistent thereafter. His pain was temporally associated w/ hypoxia and tachypnea, and he was discharged from [facility] 8/3 PM to [facility] ED, where he underwent CTA, demonstrating FAVIO segmental and subsegmental PE. He received IV morphine which alleviated the pain somewhat , as well as supplemental oxygen which alleviated his hypoxia. He was initiated on lovenox and coumadin, and readmitted to the Inpt Rehab unit on 8 PM. History Information - Allergies/Home Medication List Allergies/Adverse Reactions: No Known Allergies Allergy (Unverified 03/02/18 15:48) Home Medications: Methyl Salicylate/Menthol [Bengay (*)] 1 ashley TP PRN PRN 03/21/18 [Last Taken 10:00] Acetaminophen [Tylenol 650/20.3ML Oral Liq (*)] 650 mg TUBE Q6H PRN 04/02/18 [ Last Taken Unknown] Bisacodyl [Magic Bullet 10 mg] 10 mg AR DAILY PRN 04/02/18 [Last Taken Unknown] LORazepam [Lorazepam Intensol] 0.5 mg PO Q6H PRN 04/02/18 [Last Taken Unknown] Magnesium Hydroxide [Milk of Magnesia] 400 mg PO Q4 PRN 04/02/18 [Last Taken Unknown] Sennosides [Senna] 8.8 mg PO BID PRN 04/02/18 [Last Taken Unknown] Triamcinolone 0.1% [Triamcinolone 0.1% Cream (*)] 1 ashley TP DAILY PRN 04/02/18 [ Last Taken Unknown] Sennosides [Senokot Oral Liquid] 8.8 mg PO HS 04/08/18 [Last Taken Unknown] I have personally reviewed and updated: family history, medical history, social history, surgical history - Past Medical History Additional medical history: 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 Hale for full details of the patient's recent hospitalizations at [facility], inpatient rehab, and subsequent re-evaluations and Re admissions. Acute left upper lobe pulmonary embolism. Hypertension. Diabetes. Recent sepsis with prevertebral fluid collection. Dysphagia - Surgical History Additional surgical history: ACDF C3 to C6. Recent PEG tube placement - Family History Additional family history: No family history of VTE - Social History Smoking Status: Former smoker Alcohol Use: Occasionally Drug Use: None Additional social history: Patient has been receiving inpatient rehab therapy prior to this admission, was transferred to [facility] for evaluation Review of Systems Review of Systems: ROS: 10pt was reviewed & negative except for what was stated in HPI & below Cardiac: Reports: chest pain, edema (Bilateral lower extremity) Respiratory: Reports: shortness of breath Physical Exam Physical Exam: Temp Pulse Resp BP Pulse Ox 36.7 C 109 H 18 93/55 L 89 L 04/08/18 14:05 04/08/18 14:09 04/08/18 14:05 04/08/18 14:05 04/08/18 14:09 O2 (L/minute) 5 Constitutional: no apparent distress, not in pain, chronically ill appearing, uncomfortable (Dry mouth) Eyes: PERRL, anicteric sclera, EOMI Ears, Nose, Mouth, Throat: hearing normal, other (Tacky mucous membranes) Cardiovascular: tachycardia, edema (1+ bilateral lower extremity), No systolic murmur, No irregularly irregular Respiratory: reduced air movement (Bilateral bases), other (Patient is dyspneic with speech), No expiratory wheeze, No inspiratory crackles, No bronchial breath sounds Gastrointestinal: normoactive bowel sounds, soft, non-tender abdomen, no palpable masses, No distension Skin: warm, No rash Neurologic: AAOx3, sensation intact bilaterally (But with numbness subjectively in the bilateral upper extremities), weakness (Bilateral biceps), No facial droop Psychiatric: interacting appropriately, not anxious, not encephalopathic, thought process linear Assessment & Plan Assessment: 78-year-old male presents for inpatient rehabilitation therapy for C3-C6 severe spinal stenosis status post ACDF complicated by acute pulmonary embolism Plan: 1. Pulmonary embolism. Present on this admission, most likely a developed throughout the course of his recent hospitalizations, most recently on pharmacologic VTE prophylaxis -reviewed outside records from [facility] emergency department report, by Dr. Nimco Douglass from 04/08/2018, her report indicates CT angiogram performed which demonstrates left upper lobe segmental and subsegmental pulmonary emboli without overt pulmonary infarction -patient initiated on Lovenox 100 mg at that facility, will be continued at 90 mg twice daily for weight based dosing to bridge him to a therapeutic INR -initiated Coumadin today, monitor INR -pain control as needed with Roxanol -continue supplemental oxygen, current need is 6 liters/minute, if escalating, will use 10 liters/minute or visible respiratory distress as our threshold to transfer back to the [facility] emergency department 2. Acute demand ischemia. Patient's troponin level 0.121 secondary to cardiac strain from pulmonary embolism, EKG reportedly unremarkable -attempting to repeat troponin level at this time, having difficulty placing peripheral IV, will provide him with additional normal saline flushes through his PEG tube and continue to attempt to draw labs to gauge whether the patient' s troponin level is down trending -if patient's troponin level is up trending, will need to send him back to the [facility] Emergency Department for echocardiogram as well as evaluation for cardiac strain from PE 3. Thyroid nodules. Multiple thyroid nodules noted on CT, largest 2.8 cm, warrants outpatient fine-needle aspiration if 1 has not been performed in the past -TSH currently 0.8 4. Pleural effusions. Reportedly small on CTA, personally interpreted most recent chest x-ray which does not demonstrate significant airspace disease -will monitor his respiratory status closely as we are increasing his normal saline flushes via PEG tube, and if oxygen needs are increasing, will stop normal saline flushes, reassess his pulmonary exam and consider transferring back to the emergency department for repeat chest imaging to ensure that he is not of all the into lis respiratory failure from volume overload -currently holding on diuretics, but this will be reconsidered on reassessment tomorrow depending on his ongoing oxygen requirements 5. Atelectasis. Acute, present on most recent chest x-ray, continue incentive spirometer 6. Dysphagia. Secondary to most recent ACDF surgery, continue tube feeds with flushes comma meds administered via tube -free air under the diaphragm present on chest x-ray as well as chest CT, most likely indicative of residual air after PEG tube placement, not pathological, benign abdomen on exam 7. Constipation. Scheduled bisacodyl in the morning, bowel regimen ordered 8. Diabetes. Continue Lantus, insulin sliding scale, metformin 9. Cervical stenosis. C3-C6, status post ACDF, complicated by prevertebral fluid collection -per Dr. Cisse, the patient is okay to remove collar -ongoing therapies Diet. NPO, swabs okay, tube feeds with normal saline boluses increased to 250 with tube feeds Prophylaxis. High risk, on Lovenox and Coumadin Code. Full Disposition. Anticipated discharge uncertain, ongoing therapy needs
[2018-04-08] MEDS ORDERED: BIOTENE DRY MOUTH ORAL RINSE 237 ML BTL MM PRN (15:06)
[2018-04-08] MEDS ORDERED: TRIAMCINOLONE 0.1% 15 GM CRTUBE TP PRN (15:06)
[2018-04-08] MEDS ORDERED: MAGNESIUM HYDROXIDE 30 ML UDCUP PO PRN (15:06)
[2018-04-08] MEDS ORDERED: PANCREASE FOR DOBHOFF 50 ML BTL TUBE PRN (15:06)
[2018-04-08] MEDS: traMADol 50 MG TAB TUBE PRN (16:15)
[2018-04-08] MEDS ORDERED: INSULIN LISPRO 100 UNIT/ML SC SCH (18:00)
[2018-04-08] MEDS: metFORMIN HCL 500 MG TAB PO SCH (18:34)
[2018-04-08] MEDS: CEPHALEXIN 250 MG/5 ML BULK BOTTLE TUBE SCH ×2 (18:34→23:55)
[2018-04-08] MEDS ORDERED: D50W 25 GM/50 ML SYR IVP PRN (19:11)
[2018-04-08] MEDS: INSULIN LISPRO 100 UNIT/1 ML VIAL LOW SC SCH (19:46)
[2018-04-08] MEDS ORDERED: ENOXAPARIN 80 MG/0.8 ML SYR SC SCH (21:00)
[2018-04-08] MEDS: LORazepam 1 MG/0.5 ML UDSYR PO PRN (21:21)
[2018-04-08] MEDS: SENNOSIDES 17.6 MG/10 ML UDL PO SCH (21:21)
[2018-04-08] MEDS: morphINE 10 MG/0.5 ML UDSYR TUBE PRN (21:22)
[2018-04-08] MEDS: METHYL SALICYLATE/MENTHOL OINTMENT TP PRN (21:43)
[2018-04-08] MEDS: INSULIN GLARGINE 100 UNITS/ML UNIT SC SCH (21:44)
[2018-04-09] MEDS: CEPHALEXIN 250 MG/5 ML BULK BOTTLE TUBE SCH ×4 (06:01→23:31)
[2018-04-09] MEDS: BISACODYL 10 MG SUPP PR SCH (06:01)
[2018-04-09 08:58] LABS: INR 1.14 (0.83-1.16); PROTIME(PATIENT) 14.8 SEC (12.0-15.0)
[2018-04-09] MEDS: INSULIN LISPRO 100 UNIT/1 ML VIAL LOW SC SCH ×3 (09:30→17:36)
[2018-04-09] MEDS: metFORMIN HCL 500 MG TAB PO SCH ×2 (09:31→17:19)
[2018-04-09] MEDS: ENOXAPARIN 100 MG/ML SYR SC SCH ×2 (09:38→20:48)
[2018-04-09] MEDS: traMADol 50 MG TAB TUBE PRN ×2 (09:38→20:48)
[2018-04-09] MEDS: LANSOPRAZOLE SUSP 30MG/10ML UDSYR (Adult) TUBE SCH (09:38)
[2018-04-09] MEDS: FLUOXETINE 4 MG/ML 30 ML BOTTLE TUBE SCH (09:39)
--- NOTE | 2018-04-09 12:18 | HOSPPROG ---
Hospitalist Progress Note Assessment/Plan: Assessment: 78-year-old male presents for inpatient rehabilitation therapy for C3-C6 severe spinal stenosis status post ACDF complicated by acute pulmonary embolism Plan: 1. Pulmonary embolism. Present on this admission, most likely developed throughout the course of his recent hospitalizations, most recent IPR stay on pharmacologic VTE prophylaxis -CT angiogram performed demonstrates left upper lobe segmental and subsegmental pulmonary emboli without overt pulmonary infarction -continue lovenox bridge at 90 mg twice daily until therapeutic INR x 24hrs -initiated Coumadin 04/07, monitor INR -pain control as needed with Roxanol -continue supplemental oxygen, current need is 4 liters/minute and stable 2. Acute demand ischemia. Patient's troponin level 0.121 secondary to cardiac strain from pulmonary embolism, EKG reportedly unremarkable -unable to get trop lab last PM and this AM, RN will continue attempts -patient denies any current chest pain, no indication for stat EKG (one is ordered for tomorrow AM) 3. Thyroid nodules. Multiple thyroid nodules noted on CT, largest 2.8 cm, warrants outpatient fine-needle aspiration if one has not been performed in the past -TSH currently 0.8 4. Pleural effusions. Reportedly small on CTA, most recent chest x-ray which does not demonstrate significant airspace disease -currently holding on diuretics, UE edema likely 2/2 immobilization -will adjust his normal saline TF flushes to free water to hopefully result in less water retention 5. Atelectasis. Acute, present on most recent chest x-ray, continue incentive spirometer 6. Dysphagia. Secondary to most recent ACDF surgery, continue tube feeds with flushes comma meds administered via tube -free air under the diaphragm present on chest x-ray as well as chest CT, most likely indicative of residual air after PEG tube placement, not pathological, benign abdomen on exam 7. Constipation. Scheduled bisacodyl in the morning, had BM / 8. Diabetes. Continue Lantus, insulin sliding scale, metformin on hold until able to check Cr 9. Cervical stenosis. C3-C6, status post ACDF, complicated by prevertebral fluid collection -per Dr. Cisse, collar removed -ongoing therapies Diet. NPO, swabs okay as well as hard candy to increase salivation (patient told not to swallow) Prophylaxis. High risk, on Lovenox and Coumadin Code. Full Disposition. Anticipated discharge uncertain, ongoing therapy needs Subjective: no chest pain, had BM, urinating well Objective: Vital Signs Temp Pulse Resp BP Pulse Ox 36.9 C 85 18 109/64 93 04/09/18 08:00 04/09/18 08:00 04/09/18 08:00 04/09/18 08:00 04/09/18 08:00 04/08/18 04/09/18 04/10/18 05:59 05:59 05:59 Intake Total 1230 500 Output Total 300 200 Balance 930 300 PT 14.8 SEC (12.0-15.0) 04/09/18 07:40 INR 1.14 (0.83-1.16) 04/09/18 07:40 - Physical Exam Constitutional: no apparent distress, appears nourished, not in pain, chronically ill appearing Ears, Nose, Mouth, Throat: other (dry mucous membranes) Cardiovascular: systolic murmur (II/ at sternum and apex), edema (1+ bilat UE , trace LE), No irregularly irregular, No tachycardia Respiratory: reduced air movement (bilat bases), No expiratory wheeze, No bronchial breath sounds, No respiratory distress Gastrointestinal: normoactive bowel sounds, soft, non-tender abdomen, other ( PEG in place) Skin: No erythema (around PEG site) Neurologic: AAOx3, weakness (1/5 bilat biceps, 4/5 hand info specialist bilat), No sensation intact bilaterally (subjective paresthesias bilat LE) Psychiatric: interacting appropriately, not anxious, not encephalopathic, thought process linear ICD10 Worksheet Patient Problems: Problems Problem Status Onset S/P cervical spinal fusion Acute Cervical spinal stenosis Acute
[2018-04-09] MEDS: WARFARIN SODIUM 5 MG TAB TUBE SCH (16:14)
[2018-04-09 17:00] LABS: PLATELET COUNT 260 10^3/uL (150-400)
[2018-04-09] MEDS: METHYL SALICYLATE/MENTHOL OINTMENT TP PRN (18:12)
[2018-04-09] MEDS: LORazepam 1 MG/0.5 ML UDSYR PO PRN (20:48)
[2018-04-09] MEDS: SENNOSIDES 17.6 MG/10 ML UDL PO SCH (20:50)
[2018-04-09] MEDS: INSULIN GLARGINE 100 UNITS/ML UNIT SC SCH (20:50)
[2018-04-10] MEDS: morphINE 10 MG/0.5 ML UDSYR TUBE PRN ×2 (02:16→20:12)
[2018-04-10] MEDS: traMADol 50 MG TAB TUBE PRN ×3 (04:51→22:13)
[2018-04-10] MEDS: CEPHALEXIN 250 MG/5 ML BULK BOTTLE TUBE SCH (05:00)
[2018-04-10] MEDS: BISACODYL 10 MG SUPP PR SCH (06:09)
[2018-04-10] MEDS: LANSOPRAZOLE SUSP 30MG/10ML UDSYR (Adult) TUBE SCH (07:31)
[2018-04-10] MEDS: ENOXAPARIN 100 MG/ML SYR SC SCH ×2 (07:32→20:11)
[2018-04-10] MEDS: FLUOXETINE 4 MG/ML 30 ML BOTTLE TUBE SCH (07:34)
--- NOTE | 2018-04-10 09:30 | PDOREHIP ---
Admission [facility] - Admission - 3 Day Assessment Period Admission Date/Day 1: 04/08/18 Day 2: 04/09/18 Day 3: 04/10/18 - Active Diagnoses Comorbidities and Co-existing Conditions at Admission: 08008. DM (e.g. diabetic retinopathy, nephropathy, and neuropathy) - Skin Conditions Unhealed Pressure Ulcer (1 or more/Stage 1 or >)-Admission: 0. No
[2018-04-10] MEDS: INSULIN LISPRO 100 UNIT/1 ML VIAL LOW SC SCH ×3 (09:55→18:38)
[2018-04-10] MEDS: metFORMIN HCL 500 MG TAB PO SCH ×2 (09:57→17:54)
--- NOTE | 2018-04-10 11:14 | SOAPPROG ---
SOAP Progress Note Assessment/Plan: Assessment: 8-year-old man with cervical spine myelopathy status post ACDF C3-C6, with dysphagia and bilateral C5 nerve root palsy, admitted to rehabilitation initially on 03/02/2018. Rehabilitation stay was interrupted 03/09/2018 for fluid collection in neck. Returned to rehabilitation 03/21/2018 with Dobhoff tube for feeding after failing VFSS; returned to hospital 03/29/2018 with Dobhoff tube clogged. Failed VFSS again and had PEG tube placement. Return to rehabilitation 04/02/2018. Had chest CT at [facility] 2017 for hypoxia with diagnosis of pulmonary embolus; returned to rehabilitation 04/08/2018. Dysphagia. Continue n.p.o. and feeding per PEG. * Continue treatment per [employer]RECTIONAL OFFICER SERGEANT. * Initiating e-stim. Cleared for ice chips. 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 He reports that he was told by Neurosurgery that it could be months to years for this to fully resolve. * Functional independence measure 31 on 04/04/2018 (was 30 on 03/24/2018 before most recent hospitalization;. was 47 on first rehabilitation stay).; improved to 35 on 04/10/2018. Moderate assist of 2 for bed mobility to assist with legs and trunk. Moderate assist of 2 for transfers. Ambulated 5-8 feet with moderate assist of 2. Total assist for activities of daily living. 2 person assist for transfers and bathing. Trial of suspension slings underway to facilitate upper extremity function. * Continue PT and OT with the goal of modified independence for bed mobility, transfers, and wheelchair mobility, and a setup and possible assistance for dressing and bathing. Pulmonary embolus. Has been off oxygen this morning, 04/10/2018. Continue oxygen as needed. Continue warfarin, with dosing per pharmacy, and bridging with enoxaparin. Diabetes mellitus type 2. * Blood sugars in the 115-162 range. Initiated insulin glargine 5 units at bedtime 03/23/2018. Increase to 8 U starting 03/24/2018. Continue four times daily blood sugar checks with insulin sliding scale. * Restart metformin 04/04/2018 at 500 mg twice daily. Increased to 1000 mg twice daily starting 04/06/2018. Was discontinued when dysphagia worsened and he had Dobhoff feeding. * Tube feeding transitioning from 5 times a day boluses to 4 times a day at mealtime and HS. Should work better with A.C. and HS sliding scale it insulin lispro. Thyroid nodules seen on chest CT. TSH within normal limits. Follow up with Endocrinology after discharge. Dry mouth. * Opiates may contribute, as may cetirizine. * Discontinue cetirizine. Initiate Biotene mouth rinse. Symptom management. * Morphine per G-tube for pain and G tube site; increased from 5 mg q.4 hours to 5 mg q.3 hours p.r.n. Continue acetaminophen oral liquid 650 mg per tube q.6 hours p.r.n. Add tramadol 50 mg q.6 hours p.r.n. May be useful as it has a longer duration of action than morphine. * Lorazepam 0.5 mg per tube q.4 hours p.r.n. muscle spasm or insomnia; using only for sleep. * Senna oral liquid per G-tube for opiate induced constipation; dose range 8.8 mg twice daily to 17.6 mg twice daily. * Bisacodyl suppository scheduled q.a.m. Muscle fasciculations, left medial thigh. Unclear etiology. Not bothersome to patient. Observe for resolution. No further evaluation or treatment at present. 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 Symptoms are resolved. No indication to continue acyclovir; discontinued 04/06/2018. Reduced breath sounds, right lung neely. Obtained chest x-ray 03/22/2018, read by radiologist as atelectasis versus patchy infiltrate. 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 He is not hypoxic, coughing or febrile. There is no specific treatment indicated. Continue incentive spirometry. History of hypertension, currently on no hypertensives. Blood pressure will be monitored and medications will be added if indicated. He was previously on lisinopril and triamterene/hydrochlorothiazide. Question of cellulitis at PEG site. * Started cephalexin 500 mg four times daily on 04/06/2018. * Resolved 04/10/2018 and cephalexin discontinued.Dyslipidemia. Reviewed lipid panel, 04/04/2018. No indication for statin. Adjustment disorder with depressed mood. Continue fluoxetine 20 mg per tube. Prophylaxis. Continue enoxaparin 40 mg subcutaneous daily until his mobility considerably increases. Continue lansoprazole 30 mg oral liquid per tube daily. DISPOSITION: Attended staffing, 15 min. Discussed with case management, dietitian, nursing, PT, OT, [employer] OFF[employer]ER SERGEANT. Anticipate length of stay as long as 4-6 weeks. Case Management will initiate Medicaid application in case he needs long -term care placement. Unlikely return home to single-level mobile home with his with several stairs to enter. Expect 4-6 week length of stay. FOLLOW-UP: With Neurosurgery after discharge from inpatient rehabilitation. Follow up with endocrinology regarding thyroid nodules. Plan: 04/10/18 10:57 Subjective: No complaints. Abdominal pain is much improved. He had some discomfort overnight when he was lying on his left side when she thinks might be related to the pulmonary embolus. No fevers or chills. Objective: Vital Signs Temp Pulse Resp BP Pulse Ox 36.6 C 82 18 130/63 H 94 04/10/18 05:53 04/10/18 05:53 04/10/18 05:53 04/10/18 05:53 04/10/18 05:53 Laboratory Results 04/09/18 15:25 04/09/18 15:25 04/09/18 04/10/18 04/11/18 05:59 05:59 05:59 Intake Total 1230 1910 470 Output Total 300 950 Balance 930 960 470 PT 14.8 SEC (12.0-15.0) 04/09/18 07:40 INR 1.14 (0.83-1.16) 04/09/18 07:40 - Time Spent With Patient Time Spent With Patient: Greater than 35 min floor time today, including more than 50% of time in coordination of care during staffing meeting, and counseling patient. Physical Exam - Physical Exam General Appearance: WD/WN, alert, no apparent distress Respiratory: normal breath sounds, decreased breath sounds (Right lower lung field), No crackles, No rhonchi, No wheezing Cardiac/Chest: regular rate, rhythm, edema (Bilateral upper extremities) Skin: other (PEG tube site without erythema or drainage) Neuro/Psych: alert, normal mood/affect, oriented x 3, motor weakness (Bilateral biceps) ICD10 Worksheet Patient Problems: Problems Problem Status Onset Cervical spinal stenosis Acute S/P cervical spinal fusion Acute
[2018-04-10] MEDS: ACETAMINOPHEN 650 MG/20.3 ML UDCUP TUBE PRN ×2 (13:03→22:12)
[2018-04-10] MEDS: WARFARIN SODIUM 5 MG TAB TUBE SCH (15:26)
[2018-04-10] MEDS: METHYL SALICYLATE/MENTHOL OINTMENT TP PRN (17:59)
[2018-04-10] MEDS: SENNOSIDES 17.6 MG/10 ML UDL PO SCH (20:11)
[2018-04-10] MEDS: INSULIN GLARGINE 100 UNITS/ML UNIT SC SCH (20:43)
[2018-04-11] MEDS: morphINE 10 MG/0.5 ML UDSYR TUBE PRN ×2 (00:20→03:18)
[2018-04-11] MEDS: BISACODYL 10 MG SUPP PR SCH (05:51)
[2018-04-11 08:11] LABS: INR 1.19 (0.83-1.16); PROTIME(PATIENT) 15.3 SEC (12.0-15.0)
[2018-04-11] MEDS: ACETAMINOPHEN 650 MG/20.3 ML UDCUP TUBE PRN (08:17)
[2018-04-11] MEDS: ENOXAPARIN 100 MG/ML SYR SC SCH ×2 (08:18→20:06)
[2018-04-11] MEDS: FLUOXETINE 4 MG/ML 30 ML BOTTLE TUBE SCH (08:20)
[2018-04-11] MEDS: INSULIN LISPRO 100 UNIT/1 ML VIAL LOW SC SCH ×3 (08:21→17:21)
[2018-04-11] MEDS: LANSOPRAZOLE SUSP 30MG/10ML UDSYR (Adult) TUBE SCH (08:23)
[2018-04-11] MEDS: metFORMIN HCL 500 MG TAB PO SCH ×2 (08:23→18:18)
[2018-04-11] MEDS: ONDANSETRON DISINTEGRATING 4 MG TAB PO PRN (11:44)
--- NOTE | 2018-04-11 13:38 | SOAPPROG ---
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 Rehabilitation stay was interrupted 03/09/2018 for fluid collection in neck. Returned to rehabilitation 03/21/2018 with Dobhoff tube for feeding after failing VFSS; returned to hospital 03/29/2018 with Dobhoff tube clogged. Failed VFSS again and had PEG tube placement. Return to rehabilitation 04/02/2018. Had chest CT at [facility] 2017 for hypoxia with diagnosis of pulmonary embolus; returned to rehabilitation 04/08/2018. Dysphagia. Continue n.p.o. and feeding per PEG. * Continue treatment per [employer]. * Initiating e-stim. Cleared for ice chips. 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 He reports that he was told by Neurosurgery that it could be months to years for this to fully resolve. * Functional independence measure 31 on 04/04/2018 (was 30 on 03/24/2018 before most recent hospitalization;. was 47 on first rehabilitation stay).; improved to 35 on 04/10/2018. Moderate assist of 2 for bed mobility to assist with legs and trunk. Moderate assist of 2 for transfers. Ambulated 5-8 feet with moderate assist of 2. Total assist for activities of daily living. 2 person assist for transfers and bathing. Trial of suspension slings underway to facilitate upper extremity function. * Continue PT and OT with the goal of modified independence for bed mobility, transfers, and wheelchair mobility, and a setup and possible assistance for dressing and bathing. Pulmonary embolus. Continue oxygen as needed. Continue warfarin, with dosing per pharmacy, and bridging with enoxaparin. Vomiting after tube feeding. Need to ensure that bowels are moving. Continue daily physical suppository. Will increase senna from at bedtime to twice daily starting 82,018. Bilateral upper extremity edema. No signs or symptoms of upper extremity DVTs. Dependent position certainly contributes. Continue to attempt to elevate arms when possible. Diabetes mellitus type 2. * Increased insulin glargine 8 U starting 03/24/2018. Continue four times daily blood sugar checks with insulin sliding scale. * Restart metformin 04/04/2018 at 500 mg twice daily. Increased to 1000 mg twice daily starting 04/06/2018. Was discontinued when dysphagia worsened and he had Dobhoff feeding. * Tube feeding transitioning from 5 times a day boluses to 4 times a day at mealtime and HS. Should work better with A.C. and HS sliding scale it insulin lispro. Thyroid nodules seen on chest CT. TSH within normal limits. Follow up with Endocrinology after discharge. Dry mouth. * Opiates may contribute, as may cetirizine. * Discontinue cetirizine. Initiate Biotene mouth rinse. Symptom management. * Morphine per G-tube for pain and G tube site; increased from 5 mg q.4 hours to 5 mg q.3 hours p.r.n. Continue acetaminophen oral liquid 650 mg per tube q.6 hours p.r.n. Add tramadol 50 mg q.6 hours p.r.n. May be useful as it has a longer duration of action than morphine. * Lorazepam 0.5 mg per tube q.4 hours p.r.n. muscle spasm or insomnia; using only for sleep. * Senna oral liquid per G-tube for opiate induced constipation; dose range 8.8 mg twice daily to 17.6 mg twice daily. * Bisacodyl suppository scheduled q.a.m. Muscle fasciculations, left medial thigh. Unclear etiology. Not bothersome to patient. Observe for resolution. No further evaluation or treatment at present. 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 Symptoms are resolved. No indication to continue acyclovir; discontinued 04/06/2018. Reduced breath sounds, right lung neely. Obtained chest x-ray 03/22/2018, read by radiologist as atelectasis versus patchy infiltrate. 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 He is not hypoxic, coughing or febrile. There is no specific treatment indicated. Continue incentive spirometry. History of hypertension, currently on no hypertensives. Blood pressure will be monitored and medications will be added if indicated. He was previously on lisinopril and triamterene/hydrochlorothiazide. Question of cellulitis at PEG site. * Started cephalexin 500 mg four times daily on 04/06/2018. * Resolved 04/10/2018 and cephalexin discontinued.Dyslipidemia. Reviewed lipid panel, 04/04/2018. No indication for statin. Adjustment disorder with depressed mood. Continue fluoxetine 20 mg per tube. Prophylaxis. Continue enoxaparin 40 mg subcutaneous daily until his mobility considerably increases. Continue lansoprazole 30 mg oral liquid per tube daily. DISPOSITION: Attended staffing, 15 min. Discussed with case management, dietitian, nursing, PT, OT, [employer]. Anticipate length of stay as long as 4-6 weeks. Case Management will initiate Medicaid application in case he needs long -term care placement. Unlikely return home to single-level mobile home with his with several stairs to enter. Expect 4-6 week length of stay. FOLLOW-UP: With Neurosurgery after discharge from inpatient rehabilitation. Follow up with endocrinology regarding thyroid nodules. 04/11/18 13:18 Subjective: Had pain overnight in use several doses of morphine. Had vomiting after his tube feeding this morning and late morning, finally relieved with ondansetron. Denies abdominal pain. No cough or dyspnea. Objective: Vital Signs Temp Pulse Resp BP Pulse Ox 36.8 C 87 20 129/70 H 94 04/11/18 06:36 04/10/18 18:39 04/11/18 06:36 04/11/18 06:36 04/11/18 06:36 Laboratory Results 04/09/18 15:25 04/09/18 15:25 04/10/18 04/11/18 04/12/18 05:59 05:59 05:59 Intake Total 1910 2420 Output Total 950 1100 200 Balance 960 1320 -200 PT 15.3 SEC (12.0-15.0) H 04/11/18 06:00 INR 1.19 (0.83-1.16) H 04/11/18 06:00 Physical Exam - Physical Exam General Appearance: WD/WN, alert, no apparent distress Respiratory: normal breath sounds, decreased breath sounds (Right lower lung field), No crackles, No rhonchi, No wheezing Abdomen: non-tender, soft, other (Reduced bowel sounds), No distended Extremities: swelling (Bilateral upper extremities), other (No axillary or medial upper arm tenderness) Neuro/Psych: alert, normal mood/affect, oriented x 3, motor weakness (Bilateral biceps) ICD10 Worksheet Patient Problems: Problems Problem Status Onset Cervical spinal stenosis Acute S/P cervical spinal fusion Acute
[2018-04-11] MEDS: LORazepam 1 MG/0.5 ML UDSYR PO PRN (14:59)
[2018-04-11] MEDS ORDERED: WARFARIN SODIUM 5 MG TAB PO ONE (16:00)
[2018-04-11] MEDS: SENNOSIDES 17.6 MG/10 ML UDL PO SCH (20:06)
[2018-04-11] MEDS: METHYL SALICYLATE/MENTHOL OINTMENT TP PRN (20:21)
[2018-04-11] MEDS: INSULIN GLARGINE 100 UNITS/ML UNIT SC SCH (20:26)
[2018-04-11] MEDS: traMADol 50 MG TAB TUBE PRN (20:35)
[2018-04-12] MEDS: LORazepam 1 MG/0.5 ML UDSYR PO PRN ×3 (00:14→22:39)
[2018-04-12] MEDS: BISACODYL 10 MG SUPP PR SCH (05:27)
[2018-04-12 08:04] LABS: INR 1.34 (0.83-1.16); PROTIME(PATIENT) 16.8 SEC (12.0-15.0)
[2018-04-12] MEDS: ACETAMINOPHEN 650 MG/20.3 ML UDCUP TUBE PRN ×2 (09:33→18:36)
[2018-04-12] MEDS: ENOXAPARIN 100 MG/ML SYR SC SCH ×2 (09:34→20:11)
[2018-04-12] MEDS: metFORMIN HCL 500 MG TAB PO SCH ×2 (09:35→18:19)
[2018-04-12] MEDS: LANSOPRAZOLE SUSP 30MG/10ML UDSYR (Adult) TUBE SCH (09:35)
[2018-04-12] MEDS: FLUOXETINE 4 MG/ML 30 ML BOTTLE TUBE SCH (09:36)
[2018-04-12] MEDS: SENNOSIDES 17.6 MG/10 ML UDL PO SCH ×2 (09:36→20:11)
[2018-04-12] MEDS: INSULIN LISPRO 100 UNIT/1 ML VIAL LOW SC SCH ×3 (10:32→16:56)
--- NOTE | 2018-04-12 11:40 | SOAPPROG ---
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 Rehabilitation stay was interrupted 03/09/2018 for fluid collection in neck. Returned to rehabilitation 03/21/2018 with Dobhoff tube for feeding after failing VFSS; returned to hospital 03/29/2018 with Dobhoff tube clogged. Failed VFSS again and had PEG tube placement. Return to rehabilitation 04/02/2018. Had chest CT at [facility] 2017 for hypoxia with diagnosis of pulmonary embolus; returned to rehabilitation 04/08/2018. Dysphagia. Continue n.p.o. and feeding per PEG. * Continue treatment per TELEPHONE [employer]ICITOR. * Receiving e-stim. Cleared for ice chips. 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 He reports that he was told by Neurosurgery that it could be months to years for this to fully resolve. * Functional independence measure 31 on 04/04/2018 (was 30 on 03/24/2018 before most recent hospitalization;. was 47 on first rehabilitation stay).; improved to 35 on 04/10/2018. Moderate assist of 2 for bed mobility to assist with legs and trunk. Moderate assist of 2 for transfers. Ambulated 5-8 feet with moderate assist of 2. Total assist for activities of daily living. 2 person assist for transfers and bathing. Trial of suspension slings underway to facilitate upper extremity function. * Continue PT and OT with the goal of modified independence for bed mobility, transfers, and wheelchair mobility, and a setup and possible assistance for dressing and bathing. Pulmonary embolus. Continue oxygen as needed. Continue warfarin, with dosing per pharmacy, and bridging with enoxaparin. Vomiting after tube feeding. Need to ensure that bowels are moving. Continue daily physical suppository. Will increase senna from at bedtime to twice daily starting 82,018. Bilateral upper extremity edema. No signs or symptoms of upper extremity DVTs. Dependent position certainly contributes. Continue to attempt to elevate arms when possible. Diabetes mellitus type 2. * Increased insulin glargine 8 U starting 03/24/2018. Continue four times daily blood sugar checks with insulin sliding scale. * Restart metformin 04/04/2018 at 500 mg twice daily. Increased to 1000 mg twice daily starting 04/06/2018. Was discontinued when dysphagia worsened and he had Dobhoff feeding. * Tube feeding transitioning from 5 times a day boluses to 4 times a day at mealtime and HS. Should work better with A.C. and HS sliding scale it insulin lispro. Thyroid nodules seen on chest CT. TSH within normal limits. Follow up with Endocrinology after discharge. Dry mouth. * Opiates may contribute, as may cetirizine. * Discontinue cetirizine. Initiate Biotene mouth rinse. Symptom management. * Morphine per G-tube for pain and G tube site; increased from 5 mg q.4 hours to 5 mg q.3 hours p.r.n. Continue acetaminophen oral liquid 650 mg per tube q.6 hours p.r.n. Add tramadol 50 mg q.6 hours p.r.n. May be useful as it has a longer duration of action than morphine. * Lorazepam 0.5 mg per tube q.4 hours p.r.n. muscle spasm or insomnia; using only for sleep. * Senna oral liquid per G-tube for opiate induced constipation; dose range 8.8 mg twice daily to 17.6 mg twice daily. * Bisacodyl suppository scheduled q.a.m. Muscle fasciculations, left medial thigh. Unclear etiology. Not bothersome to patient. Observe for resolution. No further evaluation or treatment at present. 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 Symptoms are resolved. No indication to continue acyclovir; discontinued 04/06/2018. Reduced breath sounds, right lung neely. Obtained chest x-ray 03/22/2018, read by radiologist as atelectasis versus patchy infiltrate. 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 He is not hypoxic, coughing or febrile. There is no specific treatment indicated. Continue incentive spirometry. * Improving on exam, 04/12/2018. History of hypertension, currently on no hypertensives. Blood pressure will be monitored and medications will be added if indicated. He was previously on lisinopril and triamterene/hydrochlorothiazide. Question of cellulitis at PEG site. * Started cephalexin 500 mg four times daily on 04/06/2018. * Resolved 04/10/2018 and cephalexin discontinued.Dyslipidemia. History of dyslipidemia. Reviewed lipid panel, 04/04/2018. No indication for statin. Adjustment disorder with depressed mood. Continue fluoxetine 20 mg per tube. Prophylaxis. Continue enoxaparin 40 mg subcutaneous daily until his mobility considerably increases. Continue lansoprazole 30 mg oral liquid per tube daily. DISPOSITION: Attended staffing, 15 min. Discussed with case management, dietitian, nursing, PT, OT, TELEPHONE SOLICITOR. Anticipate length of stay as long as 4-6 weeks. Case Management will initiate Medicaid application in case he needs long -term care placement. Unlikely return home to single-level mobile home with his with several stairs to enter. Expect 4-6 week length of stay. FOLLOW-UP: With Neurosurgery after discharge from inpatient rehabilitation. Follow up with endocrinology regarding thyroid nodules. 04/12/18 11:38 Subjective: Slept well. Pain controlled. Normal vomiting today. Objective: Vital Signs Temp Pulse Resp BP Pulse Ox 36.8 C 86 18 121/68 H 94 04/12/18 07:04 04/12/18 07:04 04/12/18 07:04 04/12/18 07:04 04/12/18 07:04 Laboratory Results 04/09/18 15:25 04/09/18 15:25 04/11/18 04/12/18 04/13/18 05:59 05:59 05:59 Intake Total 2420 1275 885 Output Total 1100 1810 200 Balance 1320 -535 685 PT 16.8 SEC (12.0-15.0) H 04/12/18 06:00 INR 1.34 (0.83-1.16) H 04/12/18 06:00 Physical Exam - Physical Exam General Appearance: WD/WN, alert, no apparent distress Respiratory: normal breath sounds, decreased breath sounds (Improved breath sounds with bronchophony, right lower lobe.), No crackles, No rhonchi, No wheezing Cardiac/Chest: regular rate, rhythm, edema (Bilateral upper extremity, improving.), systolic murmur Skin: normal color, warm/dry Neuro/Psych: alert, normal mood/affect, oriented x 3, motor weakness (Bilateral biceps) ICD10 Worksheet Patient Problems: Problems Problem Status Onset Cervical spinal stenosis Acute S/P cervical spinal fusion Acute
[2018-04-12] MEDS: ONDANSETRON DISINTEGRATING 4 MG TAB PO PRN ×2 (13:56→21:14)
[2018-04-12] MEDS: traMADol 50 MG TAB TUBE PRN (14:41)
[2018-04-12] MEDS ORDERED: WARFARIN SODIUM 5 MG TAB PO ONE (16:00)
[2018-04-12] MEDS: morphINE 10 MG/0.5 ML UDSYR TUBE PRN (20:03)
[2018-04-12] MEDS: INSULIN GLARGINE 100 UNITS/ML UNIT SC SCH (21:16)
[2018-04-13] MEDS: ACETAMINOPHEN 650 MG/20.3 ML UDCUP TUBE PRN ×3 (01:27→18:46)
[2018-04-13] MEDS: BISACODYL 10 MG SUPP PR SCH (06:40)
[2018-04-13] MEDS: INSULIN LISPRO 100 UNIT/1 ML VIAL LOW SC SCH ×3 (07:56→18:28)
[2018-04-13] MEDS: ENOXAPARIN 100 MG/ML SYR SC SCH ×2 (08:01→20:18)
[2018-04-13] MEDS: LANSOPRAZOLE SUSP 30MG/10ML UDSYR (Adult) TUBE SCH (08:04)
[2018-04-13 08:13] LABS: INR 1.73 (0.83-1.16); PROTIME(PATIENT) 20.4 SEC (12.0-15.0)
[2018-04-13] MEDS: FLUOXETINE 4 MG/ML 30 ML BOTTLE TUBE SCH (09:18)
[2018-04-13] MEDS: SENNOSIDES 17.6 MG/10 ML UDL PO SCH ×2 (09:22→20:42)
[2018-04-13] MEDS: metFORMIN HCL 500 MG TAB TUBE SCH ×2 (10:00→18:37)
[2018-04-13] MEDS: metFORMIN HCL 500 MG TAB PO SCH (10:13)
--- NOTE | 2018-04-13 13:38 | SOAPPROG ---
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 Rehabilitation stay was interrupted 03/09/2018 for fluid collection in neck. Returned to rehabilitation 03/21/2018 with Dobhoff tube for feeding after failing VFSS; returned to hospital 03/29/2018 with Dobhoff tube clogged. Failed VFSS again and had PEG tube placement. Return to rehabilitation 04/02/2018. Had chest CT at [facility] 2017 for hypoxia with diagnosis of pulmonary embolus; returned to rehabilitation 04/08/2018. Dysphagia. Continue n.p.o. and feeding per PEG. * Continue treatment per PROGRAMMING INTERN. * Initiating e-stim. Cleared for ice chips. 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 He reports that he was told by Neurosurgery that it could be months to years for this to fully resolve. * Functional independence measure 31 on 04/04/2018 (was 30 on 03/24/2018 before most recent hospitalization;. was 47 on first rehabilitation stay).; improved to 35 on 04/10/2018. Moderate assist of 2 for bed mobility to assist with legs and trunk. Moderate assist of 2 for transfers. Ambulated 5-8 feet with moderate assist of 2. Total assist for activities of daily living. 2 person assist for transfers and bathing. Trial of suspension slings underway to facilitate upper extremity function. * Continue PT and OT with the goal of modified independence for bed mobility, transfers, and wheelchair mobility, and a setup and possible assistance for dressing and bathing. Pulmonary embolus. Continue oxygen as needed. Continue warfarin, with dosing per pharmacy, and bridging with enoxaparin. Vomiting after tube feeding, 04/12/2018. Need to ensure that bowels are moving. Have over corrected and now he has diarrhea, with C diff negative. Change bisacodyl suppository to p.r.n.; reduce senna dose to at bedtime. Nursing to discuss with dietitian regarding whether tube feed formula might be contributing to diarrhea. Bilateral upper extremity edema. No signs or symptoms of upper extremity DVTs. Dependent position certainly contributes. Continue to attempt to elevate arms when possible. Diabetes mellitus type 2. * Increased insulin glargine 8 U starting 03/24/2018. Continue four times daily blood sugar checks with insulin sliding scale. * Restart metformin 04/04/2018 at 500 mg twice daily. Increased to 1000 mg twice daily starting 04/06/2018. Was discontinued when dysphagia worsened and he had Dobhoff feeding. * Tube feeding transitioning from 5 times a day boluses to 4 times a day at mealtime and HS. Should work better with A.C. and HS sliding scale it insulin lispro. Thyroid nodules seen on chest CT. TSH within normal limits. Follow up with Endocrinology after discharge. Dry mouth. * Opiates may contribute, as may cetirizine. * Discontinue cetirizine. Initiate Biotene mouth rinse. Symptom management. * Morphine per G-tube for pain and G tube site; increased from 5 mg q.4 hours to 5 mg q.3 hours p.r.n. Continue acetaminophen oral liquid 650 mg per tube q.6 hours p.r.n. Add tramadol 50 mg q.6 hours p.r.n. May be useful as it has a longer duration of action than morphine. * Lorazepam 0.5 mg per tube q.4 hours p.r.n. muscle spasm or insomnia; using only for sleep. * Senna oral liquid per G-tube for opiate induced constipation; dose range 8.8 mg twice daily to 17.6 mg twice daily. * Bisacodyl suppository scheduled q.a.m. 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 Symptoms are resolved. No indication to continue acyclovir; discontinued 04/06/2018. Reduced breath sounds, right lung neely. Obtained chest x-ray 03/22/2018, read by radiologist as atelectasis versus patchy infiltrate. 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 He is not hypoxic, coughing or febrile. There is no specific treatment indicated. Continue incentive spirometry. History of hypertension, currently on no hypertensives. Blood pressure will be monitored and medications will be added if indicated. He was previously on lisinopril and triamterene/hydrochlorothiazide. Question of cellulitis at PEG site. * Started cephalexin 500 mg four times daily on 04/06/2018. * Resolved 04/10/2018 and cephalexin discontinued. Dyslipidemia. Reviewed lipid panel, 04/04/2018. No indication for statin. Adjustment disorder with depressed mood. Continue fluoxetine 20 mg per tube. Prophylaxis. Continue enoxaparin 40 mg subcutaneous daily until his mobility considerably increases. Continue lansoprazole 30 mg oral liquid per tube daily. DISPOSITION: Anticipate length of stay as long as 4-6 weeks. Case Management will initiate Medicaid application in case he needs long-term care placement. Unlikely return home to single-level mobile home with his with several stairs to enter. FOLLOW-UP: With Neurosurgery after discharge from inpatient rehabilitation. Follow up with endocrinology regarding thyroid nodules. 04/13/18 13:35 Subjective: Has diarrhea today no abdominal pain, fevers or chills. Feeling somewhat discouraged. Otherwise without complaints. Pain at the PEG tube site is mostly incident pain, if it gets bumped wrong. He has reduced his use of pain medications and is trying to rely on acetaminophen rather than the opiates. Objective: Vital Signs Temp Pulse Resp BP Pulse Ox 36.4 C 82 18 129/73 H 95 04/13/18 07:33 04/13/18 07:33 04/13/18 07:33 04/13/18 07:33 04/13/18 07:33 Laboratory Results 04/09/18 15:25 04/09/18 15:25 04/12/18 04/13/18 04/14/18 05:59 05:59 05:59 Intake Total 1275 2505 505 Output Total 1810 1100 575 Balance -535 1405 -70 PT 20.4 SEC (12.0-15.0) H 04/13/18 06:00 INR 1.73 (0.83-1.16) H 04/13/18 06:00 Physical Exam - Physical Exam General Appearance: WD/WN, alert, no apparent distress Respiratory: No respiratory distress, No accessory muscle use Abdomen: normal bowel sounds, non-tender, soft, No distended Skin: other (Minimal erythema around PEG site, no discharge.) Neuro/Psych: alert, normal mood/affect, oriented x 3, motor weakness (Bilateral biceps) ICD10 Worksheet Patient Problems: Problems Problem Status Onset Cervical spinal stenosis Acute S/P cervical spinal fusion Acute
[2018-04-13] MEDS ORDERED: WARFARIN SODIUM 5 MG TAB PO ONE (18:00)
[2018-04-13] MEDS ORDERED: WARFARIN SODIUM 5 MG TAB TUBE ONE (18:45)
[2018-04-13] MEDS: morphINE 10 MG/0.5 ML UDSYR TUBE PRN (19:17)
[2018-04-13] MEDS: INSULIN GLARGINE 100 UNITS/ML UNIT SC SCH (21:27)
[2018-04-13] MEDS: LORazepam 1 MG/0.5 ML UDSYR PO PRN (21:51)
[2018-04-14] MEDS: traMADol 50 MG TAB TUBE PRN (00:52)
[2018-04-14] MEDS: INSULIN LISPRO 100 UNIT/1 ML VIAL LOW SC SCH ×3 (07:56→17:44)
[2018-04-14] MEDS: ENOXAPARIN 100 MG/ML SYR SC SCH ×2 (08:08→20:23)
[2018-04-14] MEDS: LANSOPRAZOLE SUSP 30MG/10ML UDSYR (Adult) TUBE SCH (08:10)
[2018-04-14 09:05] LABS: INR 1.68 (0.83-1.16); PROTIME(PATIENT) 19.9 SEC (12.0-15.0)
[2018-04-14] MEDS: FLUOXETINE 4 MG/ML 30 ML BOTTLE TUBE SCH (09:48)
[2018-04-14] MEDS: metFORMIN HCL 500 MG TAB TUBE SCH ×2 (09:53→17:50)
[2018-04-14] MEDS: ONDANSETRON DISINTEGRATING 4 MG TAB PO PRN ×2 (10:43→19:54)
--- NOTE | 2018-04-14 11:03 | SOAPPROG ---
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 Rehabilitation stay was interrupted 03/09/2018 for fluid collection in neck. Returned to rehabilitation 03/21/2018 with Dobhoff tube for feeding after failing VFSS; returned to hospital 03/29/2018 with Dobhoff tube clogged. Failed VFSS again and had PEG tube placement. Return to rehabilitation 04/02/2018. Had chest CT at [facility] 2017 for hypoxia with diagnosis of pulmonary embolus; returned to rehabilitation 04/08/2018. Dysphagia. Continue n.p.o. and feeding per PEG. * Continue treatment per DEFENSIVE LINE COACH. * Initiating e-stim. Cleared for ice chips. 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 He reports that he was told by Neurosurgery that it could be months to years for this to fully resolve. * Functional independence measure 31 on 04/04/2018 (was 30 on 03/24/2018 before most recent hospitalization;. was 47 on first rehabilitation stay).; improved to 35 on 04/10/2018. Moderate assist of 2 for bed mobility to assist with legs and trunk. Moderate assist of 2 for transfers. Ambulated 5-8 feet with moderate assist of 2. Total assist for activities of daily living. 2 person assist for transfers and bathing. Trial of suspension slings underway to facilitate upper extremity function. * Continue PT and OT with the goal of modified independence for bed mobility, transfers, and wheelchair mobility, and a setup and possible assistance for dressing and bathing. Pulmonary embolus. Continue oxygen as needed. Continue warfarin, with dosing per pharmacy, and bridging with enoxaparin. Vomiting after tube feeding, 04/12/2018. Need to ensure that bowels are moving. Have over corrected and now he has diarrhea, with C diff negative. Change bisacodyl suppository to p.r.n.; reduce senna dose to at bedtime. Nursing to discuss with dietitian regarding whether tube feed formula might be contributing to diarrhea. Bilateral upper extremity edema. No signs or symptoms of upper extremity DVTs. Dependent position certainly contributes. Continue to attempt to elevate arms when possible. Diabetes mellitus type 2. * Increased insulin glargine 8 U starting 03/24/2018. Continue four times daily blood sugar checks with insulin sliding scale. * Restart metformin 04/04/2018 at 500 mg twice daily. Increased to 1000 mg twice daily starting 04/06/2018. Was discontinued when dysphagia worsened and he had Dobhoff feeding. Thyroid nodules seen on chest CT. TSH within normal limits. Follow up with Endocrinology after discharge. Dry mouth. * Opiates may contribute, as may cetirizine. * Discontinue cetirizine. Initiate Biotene mouth rinse. Symptom management. * Using opiates rarely; had single dose of morphine 5 mg at HS on 04/13 2018 and had a cell dose of tramadol on 04/13/2018 using p.r.n. acetaminophen as well. * Lorazepam 0.5 mg per tube q.4 hours p.r.n. muscle spasm, anxiety or insomnia. * Senna oral liquid per G-tube for opiate induced constipation; dose range 8.8 mg twice daily to 17.6 mg twice daily. * Bisacodyl suppository prn. 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 Symptoms are resolved. No indication to continue acyclovir; discontinued 04/06/2018. Reduced breath sounds, right lung neely. Obtained chest x-ray 03/22/2018, read by radiologist as atelectasis versus patchy infiltrate. 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 He is not hypoxic, coughing or febrile. There is no specific treatment indicated. Continue incentive spirometry. History of hypertension, currently on no hypertensives. Blood pressure will be monitored and medications will be added if indicated. He was previously on lisinopril and triamterene/hydrochlorothiazide. Question of cellulitis at PEG site. * Started cephalexin 500 mg four times daily on 04/06/2018. * Resolved 04/10/2018 and cephalexin discontinued. Dyslipidemia. Reviewed lipid panel, 04/04/2018. No indication for statin. Adjustment disorder with depressed mood. Continue fluoxetine 20 mg per tube. Prophylaxis. Continue enoxaparin 40 mg subcutaneous daily until his mobility considerably increases. Continue lansoprazole 30 mg oral liquid per tube daily. DISPOSITION: Anticipate length of stay as long as 4-6 weeks. Case Management will initiate Medicaid application in case he needs long-term care placement. Unlikely return home to single-level mobile home with his with several stairs to enter. FOLLOW-UP: With Neurosurgery after discharge from inpatient rehabilitation. Follow up with endocrinology regarding thyroid nodules. 04/14/18 10:58 Subjective: Complains of nausea after his tube feeding this morning. Otherwise doing well, not needing oxygen at the moment. No cough or dyspnea, no fevers or chills. Diarrhea is resolved. Objective: Vital Signs Temp Pulse Resp BP Pulse Ox 36.7 C 80 16 138/84 H 92 04/14/18 06:14 04/14/18 06:14 04/14/18 06:14 04/14/18 06:14 04/14/18 10:46 Laboratory Results 04/09/18 15:25 04/09/18 15:25 04/13/18 04/14/18 04/15/18 05:59 05:59 05:59 Intake Total 2505 2885 200 Output Total 1100 2225 200 Balance 1405 660 0 PT 19.9 SEC (12.0-15.0) H 04/14/18 06:10 INR 1.68 (0.83-1.16) H 04/14/18 06:10 Physical Exam - Physical Exam General Appearance: WD/WN, alert, no apparent distress Respiratory: No respiratory distress, No accessory muscle use Skin: normal color, warm/dry Extremities: other (Bilateral upper extremity edema) Neuro/Psych: alert, normal mood/affect, oriented x 3, motor weakness (Bilateral biceps) ICD10 Worksheet Patient Problems: Problems Problem Status Onset Cervical spinal stenosis Acute S/P cervical spinal fusion Acute
[2018-04-14] MEDS ORDERED: WARFARIN SODIUM 7.5 MG TAB PO ONE (16:00)
[2018-04-14] MEDS: traZODone 50 MG TAB PO SCH (17:55)
[2018-04-14] MEDS: LORazepam 1 MG/0.5 ML UDSYR PO PRN (20:24)
[2018-04-14] MEDS: SENNOSIDES 17.6 MG/10 ML UDL PO SCH (20:27)
[2018-04-14] MEDS: INSULIN GLARGINE 100 UNITS/ML UNIT SC SCH (20:28)
[2018-04-14] MEDS ORDERED: PROMETHAZINE HCL 25 MG TAB TUBE PRN (22:52)
[2018-04-14] MEDS ORDERED: PROMETHAZINE HCL 25 MG TAB TUBE ONE (23:00)
[2018-04-14] MEDS: traZODone 50 MG TAB PO PRN (23:05)
[2018-04-15 09:20] LABS: INR 1.72 (0.83-1.16); PROTIME(PATIENT) 20.3 SEC (12.0-15.0)
[2018-04-15] MEDS: LANSOPRAZOLE SUSP 30MG/10ML UDSYR (Adult) TUBE SCH (09:43)
[2018-04-15] MEDS: ENOXAPARIN 100 MG/ML SYR SC SCH ×2 (09:43→21:52)
[2018-04-15] MEDS: INSULIN LISPRO 100 UNIT/1 ML VIAL LOW SC SCH ×3 (09:43→18:39)
[2018-04-15] MEDS: FLUOXETINE 4 MG/ML 30 ML BOTTLE TUBE SCH (09:43)
[2018-04-15] MEDS: metFORMIN HCL 500 MG TAB TUBE SCH ×2 (09:43→18:33)
[2018-04-15] MEDS ORDERED: WARFARIN SODIUM 7.5 MG TAB PO ONE (16:00)
[2018-04-15] MEDS: traZODone 50 MG TAB PO SCH (18:33)
--- NOTE | 2018-04-15 19:24 | HOSPPROG ---
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 Rehabilitation stay was interrupted 03/09/2018 for fluid collection in neck. Returned to rehabilitation 03/21/2018 with Dobhoff tube for feeding after failing VFSS; returned to hospital 03/29/2018 with Dobhoff tube clogged. Failed VFSS again and had PEG tube placement. Return to rehabilitation 04/02/2018. Had chest CT at [facility] 2017 for hypoxia with diagnosis of pulmonary embolus; returned to rehabilitation 04/08/2018. Dysphagia. Continue n.p.o. and feeding per PEG. * Continue treatment per ALTERATION TAILOR. * Initiating e-stim. Cleared for ice chips. 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 He reports that he was told by Neurosurgery that it could be months to years for this to fully resolve. * Functional independence measure 31 on 04/04/2018 (was 30 on 03/24/2018 before most recent hospitalization;. was 47 on first rehabilitation stay).; improved to 35 on 04/10/2018. Moderate assist of 2 for bed mobility to assist with legs and trunk. Moderate assist of 2 for transfers. Ambulated 5-8 feet with moderate assist of 2. Total assist for activities of daily living. 2 person assist for transfers and bathing. Trial of suspension slings underway to facilitate upper extremity function. * Continue PT and OT with the goal of modified independence for bed mobility, transfers, and wheelchair mobility, and a setup and possible assistance for dressing and bathing. Pulmonary embolus. Continue oxygen as needed. Continue warfarin, with dosing per pharmacy, and bridging with enoxaparin. Vomiting after tube feeding, 04/12/2018. Need to ensure that bowels are moving. Have over corrected and now he has diarrhea, with C diff negative. Change bisacodyl suppository to p.r.n.; reduce senna dose to at bedtime. Nursing to discuss with dietitian regarding whether tube feed formula might be contributing to diarrhea. Bilateral upper extremity edema. No signs or symptoms of upper extremity DVTs. Dependent position certainly contributes. Continue to attempt to elevate arms when possible. Diabetes mellitus type 2. * Increased insulin glargine 8 U starting 03/24/2018. Continue four times daily blood sugar checks with insulin sliding scale. * Restart metformin 04/04/2018 at 500 mg twice daily. Increased to 1000 mg twice daily starting 04/06/2018. Was discontinued when dysphagia worsened and he had Dobhoff feeding. Thyroid nodules seen on chest CT. TSH within normal limits. Follow up with Endocrinology after discharge. Dry mouth. * Opiates may contribute, as may cetirizine. * Discontinue cetirizine. Initiate Biotene mouth rinse. Symptom management. * Using opiates rarely; had single dose of morphine 5 mg at HS on 04/13 2018 and had a cell dose of tramadol on 04/13/2018 using p.r.n. acetaminophen as well. * Lorazepam 0.5 mg per tube q.4 hours p.r.n. muscle spasm, anxiety or insomnia. * Senna oral liquid per G-tube for opiate induced constipation; dose range 8.8 mg twice daily to 17.6 mg twice daily. * Bisacodyl suppository prn. 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 Symptoms are resolved. No indication to continue acyclovir; discontinued 04/06/2018. Reduced breath sounds, right lung neely. Obtained chest x-ray 03/22/2018, read by radiologist as atelectasis versus patchy infiltrate. 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 He is not hypoxic, coughing or febrile. There is no specific treatment indicated. Continue incentive spirometry. History of hypertension, currently on no hypertensives. Blood pressure will be monitored and medications will be added if indicated. He was previously on lisinopril and triamterene/hydrochlorothiazide. Question of cellulitis at PEG site. * Started cephalexin 500 mg four times daily on 04/06/2018. * Resolved 04/10/2018 and cephalexin discontinued. Dyslipidemia. Reviewed lipid panel, 04/04/2018. No indication for statin. Adjustment disorder with depressed mood. Continue fluoxetine 20 mg per tube. Prophylaxis. Continue enoxaparin 40 mg subcutaneous daily until his mobility considerably increases. Continue lansoprazole 30 mg oral liquid per tube daily. Subjective: no new complaints Objective: Vital Signs Temp Pulse Resp BP Pulse Ox 36.9 C 89 17 128/70 H 93 04/15/18 06:46 04/15/18 06:46 04/15/18 06:46 04/15/18 06:46 04/15/18 06:46 Laboratory Results 04/09/18 15:25 04/09/18 15:25 04/14/18 04/15/18 04/16/18 05:59 05:59 05:59 Intake Total 2885 1225 2230 Output Total 2225 2300 225 Balance 660 -1075 2004 PT 20.3 SEC (12.0-15.0) H 04/15/18 07:45 INR 1.72 (0.83-1.16) H 04/15/18 07:45 - Physical Exam Constitutional: no apparent distress, appears nourished, not in pain Eyes: anicteric sclera Ears, Nose, Mouth, Throat: moist mucous membranes Cardiovascular: regular rate and rhythym Respiratory: no respiratory distress, no rales or rhonchi, clear to auscultation Skin: warm, normal color Neurologic: AAOx3 Psychiatric: interacting appropriately, not anxious, not encephalopathic, thought process linear ICD10 Worksheet Patient Problems: Problems Problem Status Onset Cervical spinal stenosis Acute S/P cervical spinal fusion Acute
[2018-04-15] MEDS: LORazepam 1 MG/0.5 ML UDSYR PO PRN (21:51)
[2018-04-15] MEDS: INSULIN GLARGINE 100 UNITS/ML UNIT SC SCH (21:52)
[2018-04-15] MEDS: SENNOSIDES 17.6 MG/10 ML UDL PO SCH (21:52)
[2018-04-15] MEDS: traZODone 50 MG TAB PO PRN (23:29)
[2018-04-16] MEDS: ENOXAPARIN 100 MG/ML SYR SC SCH ×2 (07:55→19:41)
[2018-04-16] MEDS: ONDANSETRON DISINTEGRATING 4 MG TAB PO PRN ×3 (07:59→21:27)
[2018-04-16 09:03] LABS: INR 1.8 (0.83-1.16)
[2018-04-16] MEDS: metFORMIN HCL 500 MG TAB TUBE SCH ×2 (09:39→18:03)
[2018-04-16] MEDS: FLUOXETINE 4 MG/ML 30 ML BOTTLE TUBE SCH (09:39)
[2018-04-16] MEDS: LANSOPRAZOLE SUSP 30MG/10ML UDSYR (Adult) TUBE SCH (09:40)
[2018-04-16] MEDS: INSULIN LISPRO 100 UNIT/1 ML VIAL LOW SC SCH ×3 (09:41→16:43)
[2018-04-16] MEDS ORDERED: WARFARIN SODIUM 7.5 MG TAB PO ONE (16:00)
[2018-04-16] MEDS: traMADol 50 MG TAB TUBE PRN (18:18)
[2018-04-16] MEDS: traZODone 50 MG TAB PO SCH (18:19)
[2018-04-16] MEDS: LORazepam 1 MG/0.5 ML UDSYR PO PRN (19:41)
[2018-04-16] MEDS: SENNOSIDES 17.6 MG/10 ML UDL PO SCH (19:41)
[2018-04-16] MEDS: INSULIN GLARGINE 100 UNITS/ML UNIT SC SCH (21:01)
[2018-04-16] MEDS: traZODone 50 MG TAB PO PRN (22:31)
[2018-04-17 08:35] LABS: INR 1.82 (0.83-1.16); PROTIME(PATIENT) 21.2 SEC (12.0-15.0)
[2018-04-17] MEDS: FLUOXETINE 4 MG/ML 30 ML BOTTLE TUBE SCH (09:07)
[2018-04-17] MEDS: ENOXAPARIN 100 MG/ML SYR SC SCH ×2 (09:08→20:14)
[2018-04-17] MEDS: INSULIN LISPRO 100 UNIT/1 ML VIAL LOW SC SCH ×3 (09:09→17:46)
[2018-04-17] MEDS: LANSOPRAZOLE SUSP 30MG/10ML UDSYR (Adult) TUBE SCH (09:09)
[2018-04-17] MEDS: metFORMIN HCL 500 MG TAB TUBE SCH ×2 (09:09→18:18)
[2018-04-17] MEDS: ACETAMINOPHEN 650 MG/20.3 ML UDCUP TUBE PRN ×3 (09:24→23:41)
--- NOTE | 2018-04-17 09:56 | SOAPPROG ---
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 Rehabilitation stay was interrupted 03/09/2018 for fluid collection in neck. Returned to rehabilitation 03/21/2018 with Dobhoff tube for feeding after failing VFSS; returned to hospital 03/29/2018 with Dobhoff tube clogged. Failed VFSS again and had PEG tube placement. Return to rehabilitation 04/02/2018. Had chest CT at [facility] 2017 for hypoxia with diagnosis of pulmonary embolus; returned to rehabilitation 04/08/2018. Dysphagia. Continue n.p.o. and feeding per PEG. * Continue treatment per PRODUCE PRODUCTION TEAM MEMBER. * Responding to e-stim. Repeat VFSS week of 04/17/2018. Trials of puree without overt aspiration. 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 He reports that he was told by Neurosurgery that it could be months to years for this to fully resolve. * Functional independence measure 31 on 04/04/2018 (was 30 on 03/24/2018 before most recent hospitalization;. was 47 on first rehabilitation stay).; improved to 35 on 04/10/2018; 248 as of 04/17/2018. Assist of 1 for bed mobility, or 2 if fatigued. Transfers with minimal to moderate assist of 2 using a front wheeled walker and stand pivot technique. Ambulated 10 ft x 3 with a front wheeled walker and minimal assist of 2. Upper jaw body dressing requires maximal assist , lower body requires total assist of 2. Bathing and toileting required total assist. Using suspension sling to facilitate upper extremity function. * Continue PT and OT with the goal of modified independence for bed mobility, transfers, and wheelchair mobility, and a setup and possible assistance for dressing and bathing. Pulmonary embolus. Continue oxygen as needed. Continue warfarin, with dosing per pharmacy, and bridging with enoxaparin. GI. Has had constipation and vomiting; constipation was overcorrected and had diarrhea. Appears to be balanced at present as of 04/17/2018. * Intermittently has nausea after bolus feedings. Discussed with nursing and dietitian, 04/17/2018. Will initiate overnight feeding of 7 hr, and smaller boluses three times daily at usual meal times. Bilateral upper extremity edema. No signs or symptoms of upper extremity DVTs. Dependent position certainly contributes. Continue to attempt to elevate arms when possible. Diabetes mellitus type 2. * Increased insulin glargine 8 U starting 03/24/2018. Continue four times daily blood sugar checks with insulin sliding scale. * Restart metformin 04/04/2018 at 500 mg twice daily. Increased to 1000 mg twice daily starting 04/06/2018. Was discontinued when dysphagia worsened and he had Dobhoff feeding. Thyroid nodules seen on chest CT. TSH within normal limits. Follow up with Endocrinology after discharge. Dry mouth. * Opiates may contribute, as may cetirizine. * Discontinue cetirizine. Initiate Biotene mouth rinse. Symptom management. * No morphine used since 04/13/2018. Used tramadol less than every day. * Lorazepam 0.5 mg per tube q.4 hours p.r.n. muscle spasm, anxiety or insomnia generally has a dose at approximately 9:00 p.m... * Senna oral liquid per G-tube for opiate induced constipation; dose range 8.8 mg twice daily to 17.6 mg twice daily. * Bisacodyl suppository prn. * Sleeping well with trazodone and lorazepam. 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 Symptoms are resolved. No indication to continue acyclovir; discontinued 04/06/2018. Reduced breath sounds, right lung neely. Obtained chest x-ray 03/22/2018, read by radiologist as atelectasis versus patchy infiltrate. 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 He is not hypoxic, coughing or febrile. There is no specific treatment indicated. Continue incentive spirometry. History of hypertension, currently on no hypertensives. Blood pressure will be monitored and medications will be added if indicated. He was previously on lisinopril and triamterene/hydrochlorothiazide. Question of cellulitis at PEG site. * Resolved 04/10/2018 after 5 days of cephalexin. Dyslipidemia. Reviewed lipid panel, 04/04/2018. No indication for statin. Adjustment disorder with depressed mood. Continue fluoxetine 20 mg per tube. Prophylaxis. Continue enoxaparin 40 mg subcutaneous daily until his mobility considerably increases. Continue lansoprazole 30 mg oral liquid per tube daily. DISPOSITION: Attended staffing, 15 min. Discussed with case management, dietitian, nursing, PT, OT, PRODUCE PRODUCTION TEAM MEMBER making significant improvement but still seems unlikely to return home to single-level mobile home with his with several stairs to enter. Case Management will initiate Medicaid application in case he needs long-term care placement. Tentative discharge date set for 05/05/2018. FOLLOW-UP: With Neurosurgery after discharge from inpatient rehabilitation. Follow up with endocrinology regarding thyroid nodules. 04/17/18 11:49 Subjective: No complaints. Sleeping well. Not in pain. Notes little by little improvement in function. Objective: Vital Signs Temp Pulse Resp BP Pulse Ox 36.7 C 92 20 111/64 94 04/17/18 07:24 04/17/18 07:24 04/17/18 07:24 04/17/18 07:24 04/17/18 07:24 Laboratory Results 04/09/18 15:25 04/09/18 15:25 04/16/18 04/17/18 04/18/18 05:59 05:59 05:59 Intake Total 3280 2380 Output Total 1325 850 Balance 1955 1530 PT 21.2 SEC (12.0-15.0) H 04/17/18 06:30 INR 1.82 (0.83-1.16) H 04/17/18 06:30 - Time Spent With Patient Time Spent With Patient: Greater than 35 min floor time today, including more than 50% of time in coordination of care during staffing meeting, and counseling patient. Physical Exam - Physical Exam General Appearance: WD/WN, alert, no apparent distress Respiratory: normal breath sounds, No crackles, No rhonchi, No wheezing Cardiac/Chest: regular rate, rhythm, systolic murmur Skin: normal color, warm/dry Neuro/Psych: alert, normal mood/affect, oriented x 3, abnormal gait (Assist of 2 therapists for hand placement, advancing wheelchair and encouraging quadriceps activation. Shows L trendelelnberg and R foot drag.), motor weakness (Bilateral upper extremity) ICD10 Worksheet Patient Problems: Problems Problem Status Onset Cervical spinal stenosis Acute S/P cervical spinal fusion Acute
[2018-04-17] MEDS ORDERED: WARFARIN SODIUM 7.5 MG TAB PO ONE (16:00)
[2018-04-17] MEDS: traZODone 50 MG TAB PO SCH (18:18)
[2018-04-17] MEDS: traMADol 50 MG TAB TUBE PRN ×2 (18:18→23:41)
[2018-04-17] MEDS: INSULIN GLARGINE 100 UNITS/ML UNIT SC SCH (20:15)
[2018-04-17] MEDS: SENNOSIDES 17.6 MG/10 ML UDL PO SCH (20:16)
[2018-04-17] MEDS: LORazepam 1 MG/0.5 ML UDSYR PO PRN (21:06)
[2018-04-17] MEDS: traZODone 50 MG TAB PO PRN (23:40)
[2018-04-18 08:32] LABS: INR 2.58 (0.83-1.16); PROTIME(PATIENT) 27.6 SEC (12.0-15.0)
[2018-04-18] MEDS: ENOXAPARIN 100 MG/ML SYR SC SCH ×2 (09:16→21:02)
[2018-04-18] MEDS: ACETAMINOPHEN 650 MG/20.3 ML UDCUP TUBE PRN (09:17)
[2018-04-18] MEDS: metFORMIN HCL 500 MG TAB TUBE SCH ×3 (09:18→18:34)
[2018-04-18] MEDS: FLUOXETINE 4 MG/ML 30 ML BOTTLE TUBE SCH (09:18)
[2018-04-18] MEDS: LANSOPRAZOLE SUSP 30MG/10ML UDSYR (Adult) TUBE SCH (09:19)
[2018-04-18] MEDS: INSULIN LISPRO 100 UNIT/1 ML VIAL LOW SC SCH ×3 (09:39→18:01)
--- NOTE | 2018-04-18 10:30 | SOAPPROG ---
ERMELINDA Progress Note Assessment/Plan: 78-year-old male with cervical spine myelopathy status post ACDF of C3 through C6, complicated by dysphagia. Complicated course. Today's update: Regarding his dysphagia, he was noted to have some redness surrounding his percutaneous gastrostomy tube at the location of the T tacks. I reviewed medical records from [facility] by Dr. Grigsby in IR who stated that the T tack should be removed in 2-3 weeks after placement which is now. Sutured clipped and devices removed. Percutaneous gastrostomy tube left in place. There was considerable maceration underneath the devices. Also discussed with the patient and staff nonpharmacologic strategies for agitation management in the afternoons including distraction, fine motor skill rehabilitation, or therapy sessions. Also discussed with social work additional counseling possibilities. INR is 2.58 today, up from 1.82, appreciate help from pharmacy for anticoagulation management. Left thumb pain and swelling most consistent with osteoarthritis, scheduling Tylenol as well as encouraging rest and ice. Continue to monitor all these issues. Neurological function improved since I saw him last. Blood sugar stable at current regimen. A total of 40 min was spent on the floor in the care of the patient, the majority of which was spent in the counseling and coordination of care regarding issues above, especially PEG tube management as well as agitation management strategies. Additional issues reviewed without change today include additional rehabilitation plan, GI prophylaxis, bilateral upper limb edema, thyroid nodules on chest CT, dry mouth, HSV lesion, hemidiaphragm, hypertension, dyslipidemia, adjustment disorder. 04/18/18 10:25 Subjective: Chief complaint: PEG tube redness and afternoon anxiety No acute events overnight. Patient denies any new shortness of breath or chest pain, no new numbness, tingling, or weakness. Staff reports that he is more anxious in the afternoons, requesting lots of care during that time. Notes that is partly because he can't move his arms and there encouraging his arm use. Staff also notes some redness around the percutaneous gastrostomy tube. Staff notes it is improved from previous days. They are recommending additional lorazepam. Objective: Vital Signs Temp Pulse Resp BP Pulse Ox 36.4 C 67 16 107/64 94 04/18/18 05:44 04/18/18 05:44 04/18/18 05:44 04/18/18 05:44 04/18/18 05:44 Laboratory Results 04/09/18 15:25 04/09/18 15:25 04/17/18 04/18/18 04/19/18 05:59 05:59 05:59 Intake Total 2380 2147 Output Total 850 1500 Balance 1530 647 PT 27.6 SEC (12.0-15.0) H 04/18/18 06:30 INR 2.58 (0.83-1.16) H 04/18/18 06:30 Physical Exam - Physical Exam General Appearance: WD/WN, alert, no apparent distress, other (Sitting up in a chair) EENT: No scleral icterus (R), No scleral icterus (L) Respiratory: normal breath sounds, No respiratory distress, No accessory muscle use, No retractions Cardiac/Chest: normal peripheral pulses, regular rate, rhythm, edema (Left upper limb in particular) Abdomen: other (Percutaneous gastrostomy tube in place as well as 3 t tacks with some mild redness underneath it. No discharge. Nontender, no fluctuance or mass.) Skin: normal color, warm/dry, other (Abdominal exam above), No cyanosis, No diaphoresis Extremities: other (Tenderness to palpation at the saddle joint of the left thumb, mild swelling, he notes pain with movement but not at rest. No pain with light touch) Neuro/Psych: alert, normal mood/affect, oriented x 3, motor weakness (Bilateral hands with approximately 3 finger labor representative strength on the left, 4 on the right, approximately 2/5 in the biceps on the right. Able to fully open hands.), No depressed affect ICD10 Worksheet Patient Problems: Problems Problem Status Onset Cervical spinal stenosis Acute S/P cervical spinal fusion Acute
[2018-04-18] MEDS: ACETAMINOPHEN 650 MG/20.3 ML UDCUP TUBE SCH ×2 (15:37→20:58)
[2018-04-18] MEDS ORDERED: WARFARIN SODIUM 4 MG TAB PO ONE (16:00)
[2018-04-18] MEDS: METHYL SALICYLATE/MENTHOL OINTMENT TP PRN ×2 (16:18→21:19)
[2018-04-18] MEDS: traZODone 50 MG TAB PO SCH (18:30)
[2018-04-18] MEDS: traMADol 50 MG TAB TUBE PRN (18:31)
[2018-04-18] MEDS: INSULIN GLARGINE 100 UNITS/ML UNIT SC SCH (21:02)
[2018-04-18] MEDS: SENNOSIDES 17.6 MG/10 ML UDL PO SCH (21:02)
[2018-04-18] MEDS: LORazepam 1 MG/0.5 ML UDSYR PO PRN (21:46)
[2018-04-19] MEDS: traZODone 50 MG TAB PO PRN (00:29)
[2018-04-19] MEDS: ACETAMINOPHEN 650 MG/20.3 ML UDCUP TUBE SCH ×3 (05:18→20:15)
[2018-04-19] MEDS: FLUOXETINE 4 MG/ML 30 ML BOTTLE TUBE SCH (07:53)
[2018-04-19] MEDS: INSULIN LISPRO 100 UNIT/1 ML VIAL LOW SC SCH ×3 (07:58→18:05)
[2018-04-19] MEDS: LANSOPRAZOLE SUSP 30MG/10ML UDSYR (Adult) TUBE SCH (08:03)
[2018-04-19] MEDS: metFORMIN HCL 500 MG TAB TUBE SCH ×2 (08:06→18:17)
[2018-04-19] MEDS: ONDANSETRON DISINTEGRATING 4 MG TAB PO PRN (08:33)
--- NOTE | 2018-04-19 11:48 | SOAPPROG ---
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 Rehabilitation stay was interrupted 03/09/2018 for fluid collection in neck. Returned to rehabilitation 03/21/2018 with Dobhoff tube for feeding after failing VFSS; returned to hospital 03/29/2018 with Dobhoff tube clogged. Failed VFSS again and had PEG tube placement. Return to rehabilitation 04/02/2018. Had chest CT at [facility] 2017 for hypoxia with diagnosis of pulmonary embolus; returned to rehabilitation 04/08/2018. Dysphagia. Continue n.p.o. and feeding per PEG. * Continue treatment per CAR DUMPER OPERATOR. * Responding to e-stim. Repeat VFSS 04/26/2018. Trials of puree without overt aspiration. 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 He reports that he was told by Neurosurgery that it could be months to years for this to fully resolve. * Functional independence measure 31 on 04/04/2018 (was 30 on 03/24/2018 before most recent hospitalization;. was 47 on first rehabilitation stay).; improved to 35 on 04/10/2018; to 48 as of 04/17/2018. Assist of 1 for bed mobility, or 2 if fatigued. Transfers with minimal to moderate assist of 2 using a front wheeled walker and stand pivot technique. Ambulated 10 ft x 3 with a front wheeled walker and minimal assist of 2. Upper jaw body dressing requires maximal assist, lower body requires total assist of 2. Bathing and toileting required total assist. Using suspension sling to facilitate upper extremity function. * Continue PT and OT with the goal of modified independence for bed mobility, transfers, and wheelchair mobility, and a setup and possible assistance for dressing and bathing. Pulmonary embolus. Continue oxygen as needed. Continue warfarin, with dosing per pharmacy, and bridging with enoxaparin. GI. Has had constipation and vomiting; constipation was overcorrected and had diarrhea. Appears to be balanced at present as of 04/17/2018. * Intermittently has nausea after bolus feedings. Discussed with nursing and dietitian, 04/17/2018. Will initiate overnight feeding of 7 hr, and smaller boluses three times daily at usual meal times. Bilateral upper extremity edema. No signs or symptoms of upper extremity DVTs. Dependent position certainly contributes. Continue to attempt to elevate arms when possible. Diabetes mellitus type 2. * Increased insulin glargine 8 U starting 03/24/2018; decreasd to 6 U starting and to 4 units starting 04/19/2018. Continue four times daily blood sugar checks with insulin sliding scale. Management is complicated by overnight tube feeding plus three times daily bolus feedings * Restarted metformin 04/04/2018 at 500 mg twice daily. Increased to 1000 mg twice daily starting 04/06/2018. Was discontinued when dysphagia worsened and he had Dobhoff feeding. Thyroid nodules seen on chest CT. TSH within normal limits. Follow up with Endocrinology after discharge. Dry mouth. * Opiates may contribute, as may cetirizine. * Discontinue cetirizine. Initiate Biotene mouth rinse. Symptom management. * No morphine used since 04/13/2018. Used tramadol less than every day. * Lorazepam 0.5 mg per tube q.4 hours p.r.n. muscle spasm, anxiety or insomnia generally has a dose at approximately 9:00 p.m... * Senna oral liquid per G-tube for opiate induced constipation; dose range 8.8 mg twice daily to 17.6 mg twice daily. * Bisacodyl suppository prn. * Sleeping well with trazodone and lorazepam. 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 Symptoms are resolved. No indication to continue acyclovir; discontinued 04/06/2018. Reduced breath sounds, right lung neely. Obtained chest x-ray 03/22/2018, read by radiologist as atelectasis versus patchy infiltrate. 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 He is not hypoxic, coughing or febrile. There is no specific treatment indicated. Continue incentive spirometry. History of hypertension, currently on no hypertensives. Blood pressure will be monitored and medications will be added if indicated. He was previously on lisinopril and triamterene/hydrochlorothiazide. Question of cellulitis at PEG site. * Resolved 04/10/2018 after 5 days of cephalexin. * Exam 04/19/2018 consistent with possible yeast. Initiate miconazole barrier cream preparation. Dyslipidemia. Reviewed lipid panel, 04/04/2018. No indication for statin. Adjustment disorder with depressed mood. Continue fluoxetine 20 mg per tube. Prophylaxis. Continue enoxaparin 40 mg subcutaneous daily until his mobility considerably increases. Continue lansoprazole 30 mg oral liquid per tube daily. DISPOSITION: Making significant improvement but still seems unlikely to return home to single-level mobile home with his with several stairs to enter. Case Management will initiate Medicaid application in case he needs long-term care placement. Tentative discharge date set for 05/05/2018. FOLLOW-UP: With Neurosurgery after discharge from inpatient rehabilitation. Follow up with endocrinology regarding thyroid nodules. 04/19/18 11:38 Subjective: No pain at PEG tube site but has some irritation when the tube is moved. Otherwise without complaints. No fevers or chills, no cough or dyspnea. Objective: Vital Signs Temp Pulse Resp BP Pulse Ox 36.6 C 91 16 125/72 H 91 L 04/19/18 06:29 04/19/18 06:29 04/19/18 06:29 04/19/18 06:29 04/19/18 06:29 Laboratory Results 04/09/18 15:25 04/09/18 15:25 04/18/18 04/19/18 04/20/18 05:59 05:59 05:59 Intake Total 2147 2300 Output Total 1500 1225 Balance 647 1075 PT REJ 04/19/18 06:00 INR REJ 04/19/18 06:00 Physical Exam - Physical Exam General Appearance: WD/WN, alert, no apparent distress Respiratory: No respiratory distress, No accessory muscle use Skin: normal color, warm/dry, other (Peg tube site with approximately 1 cm area of mild erythema with a single satellite lesion within the 1 cm area to the left of the PEG tube. Brownish drainage on dressing.) Neuro/Psych: alert, normal mood/affect, oriented x 3, motor weakness (Bilateral biceps) ICD10 Worksheet Patient Problems: Problems Problem Status Onset Cervical spinal stenosis Acute S/P cervical spinal fusion Acute
[2018-04-19 12:53] LABS: INR 2.74 (0.83-1.16); PROTIME(PATIENT) 28.9 SEC (12.0-15.0)
[2018-04-19] MEDS ORDERED: WARFARIN SODIUM 4 MG TAB PO ONE (16:00)
[2018-04-19] MEDS: METHYL SALICYLATE/MENTHOL OINTMENT TP PRN ×2 (18:06→20:16)
[2018-04-19] MEDS: traZODone 50 MG TAB TUBE SCH (18:18)
[2018-04-19] MEDS: NYSTATIN POWDER 15 GM BTL TP PRN (20:02)
[2018-04-19] MEDS: SENNOSIDES 17.6 MG/10 ML UDL PO SCH (20:03)
[2018-04-19] MEDS: INSULIN GLARGINE 100 UNITS/ML UNIT SC SCH ×2 (21:20→22:03)
[2018-04-19] MEDS: LORazepam 1 MG/0.5 ML UDSYR TUBE PRN (21:58)
[2018-04-19] MEDS: MICONAZOLE NITRATE 2% 14 GM CREAM TP SCH (21:58)
[2018-04-19] MEDS: traZODone 50 MG TAB TUBE PRN (23:24)
[2018-04-20] MEDS: ACETAMINOPHEN 650 MG/20.3 ML UDCUP TUBE SCH ×3 (05:52→20:55)
[2018-04-20] MEDS: INSULIN LISPRO 100 UNIT/1 ML VIAL LOW SC SCH ×3 (07:39→17:15)
[2018-04-20] MEDS: metFORMIN HCL 500 MG TAB TUBE SCH ×2 (07:40→17:57)
[2018-04-20] MEDS: LANSOPRAZOLE SUSP 30MG/10ML UDSYR (Adult) TUBE SCH (07:58)
[2018-04-20] MEDS: FLUOXETINE 4 MG/ML 30 ML BOTTLE TUBE SCH (07:59)
[2018-04-20] MEDS: ONDANSETRON DISINTEGRATING 4 MG TAB PO PRN (08:02)
[2018-04-20 08:08] LABS: INR 2.19 (0.83-1.16); PROTIME(PATIENT) 24.4 SEC (12.0-15.0)
[2018-04-20] MEDS: MICONAZOLE NITRATE 2% 14 GM CREAM TP SCH ×2 (09:51→21:00)
--- NOTE | 2018-04-20 12:00 | SOAPPROG ---
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 Rehabilitation stay was interrupted 03/09/2018 for fluid collection in neck. Returned to rehabilitation 03/21/2018 with Dobhoff tube for feeding after failing VFSS; returned to hospital 03/29/2018 with Dobhoff tube clogged. Failed VFSS again and had PEG tube placement. Return to rehabilitation 04/02/2018. Had chest CT at [facility] 2017 for hypoxia with diagnosis of pulmonary embolus; returned to rehabilitation 04/08/2018. Dysphagia. Continue n.p.o. and feeding per PEG. * Continue treatment per GUARDIAN FAMILY MEMBER. * Responding to e-stim. Repeat VFSS 04/26/2018. Trials of puree without overt aspiration. 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 He reports that he was told by Neurosurgery that it could be months to years for this to fully resolve. * Functional independence measure 31 on 04/04/2018 (was 30 on 03/24/2018 before most recent hospitalization;. was 47 on first rehabilitation stay).; improved to 35 on 04/10/2018; to 48 as of 04/17/2018. Assist of 1 for bed mobility, or 2 if fatigued. Transfers with minimal to moderate assist of 2 using a front wheeled walker and stand pivot technique. Ambulated 10 ft x 3 with a front wheeled walker and minimal assist of 2. Upper jaw body dressing requires maximal assist, lower body requires total assist of 2. Bathing and toileting required total assist. Using suspension sling to facilitate upper extremity function. * Continue PT and OT with the goal of modified independence for bed mobility, transfers, and wheelchair mobility, and a setup and possible assistance for dressing and bathing. Pulmonary embolus. Continue oxygen as needed. Continue warfarin, with dosing per pharmacy, and bridging with enoxaparin. GI. Has had constipation and vomiting; constipation was overcorrected and had diarrhea. Appears to be balanced at present as of 04/17/2018. * Intermittently has nausea after bolus feedings. Discussed with nursing and dietitian, 04/17/2018. Doing well with overnight feeding of 7 hr, and smaller boluses three times daily at usual meal times. Bilateral upper extremity edema. No signs or symptoms of upper extremity DVTs. Dependent position certainly contributes. Continue to attempt to elevate arms when possible. Diabetes mellitus type 2. * Increased insulin glargine 8 U starting 03/24/2018; decreasd to 6 U starting and to 4 units starting 04/19/2018. Continue four times daily blood sugar checks with insulin sliding scale. Management is complicated by overnight tube feeding plus three times daily bolus feedings * Restarted metformin 04/04/2018 at 500 mg twice daily. Increased to 1000 mg twice daily starting 04/06/2018. Was discontinued when dysphagia worsened and he had Dobhoff feeding. Question of cellulitis at PEG site. * Resolved 04/10/2018 after 5 days of cephalexin. * Exam 04/19/2018 consistent with possible yeast. Initiated miconazole barrier cream preparation. Improving. Left hand arthralgias. Exam 04/20/2018 not consistent with gout. Not interfering significantly with function. Trial of ice 10 min at a time 3 times a day as needed. Continue acetaminophen and tramadol as needed. Thyroid nodules seen on chest CT. TSH within normal limits. Follow up with Endocrinology after discharge. Dry mouth. * Opiates may contribute, as may cetirizine. * Discontinue cetirizine. Initiate Biotene mouth rinse. Symptom management. * No morphine used since 04/13/2018. Used tramadol less than every day; last use 04/18/2018. * Lorazepam 0.5 mg per tube q.4 hours p.r.n. muscle spasm, anxiety or insomnia generally has a dose at approximately 9:00 p.m... * Senna oral liquid per G-tube for opiate induced constipation; dose range 8.8 mg twice daily to 17.6 mg twice daily. * Bisacodyl suppository prn. * Sleeping well with trazodone and lorazepam. 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 Symptoms are resolved. No indication to continue acyclovir; discontinued 04/06/2018. Reduced breath sounds, right lung neely. Obtained chest x-ray 03/22/2018, read by radiologist as atelectasis versus patchy infiltrate. 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 He is not hypoxic, coughing or febrile. There is no specific treatment indicated. Continue incentive spirometry. History of hypertension, currently on no hypertensives. Blood pressure will be monitored and medications will be added if indicated. He was previously on lisinopril and triamterene/hydrochlorothiazide. Dyslipidemia. Reviewed lipid panel, 04/04/2018. No indication for statin. Adjustment disorder with depressed mood. Continue fluoxetine 20 mg per tube. Prophylaxis. Continue enoxaparin 40 mg subcutaneous daily until his mobility considerably increases. Continue lansoprazole 30 mg oral liquid per tube daily. DISPOSITION: Making significant improvement but still seems unlikely to return home to single-level mobile home with his with several stairs to enter. Case Management will initiate Medicaid application in case he needs long-term care placement. Tentative discharge date set for 05/05/2018. FOLLOW-UP: With Neurosurgery after discharge from inpatient rehabilitation. Follow up with endocrinology regarding thyroid nodules. 04/19/18 11:38 04/20/18 13:20 Subjective: Complains of pain in the left thumb base and the left ring finger. Hurts especially if it gets bumped or wrong way. Pain is not interfering with his ability to grasp a walker or do other activities with therapies. Otherwise doing well and without complaints. Nurses have noted some diarrhea. He has not used tramadol for 2 days. Objective: Vital Signs Temp Pulse Resp BP Pulse Ox 36.7 C 100 16 108/68 92 04/20/18 07:10 04/20/18 07:10 04/20/18 07:10 04/20/18 07:10 04/20/18 07:10 Laboratory Results 04/09/18 15:25 04/09/18 15:25 04/19/18 04/20/18 04/21/18 05:59 05:59 05:59 Intake Total 2300 2150 Output Total 1225 1490 Balance 1075 660 PT 24.4 SEC (12.0-15.0) H 04/20/18 06:25 INR 2.19 (0.83-1.16) H 04/20/18 06:25 Physical Exam - Physical Exam General Appearance: WD/WN, alert, no apparent distress Respiratory: No respiratory distress, No accessory muscle use Skin: normal color, warm/dry, other (Mild erythema at PEG site and to left of PEG where a disc fastener was present) Extremities: other (Tender at MCP joint of left thumb and at PIP joint of left 4th digit) Neuro/Psych: alert, normal mood/affect, oriented x 3, motor weakness (Bilateral biceps) ICD10 Worksheet Patient Problems: Problems Problem Status Onset Cervical spinal stenosis Acute S/P cervical spinal fusion Acute
[2018-04-20] MEDS ORDERED: WARFARIN SODIUM 3 MG TAB PO ONE (16:00)
[2018-04-20] MEDS: traZODone 50 MG TAB TUBE SCH (17:57)
[2018-04-20] MEDS: METHYL SALICYLATE/MENTHOL OINTMENT TP PRN ×2 (18:10→20:44)
[2018-04-20] MEDS: traMADol 50 MG TAB TUBE PRN (18:22)
[2018-04-20] MEDS: LORazepam 1 MG/0.5 ML UDSYR TUBE PRN (21:03)
[2018-04-20] MEDS: INSULIN GLARGINE 100 UNITS/ML UNIT SC SCH (21:13)
[2018-04-20] MEDS: traZODone 50 MG TAB TUBE PRN (23:37)
[2018-04-21] MEDS: ACETAMINOPHEN 650 MG/20.3 ML UDCUP TUBE SCH ×5 (05:32→20:04)
[2018-04-21] MEDS: ONDANSETRON DISINTEGRATING 4 MG TAB PO PRN (05:32)
[2018-04-21] MEDS: MICONAZOLE NITRATE 2% 14 GM CREAM TP SCH (08:02)
[2018-04-21] MEDS: LANSOPRAZOLE SUSP 30MG/10ML UDSYR (Adult) TUBE SCH (08:03)
[2018-04-21] MEDS: metFORMIN HCL 500 MG TAB TUBE SCH ×2 (08:03→18:09)
[2018-04-21] MEDS: INSULIN LISPRO 100 UNIT/1 ML VIAL LOW SC SCH ×3 (08:04→18:35)
[2018-04-21] MEDS: FLUOXETINE 4 MG/ML 30 ML BOTTLE TUBE SCH (08:04)
[2018-04-21 08:44] LABS: INR 1.93 (0.83-1.16); PROTIME(PATIENT) 22.1 SEC (12.0-15.0)
--- NOTE | 2018-04-21 12:41 | SOAPPROG ---
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 Rehabilitation stay was interrupted 03/09/2018 for fluid collection in neck. Returned to rehabilitation 03/21/2018 with Dobhoff tube for feeding after failing VFSS; returned to hospital 03/29/2018 with Dobhoff tube clogged. Failed VFSS again and had PEG tube placement. Return to rehabilitation 04/02/2018. Had chest CT at [facility] 2017 for hypoxia with diagnosis of pulmonary embolus; returned to rehabilitation 04/08/2018. Dysphagia. Continue n.p.o. and feeding per PEG. * Continue treatment per CUTTER OPERATOR HELPER. * Responding to e-stim. Repeat VFSS 04/26/2018. Trials of puree without overt aspiration. Ate an omelet for breakfast with CUTTER OPERATOR HELPER today, 04/21/2018. 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 He reports that he was told by Neurosurgery that it could be months to years for this to fully resolve. * Functional independence measure 31 on 04/04/2018 (was 30 on 03/24/2018 before most recent hospitalization;. was 47 on first rehabilitation stay).; improved to 35 on 04/10/2018; to 48 as of 04/17/2018. Assist of 1 for bed mobility, or 2 if fatigued. Transfers with minimal to moderate assist of 2 using a front wheeled walker and stand pivot technique. Ambulated 10 ft x 3 with a front wheeled walker and minimal assist of 2. Upper jaw body dressing requires maximal assist, lower body requires total assist of 2. Bathing and toileting required total assist. Using suspension sling to facilitate upper extremity function. * Continue PT and OT with the goal of modified independence for bed mobility, transfers, and wheelchair mobility, and a setup and possible assistance for dressing and bathing. Pulmonary embolus. Continue oxygen as needed. Continue warfarin, with dosing per pharmacy, and bridging with enoxaparin. GI. Has had constipation and vomiting; constipation was overcorrected and had diarrhea. Appears to be balanced at present as of 04/17/2018. * Intermittently has nausea after bolus feedings. Discussed with nursing and dietitian, 04/17/2018. Doing well with overnight feeding of 7 hr, and smaller boluses three times daily at usual meal times. Bilateral upper extremity edema. No signs or symptoms of upper extremity DVTs. Dependent position certainly contributes. Continue to attempt to elevate arms when possible. Diabetes mellitus type 2. * Increased insulin glargine 8 U starting 03/24/2018; decreasd to 6 U starting and to 4 units starting 04/19/2018. Continue four times daily blood sugar checks with insulin sliding scale. Management is complicated by overnight tube feeding plus three times daily bolus feedings * Restarted metformin 04/04/2018 at 500 mg twice daily. Increased to 1000 mg twice daily starting 04/06/2018. Was discontinued when dysphagia worsened and he had Dobhoff feeding. Question of cellulitis at PEG site. * Resolved 04/10/2018 after 5 days of cephalexin. * Exam 04/19/2018 consistent with possible yeast. Initiated miconazole barrier cream preparation. No improvement. D/C 04/21/2018. * Initiate cephalexin 500 mg p.o. Four times daily, schedule for 7 days, Examine daily for improvement. Left hand arthralgias. Exam 04/20/2018 not consistent with gout. Not interfering significantly with function. Trial of ice 10 min at a time 3 times a day as needed. Continue acetaminophen and tramadol as needed. Thyroid nodules seen on chest CT. TSH within normal limits. Follow up with Endocrinology after discharge. Dry mouth. * Opiates may contribute, as may cetirizine. * Discontinue cetirizine. Initiate Biotene mouth rinse. Symptom management. * No morphine used since 04/13/2018. Used tramadol less than every day; last use 04/18/2018. * Lorazepam 0.5 mg per tube q.4 hours p.r.n. muscle spasm, anxiety or insomnia generally has a dose at approximately 9:00 p.m... * Senna oral liquid per G-tube for opiate induced constipation; dose range 8.8 mg twice daily to 17.6 mg twice daily. * Bisacodyl suppository prn. * Sleeping well with trazodone and lorazepam. 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 Symptoms are resolved. No indication to continue acyclovir; discontinued 04/06/2018. Reduced breath sounds, right lung neely. Obtained chest x-ray 03/22/2018, read by radiologist as atelectasis versus patchy infiltrate. 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 He is not hypoxic, coughing or febrile. There is no specific treatment indicated. Continue incentive spirometry. History of hypertension, currently on no hypertensives. Blood pressure will be monitored and medications will be added if indicated. He was previously on lisinopril and triamterene/hydrochlorothiazide. Dyslipidemia. Reviewed lipid panel, 04/04/2018. No indication for statin. Adjustment disorder with depressed mood. Continue fluoxetine 20 mg per tube. Prophylaxis. Continue enoxaparin 40 mg subcutaneous daily until his mobility considerably increases. Continue lansoprazole 30 mg oral liquid per tube daily. DISPOSITION: Making significant improvement but still seems unlikely to return home to single-level mobile home with his with several stairs to enter. Case Management will initiate Medicaid application in case he needs long-term care placement. Tentative discharge date set for 05/05/2018. FOLLOW-UP: With Neurosurgery after discharge from inpatient rehabilitation. Follow up with endocrinology regarding thyroid nodules. 04/21/18 12:36 Subjective: Continues to have pain and tenderness to the left of his PEG site. No more diarrhea. No fevers or chills, no cough or dyspnea. Otherwise without complaints. Objective: Vital Signs Temp Pulse Resp BP Pulse Ox 37.1 C 101 H 20 108/70 92 04/21/18 08:00 04/21/18 08:00 04/21/18 08:00 04/21/18 08:00 04/21/18 08:00 Laboratory Results 04/09/18 15:25 04/09/18 15:25 04/20/18 04/21/18 04/22/18 05:59 05:59 05:59 Intake Total 2150 2267 Output Total 1490 1840 150 Balance 660 427 -150 PT 22.1 SEC (12.0-15.0) H 04/21/18 06:25 INR 1.93 (0.83-1.16) H 04/21/18 06:25 Physical Exam - Physical Exam General Appearance: WD/WN, alert, no apparent distress Respiratory: No respiratory distress, No accessory muscle use Skin: normal color, warm/dry, other (Erythematous patch approximately 1 cm, to the left of PEG tube site, with O2 mm area of open skin at the Center and serosanguineous discharge.) Neuro/Psych: alert, normal mood/affect, oriented x 3, motor weakness (Bilateral biceps) ICD10 Worksheet Patient Problems: Problems Problem Status Onset Cervical spinal stenosis Acute S/P cervical spinal fusion Acute
[2018-04-21] MEDS ORDERED: CEPHALEXIN 500 MG CAP PO SCH (18:00)
[2018-04-21] MEDS: CEPHALEXIN 250 MG/5 ML BULK BOTTLE TUBE SCH ×2 (18:08→23:31)
[2018-04-21] MEDS: traZODone 50 MG TAB TUBE SCH (18:09)
[2018-04-21] MEDS: ARNICA TP SCH ×2 (18:09→21:50)
[2018-04-21] MEDS: WARFARIN SODIUM 3 MG TAB TUBE SCH (18:09)
[2018-04-21] MEDS: METHYL SALICYLATE/MENTHOL OINTMENT TP PRN (21:50)
[2018-04-21] MEDS: INSULIN GLARGINE 100 UNITS/ML UNIT SC SCH (21:53)
[2018-04-21] MEDS: traZODone 50 MG TAB TUBE PRN (23:29)
[2018-04-22] MEDS: ONDANSETRON DISINTEGRATING 4 MG TAB PO PRN (01:54)
[2018-04-22] MEDS: ACETAMINOPHEN 650 MG/20.3 ML UDCUP TUBE SCH ×3 (06:03→22:02)
[2018-04-22] MEDS: CEPHALEXIN 250 MG/5 ML BULK BOTTLE TUBE SCH ×4 (06:04→23:38)
[2018-04-22] MEDS: INSULIN LISPRO 100 UNIT/1 ML VIAL LOW SC SCH ×3 (07:59→18:35)
[2018-04-22 08:50] LABS: INR 2.05 (0.83-1.16); PROTIME(PATIENT) 23.2 SEC (12.0-15.0)
[2018-04-22] MEDS: metFORMIN HCL 500 MG TAB TUBE SCH ×2 (09:26→18:39)
[2018-04-22] MEDS: LANSOPRAZOLE SUSP 30MG/10ML UDSYR (Adult) TUBE SCH (09:27)
[2018-04-22] MEDS: FLUOXETINE 4 MG/ML 30 ML BOTTLE TUBE SCH (09:30)
[2018-04-22] MEDS: ARNICA TP SCH ×3 (09:30→22:03)
--- NOTE | 2018-04-22 10:33 | SOAPPROG ---
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 Rehabilitation stay was interrupted 03/09/2018 for fluid collection in neck. Returned to rehabilitation 03/21/2018 with Dobhoff tube for feeding after failing VFSS; returned to hospital 03/29/2018 with Dobhoff tube clogged. Failed VFSS again and had PEG tube placement. Return to rehabilitation 04/02/2018. Had chest CT at [facility] 2017 for hypoxia with diagnosis of pulmonary embolus; returned to rehabilitation 04/08/2018. Dysphagia. Continue n.p.o. and feeding per PEG. * Continue treatment per LIFE SKILLS WORKER. * Responding to e-stim. Repeat VFSS 04/26/2018. Trials of puree without overt aspiration. Ate EGGS FOR BFAST THIS AM W/O DIFFICULTIES. . 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 He reports that he was told by Neurosurgery that it could be months to years for this to fully resolve. NO UE MOTOR EXAM IMPROVEMENT PER TODAY'S EXAM * Functional independence measure 31 on 04/04/2018 (was 30 on 03/24/2018 before most recent hospitalization;. was 47 on first rehabilitation stay).; improved to 35 on 04/10/2018; to 48 as of 04/17/2018. Assist of 1 for bed mobility, or 2 if fatigued. Transfers with minimal to moderate assist of 2 using a front wheeled walker and stand pivot technique. Ambulated 10 ft x 3 with a front wheeled walker and minimal assist of 2. Upper jaw body dressing requires maximal assist, lower body requires total assist of 2. Bathing and toileting required total assist. Using suspension sling to facilitate upper extremity function. * Continue PT and OT with the goal of modified independence for bed mobility, transfers, and wheelchair mobility, and a setup and possible assistance for dressing and bathing. Pulmonary embolus. Continue oxygen as needed. Continue warfarin, with dosing per pharmacy, and bridging with enoxaparin. GI. Has had constipation and vomiting; constipation was overcorrected and had diarrhea. Appears to be balanced at present as of 04/17/2018. * Intermittently has nausea after bolus feedings. Discussed with nursing and dietitian, 04/17/2018. Doing well with overnight feeding of 7 hr, and smaller boluses three times daily at usual meal times. Bilateral upper extremity edema. No signs or symptoms of upper extremity DVTs. Dependent position certainly contributes. Continue to attempt to elevate arms when possible. Diabetes mellitus type 2. * Increased insulin glargine 8 U starting 03/24/2018; decreasd to 6 U starting and to 4 units starting 04/19/2018. Continue four times daily blood sugar checks with insulin sliding scale. Management is complicated by overnight tube feeding plus three times daily bolus feedings * Restarted metformin 04/04/2018 at 500 mg twice daily. Increased to 1000 mg twice daily starting 04/06/2018. Was discontinued when dysphagia worsened and he had Dobhoff feeding. BLOOD GLC THIS AM 145 Question of cellulitis at PEG site. Nursing reports improvement in peg site compared to yesterday. * Resolved 04/10/2018 after 5 days of cephalexin. * Exam 04/19/2018 consistent with possible yeast. Initiated miconazole barrier cream preparation. No improvement. D/C 04/21/2018. * Initiate cephalexin 500 mg p.o. Four times daily, schedule for 7 days, Examine daily for improvement. Left hand arthralgias. Exam 04/20/2018 not consistent with gout. Not interfering significantly with function. Trial of ice 10 min at a time 3 times a day as needed. Continue acetaminophen and tramadol as needed. Thyroid nodules seen on chest CT. TSH within normal limits. Follow up with Endocrinology after discharge. Dry mouth. * Opiates may contribute, as may cetirizine. * Discontinue cetirizine. Initiate Biotene mouth rinse. Symptom management. * No morphine used since 04/13/2018. Used tramadol less than every day; last use 04/18/2018. * Lorazepam 0.5 mg per tube q.4 hours p.r.n. muscle spasm, anxiety or insomnia generally has a dose at approximately 9:00 p.m... * Senna oral liquid per G-tube for opiate induced constipation; dose range 8.8 mg twice daily to 17.6 mg twice daily. * Bisacodyl suppository prn. * Sleeping well with trazodone and lorazepam. 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 Symptoms are resolved. No indication to continue acyclovir; discontinued 04/06/2018. Reduced breath sounds, right lung neely. Obtained chest x-ray 03/22/2018, read by radiologist as atelectasis versus patchy infiltrate. 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 He is not hypoxic, coughing or febrile. There is no specific treatment indicated. Continue incentive spirometry. History of hypertension, currently on no hypertensives. Blood pressure will be monitored and medications will be added if indicated. He was previously on lisinopril and triamterene/hydrochlorothiazide. Dyslipidemia. Reviewed lipid panel, 04/04/2018. No indication for statin. Adjustment disorder with depressed mood. Continue fluoxetine 20 mg per tube. Prophylaxis. Continue enoxaparin 40 mg subcutaneous daily until his mobility considerably increases. Continue lansoprazole 30 mg oral liquid per tube daily. DISPOSITION: Making significant improvement but still seems unlikely to return home to single-level mobile home with his with several stairs to enter. Case Management will initiate Medicaid application in case he needs long-term care placement. Tentative discharge date set for 05/05/2018. FOLLOW-UP: With Neurosurgery after discharge from inpatient rehabilitation. Follow up with endocrinology regarding thyroid nodules. 04/22/18 10:30 Subjective: NO C/O THIS AM Objective: Vital Signs Temp Pulse Resp BP Pulse Ox 36.6 C 98 18 117/68 91 L 04/22/18 07:00 04/22/18 07:00 04/22/18 07:00 04/22/18 07:00 04/22/18 07:00 Laboratory Results 04/09/18 15:25 04/09/18 15:25 04/21/18 04/22/18 04/23/18 05:59 05:59 05:59 Intake Total 2267 2075 Output Total 1840 1175 50 Balance 427 900 -50 PT 23.2 SEC (12.0-15.0) H 04/22/18 06:30 INR 2.05 (0.83-1.16) H 04/22/18 06:30 Physical Exam - Physical Exam General Appearance: WD/WN, alert, no apparent distress Respiratory: lungs clear, normal breath sounds Cardiac/Chest: No edema Abdomen: non-tender, soft Skin: other (PEG SITE W/O DRAINAGE, NURSING REPORTS LESS ERYTHEMA THEN YESTERDAY. ) Neuro/Psych: other (NO CHANGE IN ue motor exam) ICD10 Worksheet Patient Problems: Problems Problem Status Onset Cervical spinal stenosis Acute S/P cervical spinal fusion Acute
[2018-04-22] MEDS: traMADol 50 MG TAB TUBE PRN ×2 (14:46→22:03)
[2018-04-22] MEDS: WARFARIN SODIUM 3 MG TAB TUBE SCH (16:22)
[2018-04-22] MEDS: LORazepam 1 MG/0.5 ML UDSYR TUBE PRN (16:35)
[2018-04-22] MEDS ORDERED: oxyCODONE IR 5 MG TAB TUBE ONE (18:15)
[2018-04-22] MEDS: traZODone 50 MG TAB TUBE SCH (18:38)
[2018-04-22] MEDS: INSULIN GLARGINE 100 UNITS/ML UNIT SC SCH (22:02)
[2018-04-22] MEDS: traZODone 50 MG TAB TUBE PRN (23:38)
[2018-04-23] MEDS: ONDANSETRON DISINTEGRATING 4 MG TAB PO PRN ×2 (03:43→23:24)
[2018-04-23] MEDS: traMADol 50 MG TAB TUBE PRN ×3 (03:44→20:45)
[2018-04-23] MEDS: CEPHALEXIN 250 MG/5 ML BULK BOTTLE TUBE SCH ×4 (06:36→23:02)
[2018-04-23] MEDS: ACETAMINOPHEN 650 MG/20.3 ML UDCUP TUBE SCH ×3 (06:36→20:45)
[2018-04-23] MEDS: INSULIN LISPRO 100 UNIT/1 ML VIAL LOW SC SCH ×3 (07:37→18:58)
[2018-04-23] MEDS: LANSOPRAZOLE SUSP 30MG/10ML UDSYR (Adult) TUBE SCH (07:38)
[2018-04-23] MEDS: metFORMIN HCL 500 MG TAB TUBE SCH ×2 (07:39→17:58)
[2018-04-23] MEDS: FLUOXETINE 4 MG/ML 30 ML BOTTLE TUBE SCH (07:40)
[2018-04-23] MEDS: ARNICA TP SCH ×3 (07:41→20:46)
[2018-04-23] MEDS: METHYL SALICYLATE/MENTHOL OINTMENT TP PRN (07:42)
[2018-04-23 09:03] LABS: INR 2.08 (0.83-1.16); PROTIME(PATIENT) 23.4 SEC (12.0-15.0)
--- NOTE | 2018-04-23 09:58 | SOAPPROG ---
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 Rehabilitation stay was interrupted 03/09/2018 for fluid collection in neck. Returned to rehabilitation 03/21/2018 with Dobhoff tube for feeding after failing VFSS; returned to hospital 03/29/2018 with Dobhoff tube clogged. Failed VFSS again and had PEG tube placement. Return to rehabilitation 04/02/2018. Had chest CT at [facility] 2017 for hypoxia with diagnosis of pulmonary embolus; returned to rehabilitation 04/08/2018. Dysphagia. Continue n.p.o. and feeding per PEG. * Continue treatment per LIGHTNING ROD ERECTOR. * Responding to e-stim. Repeat VFSS 04/26/2018. Trials of puree without overt aspiration. Ate EGGS FOR BFAST THIS AM W/O DIFFICULTIES. . 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 He reports that he was told by Neurosurgery that it could be months to years for this to fully resolve. NO UE MOTOR EXAM IMPROVEMENT PER TODAY'S EXAM * Functional independence measure 31 on 04/04/2018 (was 30 on 03/24/2018 before most recent hospitalization;. was 47 on first rehabilitation stay).; improved to 35 on 04/10/2018; to 48 as of 04/17/2018. Assist of 1 for bed mobility, or 2 if fatigued. Transfers with minimal to moderate assist of 2 using a front wheeled walker and stand pivot technique. Ambulated 10 ft x 3 with a front wheeled walker and minimal assist of 2. Upper jaw body dressing requires maximal assist, lower body requires total assist of 2. Bathing and toileting required total assist. Using suspension sling to facilitate upper extremity function. * Continue PT and OT with the goal of modified independence for bed mobility, transfers, and wheelchair mobility, and a setup and possible assistance for dressing and bathing. Pulmonary embolus. Continue oxygen as needed. Continue warfarin, with dosing per pharmacy, and bridging with enoxaparin. GI. Has had constipation and vomiting; constipation was overcorrected and had diarrhea. Appears to be balanced at present as of 04/17/2018. * Intermittently has nausea after bolus feedings. Discussed with nursing and dietitian, 04/17/2018. Doing well with overnight feeding of 7 hr, and smaller boluses three times daily at usual meal times. Bilateral upper extremity edema. No signs or symptoms of upper extremity DVTs. Dependent position certainly contributes. Continue to attempt to elevate arms when possible. HAVE ADVISED PATIENT TO HAVE LEFT UPPER EXTREMITY ELEVATED WITH A PILLOW AND MADE THIS ADJUSTMENT FOR HIM THIS MORNING. Diabetes mellitus type 2. * Increased insulin glargine 8 U starting 03/24/2018; decreasd to 6 U starting and to 4 units starting 04/19/2018. Continue four times daily blood sugar checks with insulin sliding scale. Management is complicated by overnight tube feeding plus three times daily bolus feedings * Restarted metformin 04/04/2018 at 500 mg twice daily. Increased to 1000 mg twice daily starting 04/06/2018. Was discontinued when dysphagia worsened and he had Dobhoff feeding. BLOOD GLC THIS AM 145 Question of cellulitis at PEG site. Nursing reports improvement in peg site compared to yesterday. * Resolved 04/10/2018 after 5 days of cephalexin. * Exam 04/19/2018 consistent with possible yeast. Initiated miconazole barrier cream preparation. No improvement. D/C 04/21/2018. * Initiate cephalexin 500 mg p.o. Four times daily, schedule for 7 days, Examine daily for improvement. Left hand arthralgias. PROBABLE LEFT 1ST [facility]MC OSTEOARTHRITIS. CONTINUE ICING 20 MIN SEVERAL TIMES PER DAY. ORDER WRITTEN FOR OXYCODONE 5 MG Q.4 HOURS P.R.N. PAIN. THE TRAMADOL DOES NOT SEEM TO BE EFFECTIVE IN MANAGING HIS PAIN. Exam 04/20/2018 not consistent with gout. Not interfering significantly with function. POSSIBLE EARLY SPASTICITY-LEFT UPPER EXTREMITY. POSITIVE RAO'S TEST NOTED BILATERALLY WILL MONITOR FOR NOW. Thyroid nodules seen on chest CT. TSH within normal limits. Follow up with Endocrinology after discharge. Dry mouth. * Opiates may contribute, as may cetirizine. * Discontinue cetirizine. Initiate Biotene mouth rinse. Symptom management. * No morphine used since 04/13/2018. Used tramadol less than every day; last use 04/18/2018. * Lorazepam 0.5 mg per tube q.4 hours p.r.n. muscle spasm, anxiety or insomnia generally has a dose at approximately 9:00 p.m... * Senna oral liquid per G-tube for opiate induced constipation; dose range 8.8 mg twice daily to 17.6 mg twice daily. * Bisacodyl suppository prn. * Sleeping well with trazodone and lorazepam. 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 Symptoms are resolved. No indication to continue acyclovir; discontinued 04/06/2018. Reduced breath sounds, right lung neely. Obtained chest x-ray 03/22/2018, read by radiologist as atelectasis versus patchy infiltrate. 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 He is not hypoxic, coughing or febrile. There is no specific treatment indicated. Continue incentive spirometry. History of hypertension, currently on no hypertensives. Blood pressure will be monitored and medications will be added if indicated. He was previously on lisinopril and triamterene/hydrochlorothiazide. Dyslipidemia. Reviewed lipid panel, 04/04/2018. No indication for statin. Adjustment disorder with depressed mood. Continue fluoxetine 20 mg per tube. DVT Prophylaxis. -CURRENT INR 2.08. Continue enoxaparin 40 mg subcutaneous daily until his mobility considerably increases. Continue lansoprazole 30 mg oral liquid per tube daily. BLOOD WORK-SINCE IT HAS BEEN 2 WEEKS SINCE HE HAS HAD CBC OR BMP, WILL OBTAIN THESE TOMORROW MORNING. DISPOSITION: Making significant improvement but still seems unlikely to return home to single-level mobile home with his with several stairs to enter. Case Management will initiate Medicaid application in case he needs long-term care placement. Tentative discharge date set for 05/05/2018. FOLLOW-UP: With Neurosurgery after discharge from inpatient rehabilitation. Follow up with endocrinology regarding thyroid nodules. 04/22/18 10:30 04/23/18 09:58 Subjective: HE HAD COMPLAINTS OF SEVERE PAIN IN HIS LEFT [address] [place] [address] JOINT LAST P.M. WHICH WAS NOT RELIEVED WITH TRAMADOL AND THEREFORE AN ORDER WAS CALLED IN FOR OXYCODONE 5 MG WHICH SHE STATES DRAMATICALLY IMPROVED HIS PAIN. HE ALSO STATES CONTINUED LEFT HAND SWELLING AND POSSIBLY SOME SPASTICITY INVOLVING THE LEFT HAND. Objective: Vital Signs Temp Pulse Resp BP Pulse Ox 36.8 C 78 16 110/69 92 04/23/18 07:13 04/23/18 07:13 04/23/18 07:13 04/23/18 07:13 04/23/18 07:13 Laboratory Results 04/09/18 15:25 04/09/18 15:25 04/22/18 04/23/18 04/24/18 05:59 05:59 05:59 Intake Total 2075 1835 Output Total 1175 1050 Balance 900 785 PT 23.4 SEC (12.0-15.0) H 04/23/18 06:50 INR 2.08 (0.83-1.16) H 04/23/18 06:50 Physical Exam - Physical Exam General Appearance: WD/WN, alert, no apparent distress Respiratory: lungs clear, normal breath sounds Cardiac/Chest: No edema Abdomen: non-tender, soft Skin: other (LEFT UPPER EXTREMITY WARM WITHOUT ERYTHEMA. NO ALLODYNIA) Extremities: swelling (LEFT HAND EDEMATOUS. [facility] JOINT TENDER TO PALPATION WITH NEGATIVE AXIAL GRIND TEST) Neuro/Psych: motor weakness (UPPER EXTREMITY WEAKNESS CONSISTENT WITH BILATERAL C5 NERVE ROOT PALSY, MORE PRONOUNCED ON THE LEFT.) ICD10 Worksheet Patient Problems: Problems Problem Status Onset Cervical spinal stenosis Acute S/P cervical spinal fusion Acute
[2018-04-23] MEDS: oxyCODONE IR 5 MG TAB PO PRN ×4 (10:33→23:03)
[2018-04-23] MEDS: WARFARIN SODIUM 3 MG TAB TUBE SCH (15:50)
[2018-04-23] MEDS: traZODone 50 MG TAB TUBE SCH (17:58)
[2018-04-23] MEDS: INSULIN GLARGINE 100 UNITS/ML UNIT SC SCH (22:00)
[2018-04-23] MEDS: traZODone 50 MG TAB TUBE PRN (23:02)
[2018-04-24] MEDS: oxyCODONE IR 5 MG TAB PO PRN ×4 (03:04→20:51)
[2018-04-24] MEDS: ONDANSETRON DISINTEGRATING 4 MG TAB PO PRN ×3 (04:47→16:42)
[2018-04-24] MEDS: CEPHALEXIN 250 MG/5 ML BULK BOTTLE TUBE SCH ×4 (06:41→23:01)
[2018-04-24] MEDS: ACETAMINOPHEN 650 MG/20.3 ML UDCUP TUBE SCH ×3 (06:41→20:19)
[2018-04-24] MEDS: INSULIN LISPRO 100 UNIT/1 ML VIAL LOW SC SCH ×3 (07:49→15:26)
[2018-04-24] MEDS: metFORMIN HCL 500 MG TAB TUBE SCH ×2 (07:50→16:31)
[2018-04-24] MEDS: LANSOPRAZOLE SUSP 30MG/10ML UDSYR (Adult) TUBE SCH (07:50)
[2018-04-24] MEDS: FLUOXETINE 4 MG/ML 30 ML BOTTLE TUBE SCH (07:51)
[2018-04-24 08:12] LABS: PLATELET COUNT 230 10^3/uL (150-400)
[2018-04-24 08:30] LABS: INR 2.32 (0.83-1.16); PROTIME(PATIENT) 25.5 SEC (12.0-15.0)
[2018-04-24] MEDS: ARNICA TP SCH ×3 (09:08→20:21)
--- NOTE | 2018-04-24 12:42 | SOAPPROG ---
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 Rehabilitation stay was interrupted 03/09/2018 for fluid collection in neck. Returned to rehabilitation 03/21/2018 with Dobhoff tube for feeding after failing VFSS; returned to hospital 03/29/2018 with Dobhoff tube clogged. Failed VFSS again and had PEG tube placement. Return to rehabilitation 04/02/2018. Had chest CT at [facility] 2017 for hypoxia with diagnosis of pulmonary embolus; returned to rehabilitation 04/08/2018. Dysphagia. Continue n.p.o. and feeding per PEG. LEFT MESSAGE WITH DIETITIAN, NAYA, TO SEE IF RATE OF TUBE FEEDS COULD BE CHANGED SINCE PATIENT RELATES NAUSEA AFTER TUBE FEEDS AND ALSO TO POSSIBLY INCREASE SODIUM CONTENT OF TUBE FEEDS TO HELP BRING UP SERUM SODIUM. * Continue treatment per TECHNICIAN AUTOMATIC. SPEECH THERAPY CONTINUES TO WORK WITH HIM. HE HAS REPEAT VFSS ON 04/26 . 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 He reports that he was told by Neurosurgery that it could be months to years for this to fully resolve. NO UE MOTOR EXAM IMPROVEMENT PER TODAY'S EXAM * Functional independence measure 31 on 04/04/2018 (was 30 on 03/24/2018 before most recent hospitalization;. was 47 on first rehabilitation stay).; improved to 35 on 04/10/2018; to 48 as of 04/17/2018. Assist of 1 for bed mobility, or 2 if fatigued. Transfers with minimal to moderate assist of 2 using a front wheeled walker and stand pivot technique. Ambulated 10 ft x 3 with a front wheeled walker and minimal assist of 2. Upper jaw body dressing requires maximal assist, lower body requires total assist of 2. Bathing and toileting required total assist. Using suspension sling to facilitate upper extremity function. * Continue PT and OT with the goal of modified independence for bed mobility, transfers, and wheelchair mobility, and a setup and possible assistance for dressing and bathing. Pulmonary embolus. Continue oxygen as needed. Continue warfarin, with dosing per pharmacy, and bridging with enoxaparin. GI. Has had constipation and vomiting; constipation was overcorrected and had diarrhea. Appears to be balanced at present as of 04/17/2018. * Intermittently has nausea after bolus feedings. Discussed with nursing and dietitian, 04/17/2018. Doing well with overnight feeding of 7 hr, and smaller boluses three times daily at usual meal times. Bilateral upper extremity edema. No signs or symptoms of upper extremity DVTs. Dependent position certainly contributes. Continue to attempt to elevate arms when possible. HAVE ADVISED PATIENT TO HAVE LEFT UPPER EXTREMITY ELEVATED WITH A PILLOW AND MADE THIS ADJUSTMENT FOR HIM THIS MORNING. Diabetes mellitus type 2. * Increased insulin glargine 8 U starting 03/24/2018; decreasd to 6 U starting and to 4 units starting 04/19/2018. Continue four times daily blood sugar checks with insulin sliding scale. Management is complicated by overnight tube feeding plus three times daily bolus feedings * Restarted metformin 04/04/2018 at 500 mg twice daily. Increased to 1000 mg twice daily starting 04/06/2018. Was discontinued when dysphagia worsened and he had Dobhoff feeding. BLOOD GLC THIS AM 122. AT THE REQUEST OF NURSING, WILL CHANGE FINGERSTICKS TO DAILY. Question of cellulitis at PEG site. Nursing reports improvement in peg site compared to yesterday. * Resolved 04/10/2018 after 5 days of cephalexin. * Exam 04/19/2018 consistent with possible yeast. Initiated miconazole barrier cream preparation. No improvement. D/C 04/21/2018. * Initiate cephalexin 500 mg p.o. Four times daily, schedule for 7 days, Examine daily for improvement. Left hand arthralgias. PROBABLE LEFT 1ST [facility]MC OSTEOARTHRITIS. CONTINUE ICING 20 MIN SEVERAL TIMES PER DAY. ORDER WRITTEN FOR OXYCODONE 5 MG Q.4 HOURS P.R.N. PAIN. THE TRAMADOL DOES NOT SEEM TO BE EFFECTIVE IN MANAGING HIS PAIN. Exam 04/20/2018 not consistent with gout. Not interfering significantly with function. POSSIBLE EARLY SPASTICITY-LEFT UPPER EXTREMITY. POSITIVE RAO'S TEST NOTED BILATERALLY WILL MONITOR FOR NOW. Thyroid nodules seen on chest CT. TSH within normal limits. Follow up with Endocrinology after discharge. Dry mouth. * Opiates may contribute, as may cetirizine. * Discontinue cetirizine. Initiate Biotene mouth rinse. Symptom management. * No morphine used since 04/13/2018. Used tramadol less than every day; last use 04/18/2018. * Lorazepam 0.5 mg per tube q.4 hours p.r.n. muscle spasm, anxiety or insomnia generally has a dose at approximately 9:00 p.m... * Senna oral liquid per G-tube for opiate induced constipation; dose range 8.8 mg twice daily to 17.6 mg twice daily. * Bisacodyl suppository prn. * Sleeping well with trazodone and lorazepam. 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 Symptoms are resolved. No indication to continue acyclovir; discontinued 04/06/2018. Reduced breath sounds, right lung neely. Obtained chest x-ray 03/22/2018, read by radiologist as atelectasis versus patchy infiltrate. 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 He is not hypoxic, coughing or febrile. There is no specific treatment indicated. Continue incentive spirometry. History of hypertension, currently on no hypertensives. Blood pressure will be monitored and medications will be added if indicated. He was previously on lisinopril and triamterene/hydrochlorothiazide. Dyslipidemia. Reviewed lipid panel, 04/04/2018. No indication for statin. Adjustment disorder with depressed mood. Continue fluoxetine 20 mg per tube. DVT Prophylaxis. -CURRENT INR 2.08. Continue enoxaparin 40 mg subcutaneous daily until his mobility considerably increases. WILL CHANGE INRS TO EVERY OTHER DAY. Continue lansoprazole 30 mg oral liquid per tube daily. BLOOD WORK-SINCE IT HAS BEEN 2 WEEKS SINCE HE HAS HAD CBC OR BMP, WILL OBTAIN THESE TOMORROW MORNING. DISPOSITION: Making significant improvement but still seems unlikely to return home to single-level mobile home with his with several stairs to enter. Case Management will initiate Medicaid application in case he needs long-term care placement. Tentative discharge date set for 05/05/2018. FOLLOW-UP: With Neurosurgery after discharge from inpatient rehabilitation. Follow up with endocrinology regarding thyroid nodules. 04/22/18 10:30 04/23/18 09:58 04/24/18 12:43 Subjective: HE REPORTS HE WAS NAUSEOUS LAST NIGHT AND WAS GIVEN ZOFRAN. HE REPORTS HE WAS NAUSEOUS AGAIN THIS MORNING AND WAS GIVEN ZOFRAN AGAIN AND HIS NAUSEA WAS RELIEVED. HE CONTINUES TO HAVE SOME LEFT HAND PAIN IN THE THUMB THIS IS MARKEDLY IMPROVED SINCE BEGINNING OXYCODONE. HE DOES NOT VERBALIZE ANY OTHER COMPLAINTS. Objective: Vital Signs Temp Pulse Resp BP Pulse Ox 36.5 C 97 16 114/74 91 L 04/24/18 08:00 04/24/18 08:00 04/24/18 08:00 04/24/18 08:00 04/24/18 08:00 Laboratory Results 04/24/18 06:30 04/24/18 06:30 04/23/18 04/24/18 04/25/18 05:59 05:59 05:59 Intake Total 1835 2175 75 Output Total 1050 1500 600 Balance 785 675 -525 PT 25.5 SEC (12.0-15.0) H 04/24/18 06:30 INR 2.32 (0.83-1.16) H 04/24/18 06:30 Physical Exam - Physical Exam General Appearance: WD/WN, alert, no apparent distress Respiratory: lungs clear, normal breath sounds Cardiac/Chest: No edema Abdomen: non-tender, soft Skin: warm/dry Neuro/Psych: motor weakness (UPPER EXTREMITY WEAKNESS THAT RESEMBLE CENTRAL CORD SYNDROME PATIENT DOES NOT DEMONSTRATE BICEPS MUSCLE RECRUITMENT EVEN WITH GRAVITY ELIMINATED ON SERIAL EXAMS. OVERALL STRENGTH IN RIGHT UPPER EXTREMITY IS GREATER THAN LEFT UPPER EXTREMITY DOES NOT PRESENT WITH FUNCTIONAL UPPER EXTREMITY STRENGTH OR RANGE OF MOTION PER MY EXAM.) ICD10 Worksheet Patient Problems: Problems Problem Status Onset Cervical spinal stenosis Acute S/P cervical spinal fusion Acute
[2018-04-24] MEDS: WARFARIN SODIUM 3 MG TAB TUBE SCH (15:11)
[2018-04-24] MEDS: METHYL SALICYLATE/MENTHOL OINTMENT TP PRN (15:29)
[2018-04-24] MEDS: traZODone 50 MG TAB TUBE SCH (17:59)
[2018-04-24] MEDS: NYSTATIN POWDER 15 GM BTL TP PRN (20:26)
[2018-04-24] MEDS: INSULIN GLARGINE 100 UNITS/ML UNIT SC SCH (20:51)
[2018-04-24] MEDS: traZODone 50 MG TAB TUBE PRN (22:10)
--- NOTE | 2018-04-25 14:18 | SOAPPROG ---
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 Rehabilitation stay was interrupted 03/09/2018 for fluid collection in neck. Returned to rehabilitation 03/21/2018 with Dobhoff tube for feeding after failing VFSS; returned to hospital 03/29/2018 with Dobhoff tube clogged. Failed VFSS again and had PEG tube placement. Return to rehabilitation 04/02/2018. Had chest CT at [facility] 2017 for hypoxia with diagnosis of pulmonary embolus; returned to rehabilitation 04/08/2018. Dysphagia. HE IS TOLERATING IT LEAST 1 MEAL PER DAY. LEFT VOICE MESSAGE WITH DIETITIAN NAYA WHO IN TURN LEFT KNEE A VOICE MESSAGE INDICATING THAT SHE WOULD ADJUST HIS BOLUS FEEDS TO AVOID NAUSEA WELL TO MAKE SOME ADJUSTMENTS IN THE SODIUM CONTENT OF THESE TUBE FEEDS TO HELP RAISE HIS SERUM SODIUM LEVEL WHICH WAS NOTED TO BE 134 YESTERDAY. WILL REPEAT SODIUM LEVEL IN A.M. TO MAKE SURE HE IS GOING IN THE RIGHT DIRECTION. * Continue treatment per SENIOR DATABASE PROGRAMMER. SPEECH THERAPY CONTINUES TO WORK WITH HIM. HE HAS REPEAT VFSS ON 04/26 . 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 DISCUSSED WITH OCCUPATIONAL THERAPY THAT HE WOULD BENEFIT FROM ELEVATED LAP BOARD WITH AND SKATEBOARD TO ASSIST IN ANTIGRAVITY BICEPS FLEXION. I ALSO FEEL HE WOULD BENEFIT FROM A COMBINATION OF E STEM AND BIOFEEDBACK TO HELP IMPROVE BICEPS AND DELTOID RECRUITMENT. He reports that he was told by Neurosurgery that it could be months to years for this to fully resolve. * Functional independence measure 31 on 04/04/2018 (was 30 on 03/24/2018 before most recent hospitalization;. was 47 on first rehabilitation stay).; improved to 35 on 04/10/2018; to 48 as of 04/17/2018. Assist of 1 for bed mobility, or 2 if fatigued. Transfers with minimal to moderate assist of 2 using a front wheeled walker and stand pivot technique. Ambulated 10 ft x 3 with a front wheeled walker and minimal assist of 2. Upper jaw body dressing requires maximal assist, lower body requires total assist of 2. Bathing and toileting required total assist. Using suspension sling to facilitate upper extremity function. * Continue PT and OT with the goal of modified independence for bed mobility, transfers, and wheelchair mobility, and a setup and possible assistance for dressing and bathing. Pulmonary embolus. Continue oxygen as needed. Continue warfarin, with dosing per pharmacy, and bridging with enoxaparin. GI. Has had constipation and vomiting; constipation was overcorrected and had diarrhea. Appears to be balanced at present as of 04/17/2018. * Intermittently has nausea after bolus feedings. Discussed with nursing and dietitian, 04/17/2018. Doing well with overnight feeding of 7 hr, and smaller boluses three times daily at usual meal times. Bilateral upper extremity edema. No signs or symptoms of upper extremity DVTs. Dependent position certainly contributes. Continue to attempt to elevate arms when possible. HAVE ADVISED PATIENT TO HAVE LEFT UPPER EXTREMITY ELEVATED WITH A PILLOW AND MADE THIS ADJUSTMENT FOR HIM THIS MORNING. Diabetes mellitus type 2. NURSING DID NOT FEEL THAT THREE TIMES DAILY FINGERSTICKS WERE NECESSARY AND THEREFORE THIS WAS CHANGED TO ONCE PER DAY. ALSO WILL DC LISPRO HUMALOG THREE TIMES DAILY AND CHANGE IT TO THREE TIMES DAILY P.R.N. SLIDING SCALE * Increased insulin glargine 8 U starting 03/24/2018; decreasd to 6 U starting and to 4 units starting 04/19/2018. Continue four times daily blood sugar checks with insulin sliding scale. Management is complicated by overnight tube feeding plus three times daily bolus feedings * Restarted metformin 04/04/2018 at 500 mg twice daily. Increased to 1000 mg twice daily starting 04/06/2018. Was discontinued when dysphagia worsened and he had Dobhoff feeding. BLOOD GLC THIS AM 122. AT THE REQUEST OF NURSING, WILL CHANGE FINGERSTICKS TO DAILY. Question of cellulitis at PEG site. Nursing reports improvement in peg site compared to yesterday. * Resolved 04/10/2018 after 5 days of cephalexin. * Exam 04/19/2018 consistent with possible yeast. Initiated miconazole barrier cream preparation. No improvement. D/C 04/21/2018. * Initiate cephalexin 500 mg p.o. Four times daily, schedule for 7 days, Examine daily for improvement. Left hand arthralgias. PROBABLE LEFT 1ST CMC OSTEOARTHRITIS. CONTINUE ICING 20 MIN SEVERAL TIMES PER DAY. ORDER WRITTEN FOR OXYCODONE 5 MG Q.4 HOURS P.R.N. PAIN. THE TRAMADOL DOES NOT SEEM TO BE EFFECTIVE IN MANAGING HIS PAIN. Exam 04/20/2018 not consistent with gout. Not interfering significantly with function. POSSIBLE EARLY SPASTICITY-LEFT UPPER EXTREMITY. POSITIVE RAO'S TEST NOTED BILATERALLY WILL MONITOR FOR NOW. Thyroid nodules seen on chest CT. TSH within normal limits. Follow up with Endocrinology after discharge. Dry mouth. * Opiates may contribute, as may cetirizine. * Discontinue cetirizine. Initiate Biotene mouth rinse. Symptom management. * No morphine used since 04/13/2018. Used tramadol less than every day; last use 04/18/2018. * Lorazepam 0.5 mg per tube q.4 hours p.r.n. muscle spasm, anxiety or insomnia generally has a dose at approximately 9:00 p.m... * Senna oral liquid per G-tube for opiate induced constipation; dose range 8.8 mg twice daily to 17.6 mg twice daily. * Bisacodyl suppository prn. * Sleeping well with trazodone and lorazepam. 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 Symptoms are resolved. No indication to continue acyclovir; discontinued 04/06/2018. Reduced breath sounds, right lung neely. Obtained chest x-ray 03/22/2018, read by radiologist as atelectasis versus patchy infiltrate. 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 He is not hypoxic, coughing or febrile. There is no specific treatment indicated. Continue incentive spirometry. History of hypertension, currently on no hypertensives. Blood pressure will be monitored and medications will be added if indicated. He was previously on lisinopril and triamterene/hydrochlorothiazide. Dyslipidemia. Reviewed lipid panel, 04/04/2018. No indication for statin. Adjustment disorder with depressed mood. Continue fluoxetine 20 mg per tube. DVT Prophylaxis. -CURRENT INR 2.08. Continue enoxaparin 40 mg subcutaneous daily until his mobility considerably increases. WILL CHANGE INRS TO EVERY OTHER DAY. Continue lansoprazole 30 mg oral liquid per tube daily. BLOOD WORK-SINCE IT HAS BEEN 2 WEEKS SINCE HE HAS HAD CBC OR BMP, WILL OBTAIN THESE TOMORROW MORNING. DISPOSITION: Making significant improvement but still seems unlikely to return home to single-level mobile home with his with several stairs to enter. Case Management will initiate Medicaid application in case he needs long-term care placement. Tentative discharge date set for 05/05/2018. FOLLOW-UP: With Neurosurgery after discharge from inpatient rehabilitation. Follow up with endocrinology regarding thyroid nodules. 04/22/18 10:30 04/23/18 09:58 04/24/18 12:43 04/25/18 14:14 Subjective: NO COMPLAINTS THIS MORNING. Objective: Vital Signs Temp Pulse Resp BP Pulse Ox 36.6 C 91 18 121/82 H 88 L 04/24/18 18:04 04/24/18 18:04 04/24/18 18:04 04/24/18 18:04 04/24/18 18:04 Laboratory Results 04/24/18 06:30 04/24/18 06:30 04/24/18 04/25/18 04/26/18 05:59 05:59 05:59 Intake Total 2175 200 Output Total 1500 1500 Balance 675 -1300 PT 25.5 SEC (12.0-15.0) H 04/24/18 06:30 INR 2.32 (0.83-1.16) H 04/24/18 06:30 Physical Exam - Physical Exam General Appearance: WD/WN, alert, no apparent distress Neck: non-tender, full range of motion Respiratory: lungs clear, normal breath sounds Cardiac/Chest: edema (MILD LEFT UPPER EXTREMITY EDEMA IMPROVED FROM PREVIOUS EXAM) Abdomen: normal bowel sounds, non-tender, soft Skin: warm/dry Extremities: No swelling, No Emma's sign Neuro/Psych: motor weakness (CAN ADDUCT SHOULDERS WITHOUT MUCH DIFFICULTY? RHOMBOID FUNCTION VERSES MIDDLE TRAPEZIUS. 4/5 RIGHT AND LEFT TRICEPS 2+ 3-/5 LEFT WRIST EXTENSORS 3+ 4-/5 RIGHT WRIST EXTENSORS PER PHYSICAL THERAPY PATIENT HAS ANTIGRAVITY BICEPS HOWEVER NOT APPRECIATED ON TODAY'S EXAM.) ICD10 Worksheet Patient Problems: Problems Problem Status Onset Cervical spinal stenosis Acute S/P cervical spinal fusion Acute
[2018-04-25] MEDS ORDERED: INSULIN LISPRO 100 UNIT/ML SC PRN (14:21)
[2018-04-25] MEDS ORDERED: D50W 25 GM/50 ML SYR IVP PRN (14:21)
[2018-04-25] MEDS: ACETAMINOPHEN 650 MG/20.3 ML UDCUP TUBE SCH ×3 (14:45→20:17)
[2018-04-25] MEDS: LANSOPRAZOLE SUSP 30MG/10ML UDSYR (Adult) TUBE SCH (14:46)
[2018-04-25] MEDS: metFORMIN HCL 500 MG TAB TUBE SCH ×2 (14:46→17:11)
[2018-04-25] MEDS: CEPHALEXIN 250 MG/5 ML BULK BOTTLE TUBE SCH ×5 (14:46→23:58)
[2018-04-25] MEDS: FLUOXETINE 4 MG/ML 30 ML BOTTLE TUBE SCH ×2 (14:46→17:42)
[2018-04-25] MEDS: ARNICA TP SCH ×3 (14:47→20:41)
[2018-04-25] MEDS: INSULIN LISPRO 100 UNIT/1 ML VIAL LOW SC SCH (14:49)
[2018-04-25] MEDS: WARFARIN SODIUM 3 MG TAB TUBE SCH (17:11)
[2018-04-25] MEDS: ONDANSETRON DISINTEGRATING 4 MG TAB PO PRN (17:11)
[2018-04-25] MEDS: METHYL SALICYLATE/MENTHOL OINTMENT TP PRN ×2 (17:13→20:39)
[2018-04-25] MEDS: oxyCODONE IR 5 MG TAB PO PRN (18:25)
[2018-04-25] MEDS: traZODone 50 MG TAB TUBE SCH (18:25)
[2018-04-25] MEDS: INSULIN GLARGINE 100 UNITS/ML UNIT SC SCH (20:16)
[2018-04-25] MEDS: traMADol 50 MG TAB TUBE PRN (20:23)
[2018-04-25] MEDS: NYSTATIN POWDER 15 GM BTL TP PRN (20:24)
[2018-04-26] MEDS: oxyCODONE IR 5 MG TAB PO PRN ×3 (00:08→22:19)
[2018-04-26] MEDS: ONDANSETRON DISINTEGRATING 4 MG TAB PO PRN ×3 (04:43→17:22)
[2018-04-26] MEDS: CEPHALEXIN 250 MG/5 ML BULK BOTTLE TUBE SCH ×3 (05:02→17:19)
[2018-04-26] MEDS: ACETAMINOPHEN 650 MG/20.3 ML UDCUP TUBE SCH ×3 (05:03→20:33)
[2018-04-26 08:13] LABS: INR 2.55 (0.83-1.16); PROTIME(PATIENT) 27.4 SEC (12.0-15.0)
[2018-04-26] MEDS: FLUOXETINE 4 MG/ML 30 ML BOTTLE TUBE SCH (08:57)
[2018-04-26] MEDS: LANSOPRAZOLE SUSP 30MG/10ML UDSYR (Adult) TUBE SCH (08:57)
[2018-04-26] MEDS: metFORMIN HCL 500 MG TAB TUBE SCH ×2 (08:57→17:19)
[2018-04-26] MEDS: ARNICA TP SCH ×3 (08:58→20:35)
--- NOTE | 2018-04-26 15:14 | SOAPPROG ---
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 Rehabilitation stay was interrupted 03/09/2018 for fluid collection in neck. Returned to rehabilitation 03/21/2018 with Dobhoff tube for feeding after failing VFSS; returned to hospital 03/29/2018 with Dobhoff tube clogged. Failed VFSS again and had PEG tube placement. Return to rehabilitation 04/02/2018. Had chest CT at [facility] 2017 for hypoxia with diagnosis of pulmonary embolus; returned to rehabilitation 04/08/2018. Dysphagia. Continue n.p.o. and feeding per PEG. * Continue treatment per SUPERVISOR HISTOLOGY. * Responding to e-stim. Repeat VFSS 04/26/2018. Taking meals p.o. with SUPERVISOR HISTOLOGY.. 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 He reports that he was told by Neurosurgery that it could be months to years for this to fully resolve. * Functional independence measure 31 on 04/04/2018 (was 30 on 03/24/2018 before most recent hospitalization;. was 47 on first rehabilitation stay).; improved to 35 on 04/10/2018; to 48 as of 04/17/2018. Assist of 1 for bed mobility, or 2 if fatigued. Transfers with minimal to moderate assist of 2 using a front wheeled walker and stand pivot technique. Ambulated 10 ft x 3 with a front wheeled walker and minimal assist of 2. Upper jaw body dressing requires maximal assist, lower body requires total assist of 2. Bathing and toileting required total assist. Using suspension sling to facilitate upper extremity function. * Continue PT and OT with the goal of modified independence for bed mobility, transfers, and wheelchair mobility, and a setup and possible assistance for dressing and bathing. Pulmonary embolus. Continue oxygen as needed. Continue warfarin, with dosing per pharmacy, and bridging with enoxaparin. GI. Has had constipation and vomiting; constipation was overcorrected and had diarrhea. * Intermittently has nausea after bolus feedings. Dietitian continues to adjust tube feeding. * Discontinued milk of magnesia 04/26/2018 due to diarrhea. If diarrhea continues consider checking for C difficile. Bilateral upper extremity edema. No signs or symptoms of upper extremity DVTs. Dependent position certainly contributes. Continue to attempt to elevate arms when possible. Left hand tremor. May be related to reinnervation. Continue to monitor. Diabetes mellitus type 2. * Increased insulin glargine 8 U starting 03/24/2018; decreasd to 6 U starting and to 4 units starting 04/19/2018. Daily blood sugar checks. Has not had hypoglycemia. * Restarted metformin 04/04/2018 at 500 mg twice daily. Increased to 1000 mg twice daily starting 04/06/2018. Was discontinued when dysphagia worsened and he had Dobhoff feeding. Question of cellulitis at PEG site. * Resolved 04/10/2018 after 5 days of cephalexin. * Exam 04/19/2018 consistent with possible yeast. Initiated miconazole barrier cream preparation. No improvement. D/C 04/21/2018. * Initiate cephalexin 500 mg p.o. Four times daily, schedule for 7 days, Examine daily for improvement. Left hand arthralgias. Exam 04/20/2018 not consistent with gout. Not interfering significantly with function. Trial of ice 10 min at a time 3 times a day as needed. Continue acetaminophen and tramadol as needed. Thyroid nodules seen on chest CT. TSH within normal limits. Follow up with Endocrinology after discharge. Dry mouth. * Opiates may contribute, as may cetirizine. * Discontinue cetirizine. Initiate Biotene mouth rinse. Symptom management. * No morphine used since 04/13/2018. Used tramadol less than every day; last use 04/18/2018. * Lorazepam 0.5 mg per tube q.4 hours p.r.n. muscle spasm, anxiety or insomnia generally has a dose at approximately 9:00 p.m... * Senna oral liquid per G-tube for opiate induced constipation; dose range 8.8 mg twice daily to 17.6 mg twice daily. * Bisacodyl suppository prn. * Sleeping well with trazodone and lorazepam. 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 Symptoms are resolved. No indication to continue acyclovir; discontinued 04/06/2018. Reduced breath sounds, right lung neely. Obtained chest x-ray 03/22/2018, read by radiologist as atelectasis versus patchy infiltrate. 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 He is not hypoxic, coughing or febrile. There is no specific treatment indicated. Continue incentive spirometry. History of hypertension, currently on no hypertensives. Blood pressure will be monitored and medications will be added if indicated. He was previously on lisinopril and triamterene/hydrochlorothiazide. Dyslipidemia. Reviewed lipid panel, 04/04/2018. No indication for statin. Adjustment disorder with depressed mood. Continue fluoxetine 20 mg per tube. Prophylaxis. Continue enoxaparin 40 mg subcutaneous daily until his mobility considerably increases. Continue lansoprazole 30 mg oral liquid per tube daily. DISPOSITION: Making significant improvement but still seems unlikely to return home to single-level mobile home with his with several stairs to enter. Case Management will initiate Medicaid application in case he needs long-term care placement. Tentative discharge date set for 05/05/2018. FOLLOW-UP: With Neurosurgery after discharge from inpatient rehabilitation. Follow up with endocrinology regarding thyroid nodules. 04/26/18 15:09 Subjective: Having diarrhea after milk of magnesia. Has noticed a tremor in his left hand. Otherwise without complaints. Objective: Vital Signs Temp Pulse Resp BP Pulse Ox 36.6 C 89 16 136/79 H 90 L 04/26/18 08:00 04/26/18 08:00 04/26/18 08:00 04/26/18 08:00 04/26/18 08:00 Laboratory Results 04/24/18 06:30 04/24/18 06:30 04/25/18 04/26/18 04/27/18 05:59 05:59 05:59 Intake Total 200 2177 380 Output Total 1500 1100 Balance -1300 1077 380 PT 27.4 SEC (12.0-15.0) H 04/26/18 06:00 INR 2.55 (0.83-1.16) H 04/26/18 06:00 Physical Exam - Physical Exam General Appearance: WD/WN, alert, no apparent distress Respiratory: No respiratory distress, No accessory muscle use Skin: normal color, warm/dry Neuro/Psych: alert, normal mood/affect, oriented x 3, motor weakness (Bilateral biceps), other (Intermittent tremor of the left hand and fingers.) ICD10 Worksheet Patient Problems: Problems Problem Status Onset Cervical spinal stenosis Acute S/P cervical spinal fusion Acute
[2018-04-26] MEDS ORDERED: WARFARIN SODIUM 4 MG TAB TUBE ONE (16:00)
[2018-04-26] MEDS: traZODone 50 MG TAB TUBE SCH (17:18)
[2018-04-26] MEDS: METHYL SALICYLATE/MENTHOL OINTMENT TP PRN (20:07)
[2018-04-26] MEDS: traMADol 50 MG TAB TUBE PRN (20:33)
[2018-04-26] MEDS: INSULIN GLARGINE 100 UNITS/ML UNIT SC SCH (20:34)
[2018-04-26] MEDS: NYSTATIN POWDER 15 GM BTL TP PRN (20:35)
[2018-04-26] MEDS: traZODone 50 MG TAB TUBE PRN (22:26)
[2018-04-27] MEDS: CEPHALEXIN 250 MG/5 ML BULK BOTTLE TUBE SCH ×3 (00:11→12:56)
[2018-04-27] MEDS: ONDANSETRON DISINTEGRATING 4 MG TAB PO PRN ×3 (00:27→15:20)
[2018-04-27] MEDS: ACETAMINOPHEN 650 MG/20.3 ML UDCUP TUBE SCH ×2 (06:00→12:56)
[2018-04-27] MEDS: ARNICA TP SCH ×3 (07:47→21:01)
[2018-04-27] MEDS: LANSOPRAZOLE SUSP 30MG/10ML UDSYR (Adult) TUBE SCH (07:47)
[2018-04-27] MEDS: FLUOXETINE 4 MG/ML 30 ML BOTTLE TUBE SCH (07:47)
[2018-04-27] MEDS: metFORMIN HCL 500 MG TAB TUBE SCH (07:47)
[2018-04-27 08:38] LABS: INR 2.44 (0.83-1.16); PROTIME(PATIENT) 26.5 SEC (12.0-15.0)
--- NOTE | 2018-04-27 13:12 | SOAPPROG ---
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 Rehabilitation stay was interrupted 03/09/2018 for fluid collection in neck. Returned to rehabilitation 03/21/2018 with Dobhoff tube for feeding after failing VFSS; returned to hospital 03/29/2018 with Dobhoff tube clogged. Failed VFSS again and had PEG tube placement. Return to rehabilitation 04/02/2018. Had chest CT at [facility] 2017 for hypoxia with diagnosis of pulmonary embolus; returned to rehabilitation 04/08/2018. Dysphagia. Much improved. Advanced to dysphagia 2 texture and thin liquids after VFSS 04/26/2018. * Continue treatment per WAREDRESSER. 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 He reports that he was told by Neurosurgery that it could be months to years for this to fully resolve. * Functional independence measure 31 on 04/04/2018 (was 30 on 03/24/2018 before most recent hospitalization;. was 47 on first rehabilitation stay).; improved to 35 on 04/10/2018; to 48 as of 04/17/2018; 52 on 04/24/2018; 55 on 04/28/2018. 2 person transfer per nursing. Moderate assistance for bed mobility. Transfer varies from minimal assistance to maximal assistance of 2. Sliding board transfer moderate assistance of 1. Ambulated 20 ft x 2 with 2 people assisting for balance and wheelchair following. Able to accomplish grooming and hygiene using overhead slings to raise arms and remove gravity challenge. Otherwise dependent for ADLs. * Continue PT and OT with the goal of modified independence for bed mobility, transfers, and wheelchair mobility, and a setup and possible assistance for dressing and bathing. Pulmonary embolus. Continue oxygen as needed. Continue warfarin, with dosing per pharmacy, and bridging with enoxaparin. GI. Has had constipation and vomiting; constipation was overcorrected and had diarrhea. * Intermittently has nausea after bolus feedings. Dietitian continues to adjust tube feeding. * Discontinued milk of magnesia 04/26/2018 due to diarrhea. Checking for C difficile 04/27/2018. * Observe for improvement as he is switching to p.o. nutrition. Left hand tremor. May be related to reinnervation. Continue to monitor. Diabetes mellitus type 2. * Increased insulin glargine 8 U starting 03/24/2018; decreasd to 6 U starting and to 4 units starting 04/19/2018. Daily blood sugar checks. Has not had hypoglycemia. * Restarted metformin 04/04/2018 at 500 mg twice daily. Increased to 1000 mg twice daily starting 04/06/2018. Was discontinued when dysphagia worsened and he had Dobhoff feeding. Left hand arthralgias. Exam 04/20/2018 not consistent with gout. Not interfering significantly with function. Trial of ice 10 min at a time 3 times a day as needed. Continue acetaminophen, tramadol and/or oxycodone as needed. Symptom management. * Using intermittent oxycodone for left thumb pain, likely osteoarthritis. * Lorazepam 0.5 mg per tube q.4 hours p.r.n. muscle spasm, anxiety or insomnia; generally has a dose at approximately 9:00 p.m. * Senna oral liquid per G-tube PRN for opiate induced constipation; dose range 8.8 mg twice daily to 17.6 mg twice daily. * Bisacodyl suppository prn. * Sleeping well with trazodone and lorazepam. CHRONIC/STABLE CONDITIONS: Cellulitis at PEG site. * Treated 04/10/2018 with 5 days of cephalexin. * Had recurrent symptoms. 7 day course of cephalexin completing 04/27/2018. 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 Symptoms are resolved. No indication to continue acyclovir; discontinued 04/06/2018. Reduced breath sounds, right lung neely. Obtained chest x-ray 03/22/2018, read by radiologist as atelectasis versus patchy infiltrate. 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 He is not hypoxic, coughing or febrile. There is no specific treatment indicated. Continue incentive spirometry. History of hypertension, currently on no hypertensives. Blood pressure will be monitored and medications will be added if indicated. He was previously on lisinopril and triamterene/hydrochlorothiazide. History of dyslipidemia. Reviewed lipid panel, 04/04/2018. No indication for statin. Adjustment disorder with depressed mood. Continue fluoxetine 20 mg per tube. Dry mouth. * Opiates may contribute, as may cetirizine. * Discontinued cetirizine. Initiate Biotene mouth rinse. Thyroid nodules seen on chest CT. TSH within normal limits. Follow up with Endocrinology after discharge. Prophylaxis. Continue enoxaparin 40 mg subcutaneous daily until his mobility considerably increases. Continue lansoprazole 30 mg oral liquid per tube daily. DISPOSITION: Making significant improvement but still seems unlikely to return home to single-level mobile home with his with several stairs to enter. Case Management will initiate Medicaid application in case he needs long-term care placement. Tentative discharge date set for 05/05/2018. FOLLOW-UP: With Neurosurgery after discharge from inpatient rehabilitation. Follow up with endocrinology regarding thyroid nodules. 04/27/18 12:59 Subjective: Has diarrhea yesterday and today. Has had nausea and using frequent ondansetron. Otherwise denies abdominal pain. No fevers or chills. No cough or dyspnea. Has been advanced to dysphagia 2 diet with thin liquids after VFSS yesterday. Objective: Vital Signs Temp Pulse Resp BP Pulse Ox 36.8 C 81 16 138/78 H 93 04/27/18 06:49 04/27/18 06:49 04/27/18 06:49 04/27/18 06:49 04/27/18 06:49 Laboratory Results 04/24/18 06:30 04/24/18 06:30 04/26/18 04/27/18 04/28/18 05:59 05:59 05:59 Intake Total 2177 660 1310 Output Total 1100 400 300 Balance 1283 423 8941 PT 26.5 SEC (12.0-15.0) H 04/27/18 06:00 INR 2.44 (0.83-1.16) H 04/27/18 06:00 - Time Spent With Patient Time Spent With Patient: Greater than 35 min floor time today, including more than 50% of time in coordination of care during staffing meeting, and counseling patient. Physical Exam - Physical Exam General Appearance: WD/WN, alert, no apparent distress Respiratory: normal breath sounds, No crackles, No rhonchi, No wheezing Cardiac/Chest: regular rate, rhythm, systolic murmur, No edema Skin: normal color, warm/dry Neuro/Psych: alert, normal mood/affect, abnormal cerebellar tests, motor weakness (Bilateral biceps), other (Left forearm and hand tremor with extension at elbow after passive contraction. Mild extensor tone on the left arm.) ICD10 Worksheet Patient Problems: Problems Problem Status Onset Cervical spinal stenosis Acute S/P cervical spinal fusion Acute
[2018-04-27] MEDS ORDERED: WARFARIN SODIUM 3 MG TAB PO ONE (16:00)
[2018-04-27] MEDS: oxyCODONE IR 5 MG TAB PO PRN ×2 (16:53→21:05)
[2018-04-27] MEDS: metFORMIN HCL 500 MG TAB PO SCH (16:54)
[2018-04-27] MEDS ORDERED: LORazepam 1 MG/0.5 ML UDSYR PO PRN (17:00)
[2018-04-27] MEDS ORDERED: POLYETHYLENE GLYCOL 3350 17 GM PKT PO PRN (17:00)
[2018-04-27] MEDS ORDERED: SENNOSIDES 17.6 MG/10 ML UDL PO PRN (17:00)
[2018-04-27] MEDS ORDERED: traZODone 50 MG TAB PO PRN (17:00)
[2018-04-27] MEDS: METHYL SALICYLATE/MENTHOL OINTMENT TP PRN ×2 (17:51→21:31)
[2018-04-27] MEDS: traZODone 50 MG TAB PO SCH (17:51)
[2018-04-27] MEDS ORDERED: CEPHALEXIN 250 MG/5 ML BULK BOTTLE PO SCH (18:00)
[2018-04-27] MEDS: NYSTATIN POWDER 15 GM BTL TP PRN (21:00)
[2018-04-27] MEDS: ACETAMINOPHEN 650 MG/20.3 ML UDCUP PO SCH (21:06)
[2018-04-27] MEDS: INSULIN GLARGINE 100 UNITS/ML UNIT SC SCH (21:09)
[2018-04-28] MEDS: ONDANSETRON DISINTEGRATING 4 MG TAB PO PRN ×2 (00:57→06:29)
[2018-04-28] MEDS: ACETAMINOPHEN 650 MG/20.3 ML UDCUP PO SCH ×3 (06:03→20:13)
[2018-04-28 08:18] LABS: INR 2.37 (0.83-1.16); PROTIME(PATIENT) 25.9 SEC (12.0-15.0)
[2018-04-28] MEDS: FLUOXETINE 4 MG/ML 30 ML BOTTLE PO SCH (08:39)
[2018-04-28] MEDS: LANSOPRAZOLE SUSP 30MG/10ML UDSYR (Adult) PO SCH (08:39)
[2018-04-28] MEDS: METHYL SALICYLATE/MENTHOL OINTMENT TP PRN ×2 (08:39→17:43)
[2018-04-28] MEDS: metFORMIN HCL 500 MG TAB PO SCH ×2 (08:40→17:41)
[2018-04-28] MEDS: ARNICA TP SCH ×4 (09:09→21:56)
[2018-04-28] MEDS: WARFARIN SODIUM 3 MG TAB PO SCH (16:54)
[2018-04-28] MEDS: traZODone 50 MG TAB PO SCH (17:41)
--- NOTE | 2018-04-28 17:54 | SOAPPROG ---
SOAP Progress Note Assessment/Plan: Assessment: 78-year-old man with cervical myelopathy s/p ACDF C3-C6, with dysphagia and bilateral C5 nerve root palsy Dysphagia. Much improved. Advanced to dysphagia 2 texture and thin liquids after VFSS 04/26/2018. Continue treatment per [employer]. 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 * Functional independence measure 55 on 04/27/2018. 2 person transfer per nursing. Moderate assistance for bed mobility. Transfer varies from minimal assistance to maximal assistance of 2. Sliding board transfer moderate assistance of 1. Ambulated 20 ft x 2 with 2 people assisting for balance and wheelchair following. Able to accomplish grooming and hygiene using overhead slings to raise arms and remove gravity challenge. Otherwise dependent for ADLs. * Continue PT and OT with the goal of modified independence for bed mobility, transfers, and wheelchair mobility, and a setup and possible assistance for dressing and bathing. Pulmonary embolus. Continue oxygen as needed. Continue warfarin, with dosing per pharmacy, and bridging with enoxaparin. GI. Has had constipation and vomiting; constipation was overcorrected and had diarrhea. * Intermittently has nausea after bolus feedings. Dietitian continues to adjust tube feeding. * Discontinued milk of magnesia 04/26/2018 due to diarrhea. Serology neg for C difficile 04/27/2018. * Observe for improvement as he is switching to p.o. nutrition. Diabetes mellitus type 2. * Glu 132 this am * Cont current tx plan Left hand arthralgias. Exam 04/20/2018 not consistent with gout. Not interfering significantly with function. Trial of ice 10 min at a time 3 times a day as needed. Continue acetaminophen, tramadol and/or oxycodone as needed. Symptom management. * Using intermittent oxycodone for left thumb pain, likely osteoarthritis. * Lorazepam 0.5 mg per tube q.4 hours p.r.n. muscle spasm, anxiety or insomnia; generally has a dose at approximately 9:00 p.m. * Senna oral liquid per G-tube PRN for opiate induced constipation; dose range 8.8 mg twice daily to 17.6 mg twice daily. * Bisacodyl suppository prn. * Sleeping well with trazodone and lorazepam. * Dry mouth. Opiates may contribute, Initiate Biotene mouth rinse. Adjustment disorder with depressed mood. Continue fluoxetine 20 mg per tube. Prophylaxis. Continue enoxaparin 40 mg subcutaneous daily until his mobility considerably increases. Continue lansoprazole 30 mg oral liquid per tube daily. DISPOSITION: Making significant improvement but still seems unlikely to return home to single-level mobile home with his with several stairs to enter. Case Management will initiate Medicaid application in case he needs long-term care placement. Tentative discharge date set for 05/05/2018. FOLLOW-UP: With Neurosurgery after discharge from inpatient rehabilitation. Follow up with endocrinology regarding thyroid nodules. 04/28/18 17:50 Subjective: No new problems or C/O's No F/C/CP/SOB/N/V Pain control appears adequate Objective: Vital Signs Temp Pulse Resp BP Pulse Ox 36.6 C 95 18 152/93 H 93 04/28/18 17:46 04/28/18 17:46 04/28/18 17:46 04/28/18 17:46 04/28/18 17:46 Laboratory Results 04/24/18 06:30 04/24/18 06:30 04/27/18 04/28/18 04/29/18 05:59 05:59 05:59 Intake Total 660 3106 1115 Output Total 400 1600 125 Balance 260 1506 990 PT 25.9 SEC (12.0-15.0) H 04/28/18 06:00 INR 2.37 (0.83-1.16) H 04/28/18 06:00 Physical Exam - Physical Exam General Appearance: alert, no apparent distress Neck: full range of motion Respiratory: lungs clear Cardiac/Chest: regular rate, rhythm Skin: normal color, warm/dry Extremities: No normal range of motion Neuro/Psych: alert, normal mood/affect, oriented x 3, motor weakness, sensory deficit, other (no acute changes) ICD10 Worksheet Patient Problems: Problems Problem Status Onset Cervical spinal stenosis Acute S/P cervical spinal fusion Acute
[2018-04-28] MEDS: oxyCODONE IR 5 MG TAB PO PRN (20:13)
[2018-04-28] MEDS: INSULIN GLARGINE 100 UNITS/ML UNIT SC SCH (21:56)
[2018-04-29] MEDS: ACETAMINOPHEN 650 MG/20.3 ML UDCUP PO SCH (05:42)
[2018-04-29] MEDS: metFORMIN HCL 500 MG TAB PO SCH ×2 (08:37→17:32)
[2018-04-29] MEDS: LANSOPRAZOLE SUSP 30MG/10ML UDSYR (Adult) PO SCH (08:37)
[2018-04-29] MEDS: ARNICA TP SCH ×3 (08:38→21:11)
[2018-04-29] MEDS: FLUoxetine 20 MG CAP PO SCH (11:18)
[2018-04-29] MEDS: FLUOXETINE 4 MG/ML 30 ML BOTTLE PO SCH (11:22)
--- NOTE | 2018-04-29 11:54 | SOAPPROG ---
SOAP Progress Note Assessment/Plan: Assessment: 78-year-old man with cervical myelopathy s/p ACDF C3-C6, with dysphagia and bilateral C5 nerve root palsy Dysphagia. Much improved. Advanced to dysphagia 2 texture and thin liquids after VFSS 04/26/2018. Continue treatment per SPOUT TENDER. Changed all PO meds from liquid to tab/cap. Bilateral proximal upper extremity weakness c/w C5 palsy. * Functional independence measure 55 on 04/27/2018. 2 person transfer per nursing. Moderate assistance for bed mobility. Transfer varies from minimal assistance to maximal assistance of 2. Sliding board transfer moderate assistance of 1. Ambulated 20 ft x 2 with 2 people assisting for balance and wheelchair following. Able to accomplish grooming and hygiene using overhead slings to raise arms and remove gravity challenge. Otherwise dependent for ADLs. * Continue PT and OT with the goal of modified independence for bed mobility, transfers, and wheelchair mobility, and a setup and possible assistance for dressing and bathing. Pulmonary embolus. Continue oxygen as needed. Continue warfarin, with dosing per pharmacy, and bridging with enoxaparin. GI. Has had constipation and vomiting; constipation was overcorrected and had diarrhea. * Intermittently has nausea after bolus feedings. Dietitian continues to adjust tube feeding. * Discontinued milk of magnesia 04/26/2018 due to diarrhea. Serology neg for C difficile 04/27/2018. * Observe for improvement as he is switching to p.o. nutrition. Diabetes mellitus type 2. * Cont current tx plan Left hand arthralgias. Exam 04/20/2018 not consistent with gout. Not interfering significantly with function. Trial of ice 10 min at a time 3 times a day as needed. Continue acetaminophen, tramadol and/or oxycodone as needed. Symptom management. * Using intermittent oxycodone for left thumb pain, likely osteoarthritis. * Lorazepam 0.5 mg per tube q.4 hours p.r.n. muscle spasm, anxiety or insomnia; generally has a dose at approximately 9:00 p.m. * Senna oral liquid per G-tube PRN for opiate induced constipation; dose range 8.8 mg twice daily to 17.6 mg twice daily. * Bisacodyl suppository prn. * Sleeping well with trazodone and lorazepam. * Dry mouth. Opiates may contribute, Initiate Biotene mouth rinse. Adjustment disorder with depressed mood. Continue fluoxetine 20 mg per tube. Prophylaxis. Continue enoxaparin 40 mg subcutaneous daily until his mobility considerably increases. Continue lansoprazole 30 mg oral liquid per tube daily. DISPOSITION: Making significant improvement but still seems unlikely to return home to single-level mobile home with his with several stairs to enter. Case Management will initiate Medicaid application in case he needs long-term care placement. Tentative discharge date set for 05/05/2018. FOLLOW-UP: With Neurosurgery after discharge from inpatient rehabilitation. Follow up with endocrinology regarding thyroid nodules. 04/29/18 11:51 04/29/18 11:54 Subjective: In good spirits Denies significant pain. No F/C/CP/SOB/N/V/D/C Objective: Vital Signs Temp Pulse Resp BP Pulse Ox 36.4 C 84 18 123/76 H 90 L 04/29/18 05:52 04/29/18 05:52 04/29/18 05:52 04/29/18 05:52 04/29/18 05:52 Laboratory Results 04/24/18 06:30 04/24/18 06:30 04/28/18 04/29/18 04/30/18 05:59 05:59 05:59 Intake Total 3106 1965 120 Output Total 1600 1525 Balance 1506 440 120 PT 25.9 SEC (12.0-15.0) H 04/28/18 06:00 INR 2.37 (0.83-1.16) H 04/28/18 06:00 Physical Exam - Physical Exam General Appearance: alert, no apparent distress Neck: full range of motion, normal inspection Respiratory: lungs clear Cardiac/Chest: regular rate, rhythm Abdomen: normal bowel sounds, soft, other (PEG WNL) Skin: normal color, warm/dry Extremities: pedal edema, No calf tenderness Neuro/Psych: alert, normal mood/affect, oriented x 3, motor weakness, sensory deficit, other (no acute changes) ICD10 Worksheet Patient Problems: Problems Problem Status Onset Cervical spinal stenosis Acute S/P cervical spinal fusion Acute
[2018-04-29] MEDS: WARFARIN SODIUM 4 MG TAB PO SCH (15:47)
[2018-04-29] MEDS: ACETAMINOPHEN 500 MG TAB PO SCH ×2 (15:47→20:57)
[2018-04-29] MEDS: traZODone 50 MG TAB PO SCH (17:33)
[2018-04-29] MEDS: INSULIN GLARGINE 100 UNITS/ML UNIT SC SCH (21:03)
[2018-04-29] MEDS: oxyCODONE IR 5 MG TAB PO PRN (21:10)
[2018-04-29] MEDS: METHYL SALICYLATE/MENTHOL OINTMENT TP PRN (21:14)
[2018-04-29] MEDS: LORazepam 0.5 MG TAB PO PRN (22:16)
[2018-04-30] MEDS: ACETAMINOPHEN 500 MG TAB PO SCH ×3 (06:08→21:05)
[2018-04-30] MEDS: FLUoxetine 20 MG CAP PO SCH (08:06)
[2018-04-30] MEDS: ARNICA TP SCH ×4 (08:06→21:06)
[2018-04-30] MEDS: PANTOPRAZOLE SODIUM 40 MG TAB PO SCH (08:06)
[2018-04-30] MEDS: metFORMIN HCL 500 MG TAB PO SCH ×2 (08:06→17:43)
[2018-04-30] MEDS: oxyCODONE IR 5 MG TAB PO PRN ×3 (12:56→21:49)
--- NOTE | 2018-04-30 14:16 | SOAPPROG ---
SOAP Progress Note Assessment/Plan: Assessment: 78-year-old man with cervical myelopathy s/p ACDF C3-C6, with dysphagia and bilateral C5 nerve root palsy Dysphagia. Much improved. Advanced to dysphagia 2 texture and thin liquids. Continue treatment per OFFICE RN. Changed all PO meds from liquid to tab/cap. Bilateral proximal upper extremity weakness c/w C5 palsy. * Functional independence measure 55 on 04/27/2018. 2 person transfer per nursing. Moderate assistance for bed mobility. Transfer varies from minimal assistance to maximal assistance of 2. Sliding board transfer moderate assistance of 1. Ambulated 20 ft x 2 with 2 people assisting for balance and wheelchair following. Able to accomplish grooming and hygiene using overhead slings to raise arms and remove gravity challenge. Otherwise dependent for ADLs. * Continue PT and OT with the goal of modified independence for bed mobility, transfers, and wheelchair mobility, and a setup and possible assistance for dressing and bathing. Pulmonary embolus. Continue oxygen as needed. Continue warfarin, with dosing per pharmacy, (PT/INR pend) and bridging with enoxaparin. GI. Loose stools last pm. * bowel meds held. * Serology neg for C difficile 04/27/2018. * possibly 2/2 to switching to p.o. nutrition. Diabetes mellitus type 2. * FBG 106 * Cont current tx plan Left hand Pain. Per Dr Cisse exam 04/20/2018 not consistent with gout. Not interfering significantly with function. Trial of ice 10 min at a time 3 times a day as needed. Continue acetaminophen, tramadol and/or oxycodone as needed. Could this be Neuropathic pain? Symptom management. * Using intermittent oxycodone for left thumb pain, likely osteoarthritis. R/O neuropathic pain. * Lorazepam 0.5 mg per tube q.4 hours p.r.n. muscle spasm, anxiety or insomnia; generally has a dose at approximately 9:00 p.m. * Sleeping well with trazodone and lorazepam. * Dry mouth. Opiates may contribute, Initiate Biotene mouth rinse. Adjustment disorder with depressed mood. Continue fluoxetine 20 mg per tube. Prophylaxis. Continue enoxaparin 40 mg subcutaneous daily until his mobility considerably increases. Continue lansoprazole 30 mg oral liquid per tube daily. DISPOSITION: Making significant improvement but still seems unlikely to return home to single-level mobile home with his with several stairs to enter. Case Management will initiate Medicaid application in case he needs long-term care placement. Tentative discharge date set for 05/05/2018. FOLLOW-UP: With Neurosurgery after discharge from inpatient rehabilitation. Follow up with endocrinology regarding thyroid nodules. 04/30/18 14:11 Subjective: Diarrhea last night, none so far today. Hold bowel meds. Consider lomitil PRN No F/C/CP/SOB/N/V L thumb pain persist, possibly worsening. Consider neuropathic origin Objective: Vital Signs Temp Pulse Resp BP Pulse Ox 36.7 C 71 18 145/87 H 92 04/30/18 06:10 04/30/18 06:10 04/30/18 06:10 04/30/18 06:10 04/30/18 06:10 Laboratory Results 04/24/18 06:30 04/24/18 06:30 04/29/18 04/30/18 05/01/18 05:59 05:59 05:59 Intake Total 1965 1630 1187 Output Total 1525 1575 425 Balance 440 55 762 PT REJ 04/30/18 06:00 INR REJ 04/30/18 06:00 Physical Exam - Physical Exam General Appearance: alert, no apparent distress Neck: supple, other (incision well healed) Respiratory: lungs clear Cardiac/Chest: regular rate, rhythm Abdomen: normal bowel sounds, soft Skin: normal color, warm/dry Extremities: pedal edema, No calf tenderness Neuro/Psych: alert, normal mood/affect, oriented x 3, abnormal gait, motor weakness ICD10 Worksheet Patient Problems: Problems Problem Status Onset Cervical spinal stenosis Acute S/P cervical spinal fusion Acute
[2018-04-30] MEDS: WARFARIN SODIUM 3 MG TAB PO SCH (16:00)
[2018-04-30] MEDS: METHYL SALICYLATE/MENTHOL OINTMENT TP PRN ×2 (16:05→21:06)
[2018-04-30] MEDS: traZODone 50 MG TAB PO SCH (17:45)
[2018-04-30] MEDS: INSULIN GLARGINE 100 UNITS/ML UNIT SC SCH (21:05)
[2018-04-30] MEDS: LORazepam 0.5 MG TAB PO PRN (21:07)
[2018-05-01] MEDS: ACETAMINOPHEN 500 MG TAB PO SCH ×3 (06:16→20:38)
[2018-05-01] MEDS: metFORMIN HCL 500 MG TAB PO SCH ×2 (07:28→18:01)
[2018-05-01] MEDS: FLUoxetine 20 MG CAP PO SCH (07:29)
[2018-05-01] MEDS: PANTOPRAZOLE SODIUM 40 MG TAB PO SCH (07:29)
[2018-05-01] MEDS: ARNICA TP SCH ×4 (07:30→20:47)
[2018-05-01 08:14] LABS: INR 2.19 (0.83-1.16); PROTIME(PATIENT) 24.4 SEC (12.0-15.0)
[2018-05-01] MEDS: ONDANSETRON DISINTEGRATING 4 MG TAB PO PRN (08:23)
--- NOTE | 2018-05-01 13:35 | SOAPPROG ---
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 Rehabilitation stay was interrupted 03/09/2018 for fluid collection in neck. Returned to rehabilitation 03/21/2018 with Dobhoff tube for feeding after failing VFSS; returned to hospital 03/29/2018 with Dobhoff tube clogged. Failed VFSS again and had PEG tube placement. Return to rehabilitation 04/02/2018. Had chest CT at [facility] 2017 for hypoxia with diagnosis of pulmonary embolus; returned to rehabilitation 04/08/2018. Dysphagia. Much improved. Advanced to dysphagia 2 texture and thin liquids after VFSS 04/26/2018. Subsequently advanced to dysphagia 3 diet. * Continue treatment per [employer]CHNICIAN. 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 He reports that he was told by Neurosurgery that it could be months to years for this to fully resolve. * Functional independence measure 31 on 04/04/2018 (was 30 on 03/24/2018 before most recent hospitalization;. was 47 on first rehabilitation stay).; improved to 35 on 04/10/2018; to 48 as of 04/17/2018; 52 on 04/24/2018; 55 on 04/28/2018. 2 person transfer per nursing. Moderate assistance for bed mobility. Transfer varies from minimal assistance to maximal assistance of 2. Sliding board transfer moderate assistance of 1. Ambulated 20 ft x 2 with 2 people assisting for balance and wheelchair following. Able to accomplish grooming and hygiene using overhead slings to raise arms and remove gravity challenge. Otherwise dependent for ADLs. * Continue PT and OT with the goal of modified independence for bed mobility, transfers, and wheelchair mobility, and a setup and possible assistance for dressing and bathing. Pulmonary embolus. Continue oxygen as needed. Continue warfarin, with dosing per pharmacy. GI. Has had constipation and vomiting; constipation was overcorrected and had diarrhea. * Intermittently has nausea after bolus feedings. Dietitian continues to adjust tube feeding. * Discontinued milk of magnesia 04/26/2018 due to diarrhea. C difficile negative 04/27/2018. * Observe for improvement as he is switching to p.o. nutrition. Left hand tremor. May be related to reinnervation. Continue to monitor. Diabetes mellitus type 2. * Increased insulin glargine 8 U starting 03/24/2018; decreasd to 6 U starting and to 4 units starting 04/19/2018. Daily blood sugar checks. Has not had hypoglycemia. * Restarted metformin 04/04/2018 at 500 mg twice daily. Increased to 1000 mg twice daily starting 04/06/2018. Was discontinued when dysphagia worsened and he had Dobhoff feeding. Left hand arthralgias. Exam 04/20/2018 not consistent with gout. Not interfering significantly with function. Trial of ice 10 min at a time 3 times a day as needed. Continue acetaminophen, tramadol and/or oxycodone as needed. Symptom management. * Using intermittent oxycodone for left thumb pain, likely osteoarthritis. * Lorazepam 0.5 mg per tube q.4 hours p.r.n. muscle spasm, anxiety or insomnia; generally has a dose at approximately 9:00 p.m. * Senna oral liquid per G-tube PRN for opiate induced constipation; dose range 8.8 mg twice daily to 17.6 mg twice daily. * Bisacodyl suppository prn. * Sleeping well with trazodone and lorazepam. CHRONIC/STABLE CONDITIONS: Cellulitis at PEG site. * Treated 04/10/2018 with 5 days of cephalexin. * Had recurrent symptoms. 7 day course of cephalexin completing 04/27/2018. 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 Symptoms are resolved. No indication to continue acyclovir; discontinued 04/06/2018. Reduced breath sounds, right lung neely. Obtained chest x-ray 03/22/2018, read by radiologist as atelectasis versus patchy infiltrate. 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 He is not hypoxic, coughing or febrile. There is no specific treatment indicated. Continue incentive spirometry. History of hypertension, currently on no hypertensives. Blood pressure will be monitored and medications will be added if indicated. He was previously on lisinopril and triamterene/hydrochlorothiazide. History of dyslipidemia. Reviewed lipid panel, 04/04/2018. No indication for statin. Adjustment disorder with depressed mood. Continue fluoxetine 20 mg per tube. Dry mouth. * Opiates may contribute, as may cetirizine. * Discontinued cetirizine. Initiate Biotene mouth rinse. Thyroid nodules seen on chest CT. TSH within normal limits. Follow up with Endocrinology after discharge. Prophylaxis. Warfarin and pantoprazole. DISPOSITION: Making significant improvement but still seems unlikely to return home to single-level mobile home with his with several stairs to enter. Case Management will initiate Medicaid application in case he needs long-term care placement. Tentative discharge date set for 05/05/2018. FOLLOW-UP: With Neurosurgery after discharge from inpatient rehabilitation. Follow up with endocrinology regarding thyroid nodules. 05/01/18 13:31 Subjective: No complaints. Has advanced to full p.o. diet. He is twice daily to find easier to stand up and take a few steps. He has some return of steps activation but not antigravity. No cough or dyspnea, no fevers or chills. Now that he is eating food rather than taking tube feeds he has constipation, with last bowel movement recorded 2 days ago. Objective: Vital Signs Temp Pulse Resp BP Pulse Ox 36.6 C 85 18 135/71 H 94 05/01/18 06:19 05/01/18 06:19 05/01/18 06:19 05/01/18 06:19 05/01/18 06:19 Laboratory Results 04/24/18 06:30 04/24/18 06:30 04/30/18 05/01/18 05/02/18 05:59 05:59 05:59 Intake Total 1630 1947 240 Output Total 1575 2350 75 Balance 55 -403 165 PT 24.4 SEC (12.0-15.0) H 05/01/18 06:15 INR 2.19 (0.83-1.16) H 05/01/18 06:15 Physical Exam - Physical Exam General Appearance: WD/WN, alert, no apparent distress Respiratory: No respiratory distress, No accessory muscle use Skin: normal color, warm/dry Neuro/Psych: alert, normal mood/affect, oriented x 3, motor weakness (Bilateral biceps) ICD10 Worksheet Patient Problems: Problems Problem Status Onset Cervical spinal stenosis Acute S/P cervical spinal fusion Acute
[2018-05-01] MEDS: WARFARIN SODIUM 3 MG TAB PO SCH (16:57)
[2018-05-01] MEDS: traZODone 50 MG TAB PO SCH (18:00)
[2018-05-01] MEDS: oxyCODONE IR 5 MG TAB PO PRN ×2 (19:05→23:31)
[2018-05-01] MEDS: INSULIN GLARGINE 100 UNITS/ML UNIT SC SCH (20:38)
[2018-05-01] MEDS: METHYL SALICYLATE/MENTHOL OINTMENT TP PRN (20:47)
[2018-05-02] MEDS: LORazepam 0.5 MG TAB PO PRN ×2 (00:10→23:19)
[2018-05-02] MEDS: traMADol 50 MG TAB PO PRN (02:58)
[2018-05-02] MEDS: ACETAMINOPHEN 500 MG TAB PO SCH ×3 (05:45→18:38)
[2018-05-02] MEDS: metFORMIN HCL 500 MG TAB PO SCH ×2 (07:21→17:53)
[2018-05-02] MEDS: FLUoxetine 20 MG CAP PO SCH (07:22)
[2018-05-02] MEDS: PANTOPRAZOLE SODIUM 40 MG TAB PO SCH (07:23)
[2018-05-02] MEDS: ARNICA TP SCH ×3 (07:36→18:38)
--- NOTE | 2018-05-02 12:39 | SOAPPROG ---
SOAP Progress Note Assessment/Plan: 78-year-old male with cervical spine myelopathy status post ACDF of C3 through C6, complicated by dysphagia. Complicated course. Today's update: Tolerating a dysphagia diet, working toward self feeding though goal to ensure that he is tolerating p.o. Safely before adding in the complexity of self feeding. Discussed options for orthoses at length with occupational therapy in the patient, working towards the goal of increased independence acknowledging that he will likely continue to have neurological improvement over time. Still having left-sided some pain as well as ring finger pain, getting left-sided plain films to evaluate for occult fracture given his history of swelling on that side. Continue low-dose glargine given premorbid diabetes, goal to minimize interventions. Speech to follow up with reports of some coughing with medication. A total of 35 min was spent on the floor in the care of the patient, the majority of which was spent counseling coordination of care regarding therapy coordination and discharge planning with the team. Additional issues reviewed without change today include additional rehabilitation plan, GI prophylaxis, bilateral upper limb edema, thyroid nodules on chest CT, dry mouth, HSV lesion, hemidiaphragm, hypertension, dyslipidemia, adjustment disorder, pulmonary embolus. 04/18/18 10:25 05/02/18 12:35 Subjective: Chief complaint: Rehab progress and orthotics No acute events overnight. Patient denies any new shortness of breath or chest pain, no new numbness, tingling, or weakness. He is working with occupational therapy at the time of the discussion with him, he feels that the sling is helping his mobility on the right side. He notes continued improvement on the right side compared to the left. He feels that he is able to move his hands but not position them. His spirits heme brighter, he endorses that he is more optimistic. Still endorses left hand pain in the thumb and ring finger, swelling has improved. No prior x-rays. History of osteoarthritis in other joints including his right shoulder. Objective: Vital Signs Temp Pulse Resp BP Pulse Ox 36.6 C 75 18 141/87 H 92 05/02/18 08:00 05/02/18 08:00 05/02/18 08:00 05/02/18 08:00 05/02/18 08:00 Laboratory Results 04/24/18 06:30 04/24/18 06:30 05/01/18 05/02/18 05/03/18 05:59 05:59 05:59 Intake Total 2396 1190 Output Total 2350 1325 Balance -403 -135 PT 24.4 SEC (12.0-15.0) H 05/01/18 06:15 INR 2.19 (0.83-1.16) H 05/01/18 06:15 Physical Exam - Physical Exam General Appearance: WD/WN, alert, no apparent distress EENT: No scleral icterus (R), No scleral icterus (L) Respiratory: No respiratory distress, No accessory muscle use Cardiac/Chest: normal peripheral pulses, regular rate, rhythm Skin: normal color, warm/dry, No cyanosis, No diaphoresis Extremities: No pedal edema, No swelling Neuro/Psych: alert, normal mood/affect, other (Right-sided biceps less than 3, left-sided bicep trace strength. Able to open and close hands bilaterally. Triceps approximately 4-bilaterally.) ICD10 Worksheet Patient Problems: Problems Problem Status Onset Cervical spinal stenosis Acute S/P cervical spinal fusion Acute
[2018-05-02] MEDS: WARFARIN SODIUM 3 MG TAB PO SCH (15:13)
[2018-05-02] MEDS: traZODone 50 MG TAB PO SCH (17:53)
[2018-05-02] MEDS: oxyCODONE IR 5 MG TAB PO PRN ×2 (18:23→23:20)
[2018-05-02] MEDS: INSULIN GLARGINE 100 UNITS/ML UNIT SC SCH (20:40)
[2018-05-03] MEDS: ACETAMINOPHEN 500 MG TAB PO SCH ×3 (06:33→20:46)
[2018-05-03] MEDS: PANTOPRAZOLE SODIUM 40 MG TAB PO SCH (08:06)
[2018-05-03] MEDS: FLUoxetine 20 MG CAP PO SCH (08:06)
[2018-05-03] MEDS: ARNICA TP SCH ×3 (08:06→22:58)
[2018-05-03] MEDS: metFORMIN HCL 500 MG TAB PO SCH ×2 (08:06→16:26)
[2018-05-03 08:45] LABS: INR 2.31 (0.83-1.16); PROTIME(PATIENT) 25.4 SEC (12.0-15.0)
[2018-05-03] MEDS ORDERED: SENNOSIDES 1 TAB PO PRN (14:40)
--- NOTE | 2018-05-03 14:47 | SOAPPROG ---
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 Rehabilitation stay was interrupted 03/09/2018 for fluid collection in neck. Returned to rehabilitation 03/21/2018 with Dobhoff tube for feeding after failing VFSS; returned to hospital 03/29/2018 with Dobhoff tube clogged. Failed VFSS again and had PEG tube placement. Return to rehabilitation 04/02/2018. Had chest CT at [facility] 2017 for hypoxia with diagnosis of pulmonary embolus; returned to rehabilitation 04/08/2018. Dysphagia. Much improved. Advanced to dysphagia 2 texture and thin liquids after VFSS 04/26/2018. Subsequently advanced to dysphagia 3 diet. * Continue treatment per COAL INSPECTOR. 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 He reports that he was told by Neurosurgery that it could be months to years for this to fully resolve. * Functional independence measure 31 on 04/04/2018 (was 30 on 03/24/2018 before most recent hospitalization;. was 47 on first rehabilitation stay).; improved to 35 on 04/10/2018; to 48 as of 04/17/2018; 52 on 04/24/2018; 55 on 04/28/2018. On 05/03/2018 functional independence measure is 51 due to loss of 4 points on bowel management due to diarrhea, which has resolved. Otherwise no change in function. Continues 2 person transfer per nursing. Moderate assistance for bed mobility. Transfer varies from minimal assistance to maximal assistance of 2. Sliding board transfer moderate assistance of 1. Ambulated 20 ft x 2 with 2 people assisting for balance and wheelchair following. Able to accomplish grooming and hygiene using overhead slings to raise arms and remove gravity challenge. Otherwise dependent for ADLs. * Continue PT and OT with the goal of modified independence for bed mobility, transfers, and wheelchair mobility, and a setup and possible assistance for dressing and bathing. Pulmonary embolus. Continue oxygen as needed. Continue warfarin, with dosing per pharmacy. GI. Has had constipation and vomiting; constipation was overcorrected and had diarrhea. * Intermittently has nausea after bolus feedings. Dietitian continues to adjust tube feeding. * Discontinued milk of magnesia 04/26/2018 due to diarrhea. C difficile negative 04/27/2018. * Observe for improvement as he is switching to p.o. nutrition. Continue p.r.n. laxatives. Left hand arthralgias. Exam 04/20/2018 not consistent with gout. Not interfering significantly with function. Trial of ice 10 min at a time 3 times a day as needed. Continue acetaminophen, tramadol and/or oxycodone as needed. * Had x-ray done 05/02/2018 interpreted by high lift operator as erosive arthritis. Patient denies any history of psoriasis and he has no rash and no nail pitting. Will check labs, CBC, CMP, ESR, CR P. Initiate celecoxib 100 mg p.o. twice daily on 05/03/2018 as he is concurrently on warfarin and there is lower chance of GI ulceration with celecoxib then with other NSAIDs. Continue pantoprazole for GI prophylaxis. Discontinue celecoxib if there is not a dramatic response. Diabetes mellitus type 2. * Increased insulin glargine 8 U starting 03/24/2018; decreasd to 6 U starting and to 4 units starting 04/19/2018. Daily blood sugar checks. Has not had hypoglycemia. * Restarted metformin 04/04/2018 at 500 mg twice daily. Increased to 1000 mg twice daily starting 04/06/2018. Was discontinued when dysphagia worsened and he had Dobhoff feeding. * Now that tube feeding has been discontinued and he is taking nutrition orally , fasting blood sugar is consistently below 100, often in the 80s. Discontinue insulin starting 05/04/2018 and continue to monitor her fasting blood sugars. Symptom management. * Using intermittent oxycodone for left thumb pain, likely osteoarthritis. * Lorazepam 0.5 mg per tube q.4 hours p.r.n. muscle spasm, anxiety or insomnia; generally has a dose at approximately 9:00 p.m. * Senna oral liquid per G-tube PRN for opiate induced constipation; dose range 8.8 mg twice daily to 17.6 mg twice daily. * Bisacodyl suppository prn. * Sleeping well with trazodone and lorazepam. CHRONIC/STABLE CONDITIONS: Cellulitis at PEG site. * Treated 04/10/2018 with 5 days of cephalexin. * Had recurrent symptoms. 7 day course of cephalexin completing 04/27/2018. 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 Symptoms are resolved. No indication to continue acyclovir; discontinued 04/06/2018. Reduced breath sounds, right lung neely. Obtained chest x-ray 03/22/2018, read by radiologist as atelectasis versus patchy infiltrate. 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 He is not hypoxic, coughing or febrile. There is no specific treatment indicated. Continue incentive spirometry. History of hypertension, currently on no hypertensives. Blood pressure will be monitored and medications will be added if indicated. He was previously on lisinopril and triamterene/hydrochlorothiazide. History of dyslipidemia. Reviewed lipid panel, 04/04/2018. No indication for statin. Adjustment disorder with depressed mood. Continue fluoxetine 20 mg per tube. Dry mouth. * Opiates may contribute, as may cetirizine. * Discontinued cetirizine. Initiate Biotene mouth rinse. Thyroid nodules seen on chest CT. TSH within normal limits. Follow up with Endocrinology after discharge. Prophylaxis. Warfarin and pantoprazole. DISPOSITION: Attended staffing, 15 min. Discussed with case management, nursing, dietitian, PT, OT, COAL INSPECTOR he seems to have reached a functional plateau and may not be able to progress significantly without better return of biceps activation. OT exploring dynamic orthoses which might facilitate use of arms. Seems unlikely to return home to single-level mobile home with his with several stairs to enter. Case management is working with family. Medicaid application is in process and family is considering discharge to SNF. Discharge date will be established with [facility]. FOLLOW-UP: With Neurosurgery after discharge from inpatient rehabilitation. Follow up with endocrinology regarding thyroid nodules. 05/03/18 14:38 Subjective: Left thumb joint still feels sore. Otherwise no complaints. No fevers or chills, no cough or dyspnea. Currently has constipation x2 days; diarrhea has resolved. Objective: Vital Signs Temp Pulse Resp BP Pulse Ox 36.6 C 77 18 143/84 H 94 05/03/18 08:00 05/03/18 08:00 05/03/18 08:00 05/03/18 08:00 05/03/18 08:00 Laboratory Results 04/24/18 06:30 04/24/18 06:30 05/02/18 05/03/18 05/04/18 05:59 05:59 05:59 Intake Total 1190 400 480 Output Total 1325 1400 Balance -135 -1000 480 PT 25.4 SEC (12.0-15.0) H 05/03/18 06:00 INR 2.31 (0.83-1.16) H 05/03/18 06:00 - Time Spent With Patient Time Spent With Patient: Greater than 35 min floor time today, including more than 50% of time in coordination of care during staffing meeting, and counseling patient. Physical Exam - Physical Exam General Appearance: WD/WN, alert, no apparent distress Respiratory: No respiratory distress, No accessory muscle use Skin: normal color, warm/dry, other (No nail pitting) Extremities: swelling (Left hand greater than right hand) Neuro/Psych: alert, normal mood/affect, oriented x 3, motor weakness (Bilateral biceps) ICD10 Worksheet Patient Problems: Problems Problem Status Onset Cervical spinal stenosis Acute S/P cervical spinal fusion Acute
[2018-05-03] MEDS: traMADol 50 MG TAB PO PRN (16:27)
[2018-05-03] MEDS: WARFARIN SODIUM 4 MG TAB PO SCH (16:27)
[2018-05-03] MEDS: traZODone 50 MG TAB PO SCH (18:13)
[2018-05-03] MEDS: oxyCODONE IR 5 MG TAB PO PRN (20:47)
[2018-05-03] MEDS: METHYL SALICYLATE/MENTHOL OINTMENT TP PRN (20:47)
[2018-05-04] MEDS: ACETAMINOPHEN 500 MG TAB PO SCH ×3 (05:26→19:59)
[2018-05-04] MEDS: traMADol 50 MG TAB PO PRN (05:26)
[2018-05-04] MEDS: metFORMIN HCL 500 MG TAB PO SCH ×2 (07:59→17:57)
[2018-05-04 08:01] LABS: PLATELET COUNT 224 10^3/uL (150-400)
[2018-05-04] MEDS: FLUoxetine 20 MG CAP PO SCH (08:28)
[2018-05-04] MEDS: PANTOPRAZOLE SODIUM 40 MG TAB PO SCH (08:28)
--- NOTE | 2018-05-04 10:44 | SOAPPROG ---
SOAP Progress Note Assessment/Plan: 78-year-old male with cervical spine myelopathy status post ACDF of C3 through C6, complicated by dysphagia. Complicated course. Today's update: Patient doing well from a rehab perspective. Labs show a mild anemia, mild eosinophilia, mildly low total protein and albumin. ESR and CRP are normal. Continue to monitor these issues. Also has an area around the coccyx that does not appear to be a pressure wound, but does have some small amount of desquamation. No surrounding erythema. Continue to monitor this as well, minimize pressure and shear, keep area dry and protected. He endorses that his hand does not feel much different today after starting anti- inflammatory treatment. Continue to monitor. Total of 25 min was spent on the floor in the care of the patient, the majority of which was spent in counseling coordination of care regarding rehab progress and discussion of skin health and wound prevention. Additional issues reviewed without change today include additional rehabilitation plan, GI prophylaxis, bilateral upper limb edema, thyroid nodules on chest CT, dry mouth, HSV lesion, hemidiaphragm, hypertension, dyslipidemia, adjustment disorder, pulmonary embolus. 04/18/18 10:25 05/02/18 12:35 05/04/18 10:41 05/04/18 10:47 Subjective: Chief complaint: Rehab progress No acute events overnight. Patient endorses that he feels like rehab is going well, no new barriers to progress today. He feels that his hand pain is similar to prior days at this point. Not worse but not significantly better. No swelling. He denies any new shortness of breath or chest pain, no new numbness, tingling, or weakness. Still feels frustration at his inability to use his hands, resistant to comments suggesting that his hands are useful but he still has difficulty positioning them. Objective: Vital Signs Temp Pulse Resp BP Pulse Ox 36.4 C 74 18 128/82 H 92 05/03/18 20:00 05/03/18 20:00 05/03/18 20:00 05/03/18 20:00 05/03/18 20:00 Laboratory Results 05/04/18 06:30 05/04/18 06:30 05/03/18 05/04/18 05/05/18 05:59 05:59 05:59 Intake Total 400 850 Output Total 1400 850 Balance -1000 0 PT 25.4 SEC (12.0-15.0) H 05/03/18 06:00 INR 2.31 (0.83-1.16) H 05/03/18 06:00 Physical Exam - Physical Exam General Appearance: WD/WN, alert, no apparent distress EENT: No scleral icterus (R), No scleral icterus (L) Respiratory: No respiratory distress, No accessory muscle use Cardiac/Chest: normal peripheral pulses, regular rate, rhythm, No edema Skin: normal color, warm/dry, No cyanosis Extremities: No pedal edema, No swelling Neuro/Psych: alert, normal mood/affect, other (Less than antigravity at the elbow flexors bilaterally, has shoulder retraction, antigravity hand movements.) ICD10 Worksheet Patient Problems: Problems Problem Status Onset Cervical spinal stenosis Acute S/P cervical spinal fusion Acute
[2018-05-04] MEDS: ARNICA TP SCH ×3 (14:59→22:33)
[2018-05-04] MEDS: WARFARIN SODIUM 3 MG TAB PO SCH (16:07)
[2018-05-04] MEDS: traZODone 50 MG TAB PO SCH (17:57)
[2018-05-04] MEDS: METHYL SALICYLATE/MENTHOL OINTMENT TP PRN (20:05)
[2018-05-04] MEDS: oxyCODONE IR 5 MG TAB PO PRN (22:34)
[2018-05-05] MEDS: ACETAMINOPHEN 500 MG TAB PO SCH ×2 (06:19→13:27)
[2018-05-05 08:05] LABS: INR 2.84 (0.83-1.16); PROTIME(PATIENT) 29.7 SEC (12.0-15.0)
[2018-05-05 08:08] VITALS: BP 143/84
[2018-05-05] MEDS: ARNICA TP SCH (08:11)
[2018-05-05] MEDS: metFORMIN HCL 500 MG TAB PO SCH (08:24)
[2018-05-05] MEDS: FLUoxetine 20 MG CAP PO SCH (08:25)
[2018-05-05] MEDS: PANTOPRAZOLE SODIUM 40 MG TAB PO SCH (08:25)
[2018-05-05] MEDS: METHYL SALICYLATE/MENTHOL OINTMENT TP PRN (11:03)
--- NOTE | 2018-05-05 14:58 | PDOREHIP ---
Admission [facility] - Admission - 3 Day Assessment Period Admission Date/Day 1: 04/08/18 Day 2: 04/09/18 Day 3: 04/10/18 - Active Diagnoses Comorbidities and Co-existing Conditions at Admission: 99208. DM (e.g. diabetic retinopathy, nephropathy, and neuropathy) - Skin Conditions Unhealed Pressure Ulcer (1 or more/Stage 1 or >)-Admission: 0. No (Late entry for 04/08/2018) Discharge [facility] - Discharge - 3 Day Assessment Period 2 Days Prior to Anticipated Discharge Date: 05/03/18 1 Day Prior to Anticipated Discharge Date: 05/04/18 Anticipated Discharge Date: 05/05/18
--- NOTE | 2018-05-05 14:59 | PDOREHIP ---
Admission [facility] - Admission - 3 Day Assessment Period Admission Date/Day 1: 04/08/18 Day 2: 04/09/18 Day 3: 04/10/18 Discharge [facility] - Discharge - 3 Day Assessment Period 2 Days Prior to Anticipated Discharge Date: 05/03/18 1 Day Prior to Anticipated Discharge Date: 05/04/18 Anticipated Discharge Date: 05/05/18 - Discharge Skin Conditions Unhealed Pressure Ulcer (1 or more/Stage 1 or >)-Discharge: 0. No
--- NOTE | 2018-05-05 15:47 | GDS ---
ADMITTING DIAGNOSIS: Weakness of bilateral upper extremities due to C5 nerve root palsy following C3 to C5 anterior cervical discectomy and fusion. DISCHARGE DIAGNOSIS: Weakness of bilateral upper extremities due to C5 nerve root palsy following C3 to C5 anterior cervical discectomy and fusion. OTHER DISCHARGE DIAGNOSES: 1. Diabetes mellitus. 2. Pulmonary embolus. 3. Erosive arthritis of the left hand. COMPLICATIONS: There were none. PROCEDURES: There were none. CONSULTATIONS: There were none. HISTORY/HOSPITAL COURSE: This patient has been in and out of inpatient rehabilitation since 03/02/2018. For details of prior admissions and discharges , please see hospital record. Briefly, he was admitted initially to rehabilitation with bilateral C5 nerve root palsy and bilateral upper arm weakness after C3 to C6 ACDF. Rehabilitation stay was interrupted on 2017 due to a fluid collection in his neck, which caused dysphagia and change in his voice. He was transferred to [facility], where it was found to be a CSF leak. He was treated with a lumbar drain. He stayed 12 days and returned to rehabilitation on 03/21/2018. He continued to have dysphagia, and a Dobbhoff tube had been placed for feeding and hydration. He had a video fluoroscopic swallow study which demonstrated aspiration. On 2017, the Dobbhoff tube became clogged and he was returned to [facility]. He failed a video fluoroscopic swallow study again and PEG tube was placed. He was returned to rehabilitation on 04/02/2018. He subsequently developed shortness of breath and tachycardia. He had a chest CT done at [facility] which showed a pulmonary embolus, and he returned to rehabilitation once again on 04/08/2018. He made progress in rehabilitation. Functional independence measure on 2017 was 30, consistent with needing assistance with all aspects of mobility and self-care. It improved during his stay to 55 on 04/28/2018, which is still consistent with usp level of care, and finally on 05/03/2018, functional independence measure was 51. The decline was due to loss of 4 points on bowel management due to diarrhea, which has subsequently resolved. He required assist of 2 people for transfer by nursing. He required moderate assistance for bed mobility. Transfers with therapies to have varied from minimal assistance of 1 to maximal assistance of 2. He could do a sliding board transfer with moderate assistance of 1. He was able to ambulate 20 feet 2 times with 2 people assisting for balance as well as wheelchair following, using a front-wheeled walker. Occupational therapy set him up with overhead slings to raise his arms and remove the gravity challenge from his biceps, and with these, he was able to accomplish grooming and hygiene. He was otherwise dependent for ADLs. He was treated with warfarin for pulmonary embolus and INR was stable. Constipation, diarrhea, nausea and vomiting. He had intermittent nausea when he was tube fed. There were multiple adjustments of rate and size of bolus feedings regarding nausea. He was very sensitive to any laxatives and would develop diarrhea. When he was finally switched to p.o. nutrition, his bowel habits normalized and he did not continue to need laxatives nor did he need antiemetics. He developed pain in joints of his left hand. There was initially some swelling and erythema, but subsequently that resolved and was not felt to be consistent with gout. He needed occasional tramadol or oxycodone for the pain. Hand x-ray was done on 05/02/2018 which showed erosive arthritis in the MCP joint of the thumb. He denied any history of psoriasis, and there was no rash or nail pitting found, so it is unlikely that this was due to psoriatic arthritis. He was treated with celecoxib 100 mg p.o. twice a day starting 05/03 and had some improvement. Celecoxib was chosen for the least risk of GI bleed with concurrent warfarin treatment. He was continued on pantoprazole as well for GI prophylaxis. He had been on insulin glargine for diabetes mellitus type 2. Blood sugar management was difficult while he was receiving tube feedings. However, as he returned toward normal diet, he ultimately was not requiring insulin at all. He was continued on metformin 1000 mg twice a day. Other issues which were chronic or resolved: There was a cellulitis at the PEG site which resolved after treatment with cephalexin. He had recurrent symptoms , and they resolved again after another course of cephalexin, which was completed 04/27/2018. In March, he was noted to have reduced breath sounds in the right lung neely. Chest x-ray on 03/22/2018, showed an elevated right hemidiaphragm consistent with a possible right phrenic nerve injury. His lung exam improved, and the x-ray was not repeated. He had a history of hypertension but ultimately was not requiring antihypertensive medications. He had previously been treated with lisinopril and triamterene/hydrochlorothiazide. He has a history of dyslipidemia. A lipid panel was drawn on 04/04/2018, and there was no indication to resume a statin which he had been taking previously. He was treated with fluoxetine 20 mg daily for what was considered adjustment disorder with depressed mood. The chest CT which was done to evaluate for pulmonary embolus also revealed thyroid nodules. His TSH was normal. DISCHARGE PLAN: Condition upon discharge is good. ACTIVITY: Ad christa but he needs assistance for mobility and activities of daily living. DIET: Regular. DISPOSITION: He is discharging to the Center at [facility] for continued rehabilitation. MEDICATIONS UPON DISCHARGE: 1. Acetaminophen 650 mg p.o. q.6 hours p.r.n. 2. Celecoxib 100 mg p.o. twice daily. 3. Fluoxetine 20 mg p.o. daily. 4. Lorazepam 0.5 mg q.4 hours p.r.n. 5. Metformin 1000 mg p.o. twice daily with meals. 6. Nystatin powder to perineum p.r.n. 7. Ondansetron 4 mg p.o. q.6 hours p.r.n. 8. Oxycodone 5 mg p.o. q.4 hours p.r.n. 9. Pantoprazole 40 mg p.o. daily. 10. Polyethylene glycol 17 g p.o. daily p.r.n. 11. Saliva substitute (Biotene) p.r.n. 12. Senna 1 tab p.o. twice daily p.r.n. 13. Tramadol 50 mg p.o. q.6 hours p.r.n. 14. Trazodone 25 mg daily at 1830 and 25 mg daily at 2230 p.r.n. 15. Warfarin 3 mg on Tuesday, Tuesday, Tuesday, , and Tuesday and 4 mg on Tuesday and Tuesday. ISSUES TO BE ADDRESSED AT FOLLOWUP: 1. Functional status and upper extremity weakness due to C5 nerve root palsy. It is expected that within weeks to months he will see improvement in his biceps strength. Attempts were made at inpatient rehabilitation to obtain dynamic orthoses for assisted elbow flexion, but these could not be obtained. Consider a physiatry consult through the [facility] to see if these can be obtained to improve his function. He has followup scheduled with Dr. Yeboah for 04/28/2018 at 10:40 a.m. 2. Pulmonary embolus. He should continue warfarin for 3-6 months. Duration of warfarin to be determined by [facility] care versus pulmonology. Date of the pulmonary embolus diagnosis was 04/07/2018. 3. Left hand arthralgias. Observe for effectiveness of NSAID. Consider further evaluation if symptoms are not adequately controlled. Consider evaluation by Rheumatology. 4. Diabetes mellitus type 2 has been well controlled. Continue metformin 1000 mg twice daily. 5. History of hypertension and history of dyslipidemia. These both had resolved during his rehabilitation stay. Observe for weight gain, development of hypertension, and consider repeat lipid panel in 3-6 months. 6. Adjustment disorder with depressed mood. Recommend continuing fluoxetine until his function begins to improve, at which point he will likely not need antidepressant medication. 7. Thyroid nodules on chest CT with a normal TSH. Advise follow up with Endocrinology. Copy requested to: Dr. Dale Dominguez [facility] /[id number]
== END 2018-05-05 14:28 | DRG 559 ==
LOC: BREH 13:34
PROVIDERS: ADMIT Internal Medicine; ATTEND Internal Medicine
PROC: F07M3ZZ Motor Function Treatment of Musculoskeletal System - Whole Body (ICD-10-PCS; principal; 2018-04-08)
PROC: F0636ZZ Communicative/Cognitive Integration Skills Treatment of Neurological System - Whole Body (ICD-10-PCS; principal; 2018-04-08)
PROC: F08Z7ZZ Vocational Activities and Functional Community or Work Reintegration Skills Treatment (ICD-10-PCS; principal; 2018-04-08)
PROC: F08Z4ZZ Home Management Treatment (ICD-10-PCS; principal; 2018-04-08)
DX: Z47.89 Encounter for other orthopedic aftercare (principal); R13.19 Other dysphagia; G54.2 Cervical root disorders, not elsewhere classified; I26.99 Other pulmonary embolism without acute cor pulmonale; K94.22 Gastrostomy infection; L03.311 Cellulitis of abdominal wall; F43.21 Adjustment disorder with depressed mood; M1A.0420 Idiopathic chronic gout, left hand, without tophus (tophi); I24.8 Other forms of acute ischemic heart disease; J90 Pleural effusion, not elsewhere classified; J98.11 Atelectasis; E11.9 Type 2 diabetes mellitus without complications; I10 Essential (primary) hypertension; E04.1 Nontoxic single thyroid nodule; K59.00 Constipation, unspecified; Z98.1 Arthrodesis status; Z93.1 Gastrostomy status; Z79.01 Long term (current) use of anticoagulants
CPT/HCPCS: 92526-GN; 92610-GN; 97110-GO; 97110-GP; 97112-GO; 97112-GP; 97116-GP; 97140-GO; 97162-GP; 97166-GO; 97530-GO; 97530-GP; 97535-GO; 97542-GP; 99366-GN; 99366-GO; J1650; J1815